=== PATIENT | female | born 1945 | race Caucasian/White ===

== ENCOUNTER 2020-01-02 14:41 | Outpatient (CLI) | payer MEDICARE, SELFPAY ==
--- NOTE | 2020-01-02 14:49 | XR_ITS ---
WS: [id number] XR chest 2V* [id number] REASON FOR EXAM: DYSPNEA, PERIPHERAL EDEMA, ACUTE LOWER RTI FINDINGS: The cardiac silhouette is not enlarged there is evidence of previous coronary bypass change s and sternotomy findings. Both lung garcia appear to be adequately aerated there is chronic changes in both lung garcia and the re is mild blunting of the right costophrenic angle similar to the previous exam April 06, 2019. There was no pneumonia are pulmonary edema or pleural effusion seen. XR/XR chest 2V* [id number] IMPRESSION: Previous coronary bypass changes Arteriosclerotic changes
== END 2020-01-02 14:42 | disposition home or self-care (01) ==
LOC: RAD 14:47
PROVIDERS: Family Provider Family Medicine; PCP Family Medicine; Visit Provider Family Medicine
DX: R06.00 Dyspnea, unspecified (principal); R60.9 Edema, unspecified; J22 Unspecified acute lower respiratory infection; Z95.5 Presence of coronary angioplasty implant and graft
CPT/HCPCS: 71046

== ENCOUNTER → 2020-01-30 11:36 | Outpatient (BNVA) | payer MEDICARE, SELFPAY | PROVIDERS: Family Provider Family Medicine; PCP Family Medicine; Visit Provider Podiatrist Foot & Ankle Surgery | DX: Q82.8 Other specified congenital malformations of skin (principal); M79.673 Pain in unspecified foot; M19.079 Primary osteoarthritis, unspecified ankle and foot; M77.32 Calcaneal spur, left foot | CPT/HCPCS: 73630 ==

== ENCOUNTER 2020-06-12 14:30 | Outpatient (CLI) | payer MEDICARE, SELFPAY ==
--- NOTE | 2020-06-12 14:36 | XR_ITS ---
WS: [id number] PROCEDURE: XR chest 2V* [id number] CLINICAL INFORMATION: COUGH COMPARISON: January 02, 2020 FINDINGS: Heart: Normal cardiac silhouette. Sternotomy coronary bypass Lungs: Moderate chronic emphysematous changes with mild interstitial thickening in the lung bases. Ti ny right pleural effusion pleural thickening. No acute pulmonary infiltrates. No focal pneumonia. Bones: Mild thoracic curve. XR/XR chest 2V* [id number] IMPRESSION: 1. Moderate chronic emphysematous changes. No acute pulmonary infiltrates. 2. Trace right pleural fluid or pleural thickening unchanged. 3. No other significant findings.
== END 2020-06-12 14:31 | disposition home or self-care (01) ==
LOC: RADWPI 14:34
PROVIDERS: Family Provider Family Medicine; PCP Family Medicine; Visit Provider Family Medicine
DX: R05 Cough (principal)
CPT/HCPCS: 71046

== ENCOUNTER 2020-07-03 03:57 | Emergency (ER) | payer MEDICARE, SELFPAY ==
[2020-07-03] VITALS (7 sets, daily range): BP systolic 123–180; BP diastolic 66–87; PULSE 60–82; RESP 16–21; TEMP 36.7; O2SAT 94–100; BMI 22.4
--- NOTE | 2020-07-03 04:19 | XR_ITS ---
WS: [id number] XR chest 1V portable [id number] REASON FOR EXAM: Syncope FINDINGS: Compared to previous examination of 06/12/2020, no significant interval change is identified. Previous coronary bypass surgery. Multiple coronary artery stents. Heart mildly enlarged. Chronic appearing interstitial changes in both lower lungs with mild blunting of both costophrenic an gles. XR/XR chest 1V portable [id number] IMPRESSION: Stable abnormal chest as above.
--- NOTE | 2020-07-03 04:19 | CTR_ITS ---
PROCEDURE INFORMATION: Exam: CT Head Without Contrast Exam date and time: 07/03/2020 4:43 AM Age: 75 years old Clinical indication: Injury or trauma; Fall; Blunt trauma (contusions or hematomas); Without loss of consciousness; Additional info: Syncope/injury TECHNIQUE: Imaging protocol: Computed tomography of the head without contrast. Radiation optimization: All CT scans at this facility use at least one of these dose optimization techniques: automated exposure control; mA and/or kV adjustment per patient size (includes targeted exams where dose is matched to clinical indication); or iterative reconstruction. COMPARISON: No relevant prior studies available. RADIATION DOSE METRICS: Total DLP (mGy-cm): 852.67 FINDINGS: Brain: There is decreased white matter density indicating chronic small vessel white matter ischemia. There is moderate diffuse chronic atrophy. No other abnormal focal parenchymal densities are seen. There is no intracranial hemorrhage, edema or other acute abnormality in the brain. Cerebral ventricles: No ventriculomegaly. Bones/joints: Unremarkable. No acute fracture. Paranasal sinuses: Visualized sinuses are unremarkable. No fluid levels. Mastoid air cells: Visualized mastoid air cells are well aerated. Vasculature: There is atherosclerotic calcification of the vertebral arteries and internal carotid siphons. Soft tissues: Unremarkable. CT/CT head wo con* [id number] IMPRESSION: 1. Chronic atrophy with chronic white matter ischemic changes. 2. No acute intracranial abnormality. Radiation Dose CTDIVOL = (mGy): DLP = 852.67 (mGy-cm)
--- NOTE | 2020-07-03 04:23 | ECG_ITS ---
[facility] Test Date: 2020-07-03 Pat Name: Ying Valdez Department: Room: Gender: Female Media Promoter: : 1945 Requested By: Shelbie Darden Order Number: [id number] Michael MD: Antonieta Ely M.D. Measurements Intervals [place] Rate: 77 P: [place]: -1 QRS: 118 QRSD: 144 T: -18 QT: 448 QTc: 509 Interpretive Statements ATRIAL FIBRILLATION RIGHT BUNDLE BRANCH BLOCK LEFT POSTERIOR FASCICULAR BLOCK [QRS AXIS > 109, INFERIOR Q] ST DEPRESSION, CONSIDER SUBENDOCARDIAL INJURY [0.1+ mV ST DEPRESSION] Compared to ECG 04/15/2019 06:08:13 Right bundle-branch block now present Left posterior fascicular block now present ST (T wave) deviation now present Sinus rhythm no longer present Sinus arrhythmia no longer present First degree AV block no longer present Intraventricular conduction delay no longer present Electronically Signed On 07-03-2020 19:18:33 STAFF READINESS OFFICER by Antonieta Ely M.D. [email or web address]
--- NOTE | 2020-07-03 04:32 | ED_ITS ---
Documented by User: Shelbie Beyer 07/03/20 05:15 HPI - Fall General: Chief Complaint: Fall Stated Complaint: fall Time Seen by Provider: 07/03/20 04:15 Source: patient and family Mode of arrival: ambulatory Limitations: no limitations History of Present Illness: HPI Narrative: Mrs. Valdez is a nice 75-year-old female who comes in complaining of weakness, injury to her head and a possible syncopal spell. Patient states she is been sick for the past few days secondary to respiratory symptoms with cough and wheezing. She denies fever. Patient sta shannan tonight she went in to go to the bathroom and when she tried to get off the toilet she believes she may have briefly passed out. She fell forward and hit her head on the ground. She believes she had loss of consciousness before this though. Patient stated she was too weak to get up off the floor and EMS had to be called. She got lift assistance but ultimately chose not to transport by EMS and came in by private car. Patient denies any preceding chest pain or shortness of breath. She is not remember any rapid palpitations. Patient states currently she just feels weak and tired. Associated symptoms-after fall: Denies abdominal pain, chest pain, confusion, difficulty walking, headache(s), hematuria, lightheadedness, neck pain or vertigo Review of Systems Const: Reports: fatigue and malaise; Denies: fever(s), chills, body aches or diaphoresis Eyes: Denies: change in vision, blurry vision, photophobia, eye discomfort, eye discharge, eye redness or yellow eyes ENMT: Denies: throat pain, odynophagia, hoarseness, swelling of lips/tongue, ear or mastoid pain, ear discharge, change in hearing or nasal discharge Card: Reports: syncope; Denies: chest pain, palpitations, irregular heart rhythm, edema, lighthe adedness, pre-syncope, dyspnea on exertion or orthopnea Resp: Reports: wheezing; Denies: dyspnea, productive cough, non-productive cough, hemoptysis or chest congestion GI: Denies: abdominal pain, nausea, vomiting, hematemesis, coffee ground emesis, heartburn, diarrhea, constipation, GI cramping, hematochezia or melena : Denies: flank pain, dysuria, urinary frequency, urinary urgency or hematuria Musc: Denies: neck pain, back pain, extremity pain, extremity swelling, joint pain, joint swelling, joint redness, joint warmth or joint stiffness Skin/Breast: Denies: rash, pruritus, erythema, skin pain or skin tenderness Neuro: Denies: headache(s), numbness in extremities, weakness in extremities, sensory changes, lack of coordination, difficulty walking, dizziness, vertigo, confusion, Slurred speech present or seizure-like activity Cristian/Lymph: Denies: easy bruising, easy bleeding, petechiae, purpura or enlarged lymph nodes All/Imm: Denies: urticaria, throat swelling, tongue swelling, facial swelling or acute wheezing PFSH ED PFSH: Medical History Aortic stenosis CAD (coronary artery disease) Chronic kidney disease Surgical History Hx of CABG Family History Mother Stroke Diabetes Brother Stroke Diabetes Social History Smoking and tobacco status: never smoked Alcohol intake: never Current occupational status: retired Physical Exam Const: COMMON NORMALS: no acute distress, patient oriented x3, no limitations and alert GENERAL APPEARANCE: cooperative HENMT: COMMON NORMALS: external ears normal, EAC's normal and Normal external nose present HEAD & SCALP: normal to inspection and other (Contusion noted superior and lateral to the left periorbital area.) FACE & SINUS: normal facial exam and face symmetric NOSE: Normal external nose present and Normal nares present EXTERNAL EAR: Yes external ears normal EXTERNAL AUDITORY CANAL: EAC's normal MOUTH: Normal oral and palatal mucosa present, lip normal and tongue normal Eye: COMMON NORMALS: Equal, round and reactive pupils present and conjunctivae normal GENERAL EYE: appearance normal, both eyes and all related structures ALIGNMENT: Yes alignment normal PERIORBITAL: periorbital findings normal EYELID: eyelids normal CONJUNCTIVA: Yes conjunctivae normal SCLERA: sclerae normal PUPIL: Yes Equal, round and reactive pupils present Neck/C-Spine: COMMON NORMALS: full ROM, no lymphadenopathy, supple, no meningeal signs and no JVD GENERAL: Yes normal visual inspection and Yes trachea midline Chest: COMMONS NORMALS: normal inspection of the chest and normal palpation of entire chest wall Resp: COMMON NORMALS: normal respiratory effort, No retractions and No use of accessory muscles EFFORT & INSPECTION: Yes able to speak in complete sentences and Yes symmetric chest movement AUSCULTATION: no crackles, no rales, no rhonchi and wheezes Cardio: COMMON NORMALS: no JVD, regular rate, regular rhythm, S1 normal heart sound present and S2 normal heart sound present RATE: regular rate RHYTHM: regular rhythm HEART SOUNDS: S1 normal heart sound present, S2 normal heart sound present, no click, no gallops, no murmurs and no rubs GI: COMMON NORMALS: Soft to palpation and No hepatosplenomegaly present PALPATION: Yes Soft to palpation, No Tenderness to palpation present (GI), No Guarding due to palpation present (GI), No Rigid due to palpation, Yes No hepatosplenomegaly present, No Hernia present, No Palpable mass present and No Pulsatile mass present : COMMON NORMALS: Yes no CVA tenderness BLADDER/KIDNEY EXAM: Yes no CVA tenderness EXTERNAL FEMALE EXAM: No Hernia present Back/Pelvis: COMMON NORMALS: no CVA tenderness, thoracic and lumbar spine normal to inspection, no thoracic nor lumbar tenderness and thoraco-lumbar ROM normal Extremity: COMMON NORMALS: normal to inspection, full ROM, capillary refill normal, no joint enlargement, no clubbing, cyanosis or edema and no calf tenderness Neuro: COMMON NORMALS: patient oriented x3, CN's II-XII intact bilaterally, moves all extremities, no focal motor deficits and no sensory deficits noted SENSORIUM/ORIENTATION: Yes alert MENINGEAL SIGNS: Yes no meningeal signs SPEECH: speech normal Psych: COMMON NORMALS: mental status grossly normal, Normal thought process present, cooperative, normal affect, speech normal and activity/motor behavior normal SPEECH: Yes normal speech THOUGHT PROCESS: Normal thought process present Skin: COMMON NORMALS: no rashes or lesions noted, turgor normal, no jaundice, no petechiae and no mottling GENERAL SKIN EXAM: no rashes or lesions noted and turgor normal Course ED course: 0507 -orthostatic vital signs normal. No sign of orthostasis. Vital Signs: Vital signs: Vital Signs Temperature 98.1 F 07/03/20 04:06 Pulse Rate 69 07/03/20 10:25 Respiratory Rate 18 07/03/20 10:25 Blood Pressure 131/72 07/03/20 10:25 Pulse Oximetry 95 07/03/20 10:25 MDM - Fall Lab Data: Labs: Lab Results 07/03/20 07/03/20 07/03/20 Range/Units 04:41 04:41 04:41 WBC 5.2 (4.0-10.0) 10^3/ uL RBC 3.15 L (4.1-5.3) 10^6/u L Hgb 10.8 L (11.5-15.3) g/dL Hct 33.2 L (37.0-47.0) % MCV 105.4 H (81-99) fL MCH 34.3 H (28.0-34.0) pg MCHC 32.5 (30.0-36.0) g/dL RDW 14.0 (12.1-15.1) % Plt Count 119 L (130-400) 10^3/c mm MPV 10.2 (7.4-10.4) fL Neut % (Auto) 68.3 % Lymph % (Auto) 19.7 % Harney % (Auto) 9.8 % Eos % (Auto) 1.0 % Baso % (Auto) 0.6 % Neut # (Auto) 3.55 (1.8-7.7) 10^3/u L Lymph # (Auto) 1.0 (0.8-4.8) 10^3/u L Harney # (Auto) 0.5 (0.2-0.9) 10^3/u L Eos # (Auto) 0.1 (0.0-0.8) 10^3/u L Baso # (Auto) 0.0 (0.0-0.1) 10^3/u L Nucleated RBC % (a uto) 0 % Nucleated RBCs # 0.0 /100WBC PT 17.80 H (12.1-14.9) SECO NDS INR 1.42 H (0.8-1.2) Sodium 135 L (136-145) mmol/L Potassium 4.0 (3.5-5.1) mmol/L Chloride 104 (98-107) mmol/L Carbon Dioxide 21 L (22-29) mmol/L Anion Gap 14.0 (5-19) BUN 23 (8-23) mg/dL Creatinine 1.6 H (0.5-0.9) mg/dL GFR Calculation Not Reportable Glucose 155 H (65-115) mg/dL POC Glucose (70-110) mg/dL Calculated Osmolal ity 287 (285-295) mOsm/k g Calcium 8.3 L (8.5-10.5) mg/dL Magnesium 1.8 (1.7-2.3) mg/dL Total Bilirubin 0.4 (0.15-1.2) mg/dL AST 71 H (0-32) U/L ALT 28 (0-33) U/L Alkaline Phosphata se 85 (35-105) IU/L Creatine Kinase 377 H* (26-192) U/L Troponin T Baselin e (0-10) ng/L Troponin T 120 Min [place] (0-10) ng/L Delta Troponin T (0-10) ABS# Total Protein 6.9 (6.6-8.7) g/dL Albumin 2.9 L (3.5-5.2) g/dL Globulin 4.0 (1.3-4.6) g/dL Lipase 7 L (13-60) U/L TSH 2.44 (0.27-4.20) uIU/ mL Free T4 1.31 (0.82-1.77) ng/d L Urine Color (Yellow) Urine Appearance (CLEAR) Urine pH (5-7) Ur Specific Gravit y (1.005-1.030) Urine Protein (Negative) Urine Glucose (UA) (Normal) Urine Ketones (Negative) Urine Blood (Negative) Urine Nitrate (Negative) Urine Bilirubin (Negative) Urine Urobilinogen (Negative) mg/dL Ur Leukocyte Niesha ase (Negative) Urine RBC (0-2) /hpf Urine WBC (0-5) /hpf Ur Squamous Epith Cells (0-5) /hpf Amorphous Sediment Urine Bacteria (NONE) /hpf SARS-CoV-2 Ag (Rap id) 07/03/20 07/03/20 07/03/20 Range/Units 04:41 05:50 06:03 WBC (4.0-10.0) 10^3/ uL RBC (4.1-5.3) 10^6/u L Hgb (11.5-15.3) g/dL Hct (37.0-47.0) % MCV (81-99) fL MCH (28.0-34.0) pg MCHC (30.0-36.0) g/dL RDW (12.1-15.1) % Plt Count (130-400) 10^3/c mm MPV (7.4-10.4) fL Neut % (Auto) % Lymph % (Auto) % Harney % (Auto) % Eos % (Auto) % Baso % (Auto) % Neut # (Auto) (1.8-7.7) 10^3/u L Lymph # (Auto) (0.8-4.8) 10^3/u L Harney # (Auto) (0.2-0.9) 10^3/u L Eos # (Auto) (0.0-0.8) 10^3/u L Baso # (Auto) (0.0-0.1) 10^3/u L Nucleated RBC % (a uto) % Nucleated RBCs # /100WBC PT (12.1-14.9) SECO NDS INR (0.8-1.2) Sodium (136-145) mmol/L Potassium (3.5-5.1) mmol/L Chloride (98-107) mmol/L Carbon Dioxide (22-29) mmol/L Anion Gap (5-19) BUN (8-23) mg/dL Creatinine (0.5-0.9) mg/dL GFR Calculation Glucose (65-115) mg/dL POC Glucose (70-110) mg/dL Calculated Osmolal ity (285-295) mOsm/k g Calcium (8.5-10.5) mg/dL Magnesium (1.7-2.3) mg/dL Total Bilirubin (0.15-1.2) mg/dL AST (0-32) U/L ALT (0-33) U/L Alkaline Phosphata se (35-105) IU/L Creatine Kinase (26-192) U/L Troponin T Baselin e 76 H (0-10) ng/L Troponin T 120 Min [place] 70.63 H (0-10) ng/L Delta Troponin T -5.37 L (0-10) ABS# Total Protein (6.6-8.7) g/dL Albumin (3.5-5.2) g/dL Globulin (1.3-4.6) g/dL Lipase (13-60) U/L TSH (0.27-4.20) uIU/ mL Free T4 (0.82-1.77) ng/d L Urine Color Yellow (Yellow) Urine Appearance Clear (CLEAR) Urine pH 5.0 (5-7) Ur Specific Gravit y 1.015 (1.005-1.030) Urine Protein Neg (Negative) Urine Glucose (UA) Norm (Normal) Urine Ketones Negative (Negative) Urine Blood Neg (Negative) Urine Nitrate Negative (Negative) Urine Bilirubin Neg (Negative) Urine Urobilinogen Norm (Negative) mg/dL Ur Leukocyte Niesha ase 1+ H (Negative) Urine RBC None (0-2) /hpf Urine WBC 0-4 H (0-5) /hpf Ur Squamous Epith Cells 10-15 H (0-5) /hpf Amorphous Sediment Not Reportable Urine Bacteria Trace (NONE) /hpf SARS-CoV-2 Ag (Rap id) 07/03/20 07/03/20 Range/Units 06:48 09:21 WBC (4.0-10.0) 10^3/ uL RBC (4.1-5.3) 10^6/u L Hgb (11.5-15.3) g/dL Hct (37.0-47.0) % MCV (81-99) fL MCH (28.0-34.0) pg MCHC (30.0-36.0) g/dL RDW (12.1-15.1) % Plt Count (130-400) 10^3/c mm MPV (7.4-10.4) fL Neut % (Auto) % Lymph % (Auto) % Harney % (Auto) % Eos % (Auto) % Baso % (Auto) % Neut # (Auto) (1.8-7.7) 10^3/u L Lymph # (Auto) (0.8-4.8) 10^3/u L Harney # (Auto) (0.2-0.9) 10^3/u L Eos # (Auto) (0.0-0.8) 10^3/u L Baso # (Auto) (0.0-0.1) 10^3/u L Nucleated RBC % (a uto) % Nucleated RBCs # /100WBC PT (12.1-14.9) SECO NDS INR (0.8-1.2) Sodium (136-145) mmol/L Potassium (3.5-5.1) mmol/L Chloride (98-107) mmol/L Carbon Dioxide (22-29) mmol/L Anion Gap (5-19) BUN (8-23) mg/dL Creatinine (0.5-0.9) mg/dL GFR Calculation Glucose (65-115) mg/dL POC Glucose 148 (70-110) mg/dL Calculated Osmolal ity (285-295) mOsm/k g Calcium (8.5-10.5) mg/dL Magnesium (1.7-2.3) mg/dL Total Bilirubin (0.15-1.2) mg/dL AST (0-32) U/L ALT (0-33) U/L Alkaline Phosphata se (35-105) IU/L Creatine Kinase (26-192) U/L Troponin T Baselin e (0-10) ng/L Troponin T 120 Min [place] (0-10) ng/L Delta Troponin T (0-10) ABS# Total Protein (6.6-8.7) g/dL Albumin (3.5-5.2) g/dL Globulin (1.3-4.6) g/dL Lipase (13-60) U/L TSH (0.27-4.20) uIU/ mL Free T4 (0.82-1.77) ng/d L Urine Color (Yellow) Urine Appearance (CLEAR) Urine pH (5-7) Ur Specific Gravit y (1.005-1.030) Urine Protein (Negative) Urine Glucose (UA) (Normal) Urine Ketones (Negative) Urine Blood (Negative) Urine Nitrate (Negative) Urine Bilirubin (Negative) Urine Urobilinogen (Negative) mg/dL Ur Leukocyte Niesha ase (Negative) Urine RBC (0-2) /hpf Urine WBC (0-5) /hpf Ur Squamous Epith Cells (0-5) /hpf Amorphous Sediment Urine Bacteria (NONE) /hpf SARS-CoV-2 Ag (Rap id) Cancelled Imaging Data^: CXR: Attestation: I personally reviewed and interpreted this imaging study as follows: My impression: Interstitial prominence. EKG Data^: EKG 1: Attestation: I personally reviewed and interpreted this EKG as follows: EKG interpretation date: 07/03/20 EKG interpretation time: 04:39 Interpretation: Atrial fibrillation with a ventricular rate of 77 beats a minute, right axis deviation, right bundle branch block, nonspecific ST and T wave changes. Wandering baseline artifact present. Discharge Plan Discharge Patient Disposition: Home Clinical Impression: Near syncope, Suspected 2019 novel coronavirus infection CHI (closed head injury) Qualifiers: Encounter type: initial encounter Qualified Code(s): S09.90XA - Unspecified injury of head, initial encounter Condition: Stable Prescriptions: No Action clopidogrel [Plavix] 75 mg tablet 75 mg PO DAILY RF: 0 atorvastatin 20 mg tablet 20 mg PO DAILY RF: 0 isosorbide mononitrate 120 mg tablet extended release 24 hr 120 mg PO DAILY RF: 0 levothyroxine 125 mcg capsule 125 mcg PO DAILY RF: 0 pantoprazole [Protonix] 20 mg tablet,delayed release (DR/EC) 20 mg PO DAILY RF: 0 Bystolic 2.5 mg tablet 2.5 mg PO DAILY RF: 0 insulin NPH-regular hum s-syn 100 unit/mL (70-30) cartridge SUBCUT RF: 0 aspirin [Adult Aspirin Regimen] 81 mg tablet,delayed release (DR/EC) 81 mg PO DAILY RF: 0 furosemide 40 mg tablet 40 mg PO BID PRN (Reason: weight gain) Qty: 180 RF: 3 potassium chloride 20 mEq tablet extended release 20 meq PO DAILY Qty: 90 RF: 3 ferrous sulfate 325 mg (65 mg iron) Tablet 650 mg PO DAILY RF: 0 glimepiride 4 mg Tablet 4 mg PO DAILY RF: 0 Discharge Orders: Discharge Order (Routine); Ordered 07/03/20 Ordered By: Lary Beach Other Ambulatory Orders: DME: Walker (Order) Location: None Selected Ordered By: Lary Beach Referrals: Jett Chaney DO [Primary Care Provider] - Discharge Diet: Usual diet Discharge Activity: Limit activity as instructed and Use walker/crutches as instructed Patient Instructions: Viral Syndrome (ED), Near Syncope (ED) Activity Restrictions/Additional Instructions: Rest. Use caution with getting up and around to avoid further falls. We sent her home with a pulse oximeter to monitor oxygen. You should check yours as well. You should follow-up with Dr. Julian to discuss your difficulty ambulating and today's symptoms and ER visit. Please return to the ER if you have any further problems or wish to have further evaluation and treatment. Discharge Date/Time: 07/03/20 10:26 Coding Level of Care Code ED Body Piercer for Fabiola Fwd Exam Comprehensive Documented by User: Lary Beach MD 07/03/20 10:50 HPI - Fall General: Chief Complaint: Fall Stated Complaint: fall Time Seen by Provider: 07/03/20 04:15 [facility] ED PFSH: Medical History Aortic stenosis CAD (coronary artery disease) Chronic kidney disease Surgical History Hx of CABG Family History Mother Stroke Diabetes Brother Stroke Diabetes Social History Smoking and tobacco status: never smoked Alcohol intake: never Current occupational status: retired Course ED course: I assumed care of this patient from Dr. Mahoney. Her CTs were negative. Her laboratory studies were fairly unremarkable. Covid testing was attempted but both times the results came back as invalid. The reasons for this are not clear. The lab did QA testing on the equipment and it seemed to be functioning normally. The patient refused any further testing including a PCR. Her family was unhappy with her long stay in the ER. I suggested that we admit her for her syncopal episode and her daughter insisted that she had not had a syncopal episode. The patient herself did not wish to be admitted. I discussed my concerns that she might have Covid and could worsen. The patient's daughter said it is just a virus and it will run its course we discussed possible complications. The patient's was also here with weakness. I also discussed signs to watch for with he and his son and also gave him a pulse oximeter which he is going to share with this patient. Her daughter also requested that we send her home with a walker. Apparently the patient's been having some problems with instability for quite a while. She has not discussed this with her primary care doctor and I asked her to please do so. We discussed that a walker would not help with a syncopal episode and the family needs to watch her closely since she does not want to be admitted to the hospital. Vital Signs: Vital signs: Vital Signs Temperature 98.1 F 07/03/20 04:06 Pulse Rate 69 07/03/20 10:25 Respiratory Rate 18 07/03/20 10:25 Blood Pressure 131/72 07/03/20 10:25 Pulse Oximetry 95 07/03/20 10:25 MDM - Fall Lab Data: Labs: Lab Results 07/03/20 07/03/20 07/03/20 Range/Units 04:41 04:41 04:41 WBC 5.2 (4.0-10.0) 10^3/ uL RBC 3.15 L (4.1-5.3) 10^6/u L Hgb 10.8 L (11.5-15.3) g/dL Hct 33.2 L (37.0-47.0) % MCV 105.4 H (81-99) fL MCH 34.3 H (28.0-34.0) pg MCHC 32.5 (30.0-36.0) g/dL RDW 14.0 (12.1-15.1) % Plt Count 119 L (130-400) 10^3/c mm MPV 10.2 (7.4-10.4) fL Neut % (Auto) 68.3 % Lymph % (Auto) 19.7 % Harney % (Auto) 9.8 % Eos % (Auto) 1.0 % Baso % (Auto) 0.6 % Neut # (Auto) 3.55 (1.8-7.7) 10^3/u L Lymph # (Auto) 1.0 (0.8-4.8) 10^3/u L Harney # (Auto) 0.5 (0.2-0.9) 10^3/u L Eos # (Auto) 0.1 (0.0-0.8) 10^3/u L Baso # (Auto) 0.0 (0.0-0.1) 10^3/u L Nucleated RBC % (a uto) 0 % Nucleated RBCs # 0.0 /100WBC PT 17.80 H (12.1-14.9) SECO NDS INR 1.42 H (0.8-1.2) Sodium 135 L (136-145) mmol/L Potassium 4.0 (3.5-5.1) mmol/L Chloride 104 (98-107) mmol/L Carbon Dioxide 21 L (22-29) mmol/L Anion Gap 14.0 (5-19) BUN 23 (8-23) mg/dL Creatinine 1.6 H (0.5-0.9) mg/dL GFR Calculation Not Reportable Glucose 155 H (65-115) mg/dL POC Glucose (70-110) mg/dL Calculated Osmolal ity 287 (285-295) mOsm/k g Calcium 8.3 L (8.5-10.5) mg/dL Magnesium 1.8 (1.7-2.3) mg/dL Total Bilirubin 0.4 (0.15-1.2) mg/dL AST 71 H (0-32) U/L ALT 28 (0-33) U/L Alkaline Phosphata se 85 (35-105) IU/L Creatine Kinase 377 H* (26-192) U/L Troponin T Baselin e (0-10) ng/L Troponin T 120 Min [place] (0-10) ng/L Delta Troponin T (0-10) ABS# Total Protein 6.9 (6.6-8.7) g/dL Albumin 2.9 L (3.5-5.2) g/dL Globulin 4.0 (1.3-4.6) g/dL Lipase 7 L (13-60) U/L TSH 2.44 (0.27-4.20) uIU/ mL Free T4 1.31 (0.82-1.77) ng/d L Urine Color (Yellow) Urine Appearance (CLEAR) Urine pH (5-7) Ur Specific Gravit y (1.005-1.030) Urine Protein (Negative) Urine Glucose (UA) (Normal) Urine Ketones (Negative) Urine Blood (Negative) Urine Nitrate (Negative) Urine Bilirubin (Negative) Urine Urobilinogen (Negative) mg/dL Ur Leukocyte Niesha ase (Negative) Urine RBC (0-2) /hpf Urine WBC (0-5) /hpf Ur Squamous Epith Cells (0-5) /hpf Amorphous Sediment Urine Bacteria (NONE) /hpf SARS-CoV-2 Ag (Rap id) 07/03/20 07/03/20 07/03/20 Range/Units 04:41 05:50 06:03 WBC (4.0-10.0) 10^3/ uL RBC (4.1-5.3) 10^6/u L Hgb (11.5-15.3) g/dL Hct (37.0-47.0) % MCV (81-99) fL MCH (28.0-34.0) pg MCHC (30.0-36.0) g/dL RDW (12.1-15.1) % Plt Count (130-400) 10^3/c mm MPV (7.4-10.4) fL Neut % (Auto) % Lymph % (Auto) % Harney % (Auto) % Eos % (Auto) % Baso % (Auto) % Neut # (Auto) (1.8-7.7) 10^3/u L Lymph # (Auto) (0.8-4.8) 10^3/u L Harney # (Auto) (0.2-0.9) 10^3/u L Eos # (Auto) (0.0-0.8) 10^3/u L Baso # (Auto) (0.0-0.1) 10^3/u L Nucleated RBC % (a uto) % Nucleated RBCs # /100WBC PT (12.1-14.9) SECO NDS INR (0.8-1.2) Sodium (136-145) mmol/L Potassium (3.5-5.1) mmol/L Chloride (98-107) mmol/L Carbon Dioxide (22-29) mmol/L Anion Gap (5-19) BUN (8-23) mg/dL Creatinine (0.5-0.9) mg/dL GFR Calculation Glucose (65-115) mg/dL POC Glucose (70-110) mg/dL Calculated Osmolal ity (285-295) mOsm/k g Calcium (8.5-10.5) mg/dL Magnesium (1.7-2.3) mg/dL Total Bilirubin (0.15-1.2) mg/dL AST (0-32) U/L ALT (0-33) U/L Alkaline Phosphata se (35-105) IU/L Creatine Kinase (26-192) U/L Troponin T Baselin e 76 H (0-10) ng/L Troponin T 120 Min [place] 70.63 H (0-10) ng/L Delta Troponin T -5.37 L (0-10) ABS# Total Protein (6.6-8.7) g/dL Albumin (3.5-5.2) g/dL Globulin (1.3-4.6) g/dL Lipase (13-60) U/L TSH (0.27-4.20) uIU/ mL Free T4 (0.82-1.77) ng/d L Urine Color Yellow (Yellow) Urine Appearance Clear (CLEAR) Urine pH 5.0 (5-7) Ur Specific Gravit y 1.015 (1.005-1.030) Urine Protein Neg (Negative) Urine Glucose (UA) Norm (Normal) Urine Ketones Negative (Negative) Urine Blood Neg (Negative) Urine Nitrate Negative (Negative) Urine Bilirubin Neg (Negative) Urine Urobilinogen Norm (Negative) mg/dL Ur Leukocyte Niesha ase 1+ H (Negative) Urine RBC None (0-2) /hpf Urine WBC 0-4 H (0-5) /hpf Ur Squamous Epith Cells 10-15 H (0-5) /hpf Amorphous Sediment Not Reportable Urine Bacteria Trace (NONE) /hpf SARS-CoV-2 Ag (Rap id) 07/03/20 07/03/20 Range/Units 06:48 09:21 WBC (4.0-10.0) 10^3/ uL RBC (4.1-5.3) 10^6/u L Hgb (11.5-15.3) g/dL Hct (37.0-47.0) % MCV (81-99) fL MCH (28.0-34.0) pg MCHC (30.0-36.0) g/dL RDW (12.1-15.1) % Plt Count (130-400) 10^3/c mm MPV (7.4-10.4) fL Neut % (Auto) % Lymph % (Auto) % [place]ney % (Auto) % Eos % (Auto) % Baso % (Auto) % Neut # (Auto) (1.8-7.7) 10^3/u L Lymph # (Auto) (0.8-4.8) 10^3/u L Harney # (Auto) (0.2-0.9) 10^3/u L Eos # (Auto) (0.0-0.8) 10^3/u L Baso # (Auto) (0.0-0.1) 10^3/u L Nucleated RBC % (a uto) % Nucleated RBCs # /100WBC PT (12.1-14.9) SECO NDS INR (0.8-1.2) Sodium (136-145) mmol/L Potassium (3.5-5.1) mmol/L Chloride (98-107) mmol/L Carbon Dioxide (22-29) mmol/L Anion Gap (5-19) BUN (8-23) mg/dL Creatinine (0.5-0.9) mg/dL GFR Calculation Glucose (65-115) mg/dL POC Glucose 148 (70-110) mg/dL Calculated Osmolal ity (285-295) mOsm/k g Calcium (8.5-10.5) mg/dL Magnesium (1.7-2.3) mg/dL Total Bilirubin (0.15-1.2) mg/dL AST (0-32) U/L ALT (0-33) U/L Alkaline Phosphata se (35-105) IU/L Creatine Kinase (26-192) U/L Troponin T Baselin e (0-10) ng/L Troponin T 120 Min [place] (0-10) ng/L Delta Troponin T (0-10) ABS# Total Protein (6.6-8.7) g/dL Albumin (3.5-5.2) g/dL Globulin (1.3-4.6) g/dL Lipase (13-60) U/L TSH (0.27-4.20) uIU/ mL Free T4 (0.82-1.77) ng/d L Urine Color (Yellow) Urine Appearance (CLEAR) Urine pH (5-7) Ur Specific Gravit y (1.005-1.030) Urine Protein (Negative) Urine Glucose (UA) (Normal) Urine Ketones (Negative) Urine Blood (Negative) Urine Nitrate (Negative) Urine Bilirubin (Negative) Urine Urobilinogen (Negative) mg/dL Ur Leukocyte Niesha ase (Negative) Urine RBC (0-2) /hpf Urine WBC (0-5) /hpf Ur Squamous Epith Cells (0-5) /hpf Amorphous Sediment Urine Bacteria (NONE) /hpf SARS-CoV-2 Ag (Rap id) Cancelled Discharge Plan Discharge Patient Disposition: Home Clinical Impression: Near syncope, Suspected 2019 novel coronavirus infection CHI (closed head injury) Qualifiers: Encounter type: initial encounter Qualified Code(s): S09.90XA - Unspecified injury of head, initial encounter Condition: Stable Prescriptions: No Action clopidogrel [Plavix] 75 mg tablet 75 mg PO DAILY RF: 0 atorvastatin 20 mg tablet 20 mg PO DAILY RF: 0 isosorbide mononitrate 120 mg tablet extended release 24 hr 120 mg PO DAILY RF: 0 levothyroxine 125 mcg capsule 125 mcg PO DAILY RF: 0 pantoprazole [Protonix] 20 mg tablet,delayed release (DR/EC) 20 mg PO DAILY RF: 0 Bystolic 2.5 mg tablet 2.5 mg PO DAILY RF: 0 insulin NPH-regular hum s-syn 100 unit/mL (70-30) cartridge SUBCUT RF: 0 aspirin [Adult Aspirin Regimen] 81 mg tablet,delayed release (DR/EC) 81 mg PO DAILY RF: 0 furosemide 40 mg tablet 40 mg PO BID PRN (Reason: weight gain) Qty: 180 RF: 3 potassium chloride 20 mEq tablet extended release 20 meq PO DAILY Qty: 90 RF: 3 ferrous sulfate 325 mg (65 mg iron) Tablet 650 mg PO DAILY RF: 0 glimepiride 4 mg Tablet 4 mg PO DAILY RF: 0 Discharge Orders: Discharge Order (Routine); Ordered 07/03/20 Ordered By: Lary [place] Other Ambulatory Orders: DME: [facility] (Order) Location: None Selected Ordered By: Lary [place] Referrals: Jett Chaney DO [Primary Care Provider] - Discharge Diet: Usual diet Discharge Activity: Limit activity as instructed and Use walker/crutches as instructed Patient Instructions: Viral Syndrome (ED), Near Syncope (ED) Activity Restrictions/Additional Instructions: Rest. Use caution with getting up and around to avoid further falls. We sent her home with a pulse oximeter to monitor oxygen. You should check yours as well. You should follow-up with Dr. Julian to discuss your difficulty ambulating and today's symptoms and ER visit. Please return to the ER if you have any further problems or wish to have further evaluation and treatment. Discharge Date/Time: 07/03/20 10:26 Coding Level of Care Code ED Body Piercer for Fabiola Fwd Exam Comprehensive
[2020-07-03 04:48] LABS: Basophils % 0.6 %; Eosinophils # 0.1 10^3/uL (0.0-0.8); Hematocrit 33.2 % (37.0-47.0); Hemoglobin 10.8 g/dL (11.5-15.3); Lymphocytes % 19.7 %; Mean Corpuscular HGB Conc 32.5 g/dL (30.0-36.0); Mean Corpuscular Hemoglobin 34.3 pg (28.0-34.0); Mean Corpuscular Volume 105.4 fL (81-99); Mean Platelet Volume 10.2 fL (7.4-10.4); Monocytes # 0.5 10^3/uL (0.2-0.9); Monocytes % 9.8 %; Neutrophils # 3.55 10^3/uL (1.8-7.7); Neutrophils % 68.3 %; Nucleated Red Blood Cells % 0 %; Platelet Count 119 10^3/cmm (130-400); Red Blood Count 3.15 10^6/uL (4.1-5.3); White Blood Count 5.2 10^3/uL (4.0-10.0)
[2020-07-03 05:05] LABS: INR 1.42 (0.8-1.2)
[2020-07-03 05:14] LABS: Troponin(5th) Baseline 76 ng/L (0-10)
[2020-07-03 05:22] LABS: Alanine Aminotransferase 28 U/L (0-33); Albumin Level 2.9 g/dL (3.5-5.2); Alkaline Phosphatase 85 IU/L (35-105); Aspartate Amino Transferase 71 U/L (0-32); Blood Urea Nitrogen 23 mg/dL (8-23); Calcium 8.3 mg/dL (8.5-10.5); Carbon Dioxide 21 mmol/L (22-29); Chloride 104 mmol/L (98-107); Glucose 155 mg/dL (65-115); Lipase 7 U/L (13-60); Magnesium 1.8 mg/dL (1.7-2.3); Osmolality Calculated 287 mOsm/kg (285-295); Sodium 135 mmol/L (136-145); Thyroid Stimulating Hormone 2.44 uIU/mL (0.27-4.20); Total Bilirubin 0.4 mg/dL (0.15-1.2); Total Protein 6.9 g/dL (6.6-8.7)
[2020-07-03 05:32] LABS: Creatine Phosphokinase 377 U/L (26-192)
[2020-07-03 06:03] LABS: Free T4 Free Thyroxine 1.31 ng/dL (0.82-1.77)
--- NOTE | 2020-07-03 06:23 | ECG_ITS ---
[facility] Test Date: 2020-07-03 Pat Name: Ying Valdez Department: Room: Gender: Female Diplomatic Officer: : 1945 Requested By: Shelbie Darden Order Number: [id number] Fernanda MD: Antonieta Ely M.D. Measurements Intervals [place] Rate: 76 P: MD: -1 QRS: 119 QRSD: 149 T: -32 QT: 439 QTc: 494 Interpretive Statements ATRIAL FIBRILLATION RIGHT BUNDLE BRANCH BLOCK LEFT POSTERIOR FASCICULAR BLOCK ST DEPRESSION, CONSIDER SUBENDOCARDIAL INJURY Compared to ECG 07/03/2020 04:39:30 No significant changes Electronically Signed On 07-03-2020 19:34:06 NEWS REPORTER by Antonieta Ely M.D. [id number]
[2020-07-03 06:47] LABS: Troponin 5 2HR 70.63 ng/L (0-10)
[2020-07-03 06:51] LABS: Troponin 5 2HR Delta -5.37 ABS# (0-10)
[2020-07-03 07:15] LABS: Add Urine Microscopic? YES; Bilirubin Urine Neg (Negative); Blood Urine Neg (Negative); Glucose Urine UA Norm (Normal); Ketones Urine Negative (Negative); Leukocyte Esterase Urine 1+ (Negative); Nitrate Urine Negative (Negative); Protein Urine Neg (Negative); Specific Gravity, Urine 1.015 (1.005-1.030); Urine Appearance Clear (CLEAR); Urine Color Yellow (Yellow); Urobilinogen Urine Norm (Negative)
[2020-07-03 07:17] LABS: WBC Urine 0-4 /hpf (0-5)
[2020-07-03 07:18] LABS: Add Urine Culture? No; Bacteria Urine TRACE /hpf
[2020-07-03 09:25] LABS: Glucose Point of Care 148 mg/dL (70-110)
== END 2020-07-03 10:26 | disposition home or self-care (01) ==
PROVIDERS: Emergency Medicine; Emergency Provider Emergency Medicine; PCP Family Medicine
DX: R55 Syncope and collapse (principal); Z20.828 Contact with and (suspected) exposure to other viral communicable diseases; S09.8XXA Other specified injuries of head, initial encounter; Z79.02 Long term (current) use of antithrombotics/antiplatelets; Z79.4 Long term (current) use of insulin; Z79.82 Long term (current) use of aspirin; I25.10 Atherosclerotic heart disease of native coronary artery without angina pectoris; Z95.1 Presence of aortocoronary bypass graft; W19.XXXA Unspecified fall, initial encounter
CPT/HCPCS: 12345; 36416; 70450; 71045; 80053; 81001; 82550; 82962; 83690; 83735; 84439; 84443; 84484; 85025; 85610; 93005; 99284

== ENCOUNTER 2020-07-10 15:10 | Emergency (ER) | payer MEDICARE, SELFPAY ==
[2020-07-10 15:12] VITALS: BP 170/82; PULSE 78; RESP 18; O2SAT 93
--- NOTE | 2020-07-10 16:41 | XRR_ITS ---
PROCEDURE INFORMATION: Exam: XR Chest, 1 View Exam date and time: 07/10/2020 4:57 PM Age: 75 years old Clinical indication: Cough and other: Chills; Prior surgery; Surgery type: Heart; Additional info: SOB TECHNIQUE: Imaging protocol: XR of the chest Views: 1 view. COMPARISON: CR XR chest 1V portable [id number] 07/03/2020 4:43 AM; 01/02/2020 FINDINGS: Lungs: Mild ground-glass interstitial lung disease left lung base which could reflect active interstitial pneumonitis. Evidence of mild COPD/chronic bronchitis. Moderately advanced senile fibrosis. Pleural space: Unremarkable. No pleural effusion. No pneumothorax. Heart/Mediastinum: Status post sternotomy chest and CABG. Cardiomegaly. Arteriosclerosis. Bones/joints: Unremarkable for age. XR/XR chest 1V portable [id number] IMPRESSION: Mild ground-glass interstitial lung disease left lung base which could reflect active interstitial pneumonitis.
[2020-07-10 17:37] LABS: Basophils % 0.2 %; Eosinophils % 0.2 %; Hematocrit 35.3 % (37.0-47.0); Hemoglobin 11.7 g/dL (11.5-15.3); Lymphocytes % 24.5 %; Mean Corpuscular HGB Conc 33.1 g/dL (30.0-36.0); Mean Corpuscular Hemoglobin 34.2 pg (28.0-34.0); Mean Corpuscular Volume 103.2 fL (81-99); Mean Platelet Volume 10.4 fL (7.4-10.4); Monocytes # 0.3 10^3/uL (0.2-0.9); Monocytes % 7.7 %; Neutrophils # 2.68 10^3/uL (1.8-7.7); Neutrophils % 66.4 %; Nucleated Red Blood Cells % 0 %; Platelet Count 138 10^3/cmm (130-400); Red Blood Count 3.42 10^6/uL (4.1-5.3); Red Cell Distribution Width 14.2 % (12.1-15.1)
[2020-07-10 17:45] LABS: Fibrinogen 443 mg/dL (174-498)
[2020-07-10 17:51] LABS: Lactic Sepsis W/Reflex 1.8 mmol/L (0.5-2.2)
--- NOTE | 2020-07-10 17:52 | ED_ITS ---
HPI - COVID General: Chief Complaint: COVID symptoms Stated Complaint: COVID SYMPTOMS Time Seen by Provider: 07/10/20 16:50 Source: patient Mode of arrival: ambulatory Limitations: no limitations Triage information: No fever, cough or shortness of breath . Exposure to COVID + person last 14 days History of Present Illness: HPI Narrative: 75-year-old female states over the last 3 to 4 days she has had increasing shortness of breath. She is concerned as she had some low readings on her home O2 today. Her pulse ox here is 94% currently on room air. She denies any fever. She states she had a mild cough. Denies any exertional dyspnea. Patient denies any chest pain. She denies any fevers. States she is concerned she may have Covid as she has had some sick contacts. COVID 19 common symptoms: positive non-productive cough and dyspnea; negative fever(s), chills, body aches, headache(s), throat pain, nausea, vomiting or diarrhea COVID 19 other sytmptoms: negative chest pain COVID Results: SARS-CoV-2 Antigen (Rapid) Positive (Negative) H 07/10/20 18:02 07/10/20 Review of Systems Const: Denies: fever(s), chills, body aches or change in appetite Eyes: Denies: blurry vision or eye discomfort ENMT: Denies: throat pain or dental pain Card: Denies: chest pain Resp: Reports: dyspnea and non-productive cough GI: Denies: abdominal pain, nausea, vomiting or diarrhea : Denies: dysuria Musc: Denies: neck pain or back pain Skin/Breast: Denies: rash Neuro: Denies: headache(s) Psych: Denies: depression Cristian/Lymph: Denies: easy bruising All/Imm: Denies: urticaria PFSH ED PFSH: Medical History Aortic stenosis CAD (coronary artery disease) Chronic kidney disease Surgical History Hx of CABG Family History Mother Stroke Diabetes Brother Stroke Diabetes Social History Smoking and tobacco status: never smoked Alcohol intake: never Current occupational status: retired Physical Exam Const: COMMON NORMALS: no acute distress, patient oriented x3 and healthy appearing HENMT: COMMON NORMALS: normocephalic and atraumatic HEAD & SCALP: n ormocephalic and atraumatic Eye: COMMON NORMALS: Equal, round and reactive pupils present and EOMs intact bilaterally PUPIL: Yes Equal, round and reactive pupils present Neck/C-Spine: COMMON NORMALS: full ROM and supple Chest: COMMONS NORMALS: normal inspection of the chest and normal palpation of entire chest wall Resp: COMMON NORMALS: normal respiratory effort, No retractions, No use of accessory muscles and clear to auscultation bilaterally AUSCULTATION: clear to auscultation bilaterally Cardio: COMMON NORMALS: regular rate, regular rhythm and No murmurs present (Cardio) RATE: regular rate RHYTHM: regular rhythm GI: COMMON NORMALS: Normal to inspection, nondistended, normoactive bowel sounds present, Soft to palpation, non-tender and no masses PALPATION: Yes Soft to palpation Extremity: COMMON NORMALS: normal to inspection and full ROM Neuro: COMMON NORMALS: patient oriented x3, moves all extremities and no focal motor deficits Psych: COMMON NORMALS: mental status grossly normal, Normal thought process present and cooperative THOUGHT PROCESS: Normal thought process present Skin: COMMON NORMALS: no rashes or lesions noted and no wounds GENERAL SKIN EXAM: no rashes or lesions noted Course Vital Signs: Vital signs: Vital Signs Pulse Rate 72 07/10/20 18:10 Respiratory Rate 18 07/10/20 18:10 Blood Pressure 139/61 07/10/20 18:10 Pulse Oximetry 90 07/10/20 18:10 MDM - COVID MDM Narrative Medical decision making narrative: Patient presents here with Covid pneumonia. Patient has had no shortness of breath here and her pulse ox continues to be 94% on room air. We will give her Decadron and prescribe her antibiotics for home. Patient is requesting discharge for home. I informed her to continue to monitor her home O2 and if it decreases below 92% consistently she is to return. She is also to return if she has more symptoms. Patient understands and agrees to plan. Lab Data Result diagrams: 07/10/20 17:21 07/10/20 17:21 Labs: Lab Results 07/10/20 07/10/20 07/10/20 Range/Units 17:21 17:21 17:21 WBC 4.0 (4.0-10.0) 10^3/uL RBC 3.42 L (4.1-5.3) 10^6/uL Hgb 11.7 (11.5-15.3) g/dL Hct 35.3 L (37.0-47.0) % MCV 103.2 H (81-99) fL MCH 34.2 H (28.0-34.0) pg MCHC 33.1 (30.0-36.0) g/dL RDW 14.2 (12.1-15.1) % Plt Count 138 (130-400) 10^3/cmm MPV 10.4 (7.4-10.4) fL Neut % (Auto) 66.4 % Lymph % (Auto) 24.5 % [place] % (Auto) 7.7 % Eos % (Auto) 0.2 % Baso % (Auto) 0.2 % Neut # (Auto) 2.68 (1.8-7.7) 10^3/uL Lymph # (Auto) 1.0 (0.8-4.8) 10^3/uL [place] # (Auto) 0.3 (0.2-0.9) 10^3/uL Eos # (Auto) 0.0 (0.0-0.8) 10^3/uL Baso # (Auto) 0.0 (0.0-0.1) 10^3/uL Nucleated RBC % (auto) 0 % Nucleated RBCs # 0.0 /100WBC Fibrinogen 443 (174-498) mg/dL Sodium 136 (136-145) mmol/L Potassium 3.5 (3.5-5.1) mmol/L Chloride 101 (98-107) mmol/L Carbon Dioxide 23 (22-29) mmol/L Anion Gap 15.5 (5-19) BUN 19 (8-23) mg/dL Creatinine 1.6 H (0.5-0.9) mg/dL GFR Calculation Not Reportable Glucose 69 (65-115) mg/dL Calculated Osmolality 283 L (285-295) mOsm/kg Lactic Acid (0.5-2.2) mmol/L Calcium 8.4 L (8.5-10.5) mg/dL Total Bilirubin 0.6 (0.15-1.2) mg/dL AST 68 H (0-32) U/L ALT 23 (0-33) U/L Alkaline Phosphatase 80 (35-105) IU/L C-Reactive Protein 41.3 H (0.0-4.9) mg/L NT-Pro-B Natriuret Pep 7690 H (0-450) pg/mL Total Protein 7.2 (6.6-8.7) g/dL Albumin 3.1 L (3.5-5.2) g/dL Globulin 4.1 (1.3-4.6) g/dL SARS-CoV-2 Ag (Rapid) (Negative) 07/10/20 07/10/20 Range/Units 17:21 18:02 WBC (4.0-10.0) 10^3/uL RBC (4.1-5.3) 10^6/uL Hgb (11.5-15.3) g/dL Hct (37.0-47.0) % MCV (81-99) fL MCH (28.0-34.0) pg MCHC (30.0-36.0) g/dL RDW (12.1-15.1) % Plt Count (130-400) 10^3/cmm MPV (7.4-10.4) fL Neut % (Auto) % Lymph % (Auto) % [place] % (Auto) % Eos % (Auto) % Baso % (Auto) % Neut # (Auto) (1.8-7.7) 10^3/uL Lymph # (Auto) (0.8-4.8) 10^3/uL [place] # (Auto) (0.2-0.9) 10^3/uL Eos # (Auto) (0.0-0.8) 10^3/uL Baso # (Auto) (0.0-0.1) 10^3/uL Nucleated RBC % (auto) % Nucleated RBCs # /100WBC Fibrinogen (174-498) mg/dL Sodium (136-145) mmol/L Potassium (3.5-5.1) mmol/L Chloride (98-107) mmol/L Carbon Dioxide (22-29) mmol/L Anion Gap (5-19) BUN (8-23) mg/dL Creatinine (0.5-0.9) mg/dL GFR Calculation Glucose (65-115) mg/dL Calculated Osmolality (285-295) mOsm/kg Lactic Acid 1.8 (0.5-2.2) mmol/L Calcium (8.5-10.5) mg/dL Total Bilirubin (0.15-1.2) mg/dL AST (0-32) U/L ALT (0-33) U/L Alkaline Phosphatase (35-105) IU/L C-Reactive Protein (0.0-4.9) mg/L NT-Pro-B Natriuret Pep (0-450) pg/mL Total Protein (6.6-8.7) g/dL Albumin (3.5-5.2) g/dL Globulin (1.3-4.6) g/dL SARS-CoV-2 Ag (Rapid) Positive H (Negative) COVID Results: SARS-CoV-2 Antigen (Rapid) Positive (Negative) H 07/10/20 18:02 07/10/20 Imaging Data CXR: Radiologist's impression: [address] [address] XRay Report Signed Patient: Ying Valdez Unit #: [id number] : 1945 Age/Sex: 75 / F ADM Date: 07/10/20 Loc: ER Room/Bed: Attending Dr: Ordering Provider/Ordering MD: Raoul Hayward MD Date of Service: 07/10/20 Procedure(s): XR chest 1V portable [id number] Accession Number(s): [id number] Report Number: [id number] PROCEDURE INFORMATION: Exam: XR Chest, 1 View Exam date and time: 07/10/2020 4:57 PM Age: 75 years old Clinical indication: Cough and other: Chills; Prior surgery; Surgery type: Heart; Additional info: SOB TECHNIQUE: Imaging protocol: XR of the chest Views: 1 view. COMPARISON: CR XR chest 1V portable [id number] 07/03/2020 4:43 AM; 01/02/2020 FINDINGS: Lungs: Mild ground-glass interstitial lung disease left lung base which could reflect active interstitial pneumonitis. Evidence of mild COPD/chronic bronchitis. Moderately advanced senile fibrosis. Pleural space: Unremarkable. No pleural effusion. No pneumothorax. Heart/Mediastinum: Status post sternotomy chest and CABG. Cardiomegaly. Arteriosclerosis. Bones/joints: Unremarkable for age. XR/XR chest 1V portable [id number] IMPRESSION: Mild ground-glass interstitial lung disease left lung base which could reflect active interstitial pneumonitis. Discharge Plan Discharge Patient Disposition: Home Clinical Impression: COVID-19 Condition: Stable Prescriptions: New albuterol sulfate 90 mcg/actuation HFA aerosol inhaler 2 inh INHALATION Q6H PRN (Reason: shortness of breath or wheezing) Qty: 8 RF: 0 Keflex 500 mg capsule 500 mg PO Q6H 7 Days Qty: 28 RF: 0 No Action clopidogrel [Plavix] 75 mg tablet 75 mg PO DAILY RF: 0 atorvastatin 20 mg tablet 20 mg PO DAILY RF: 0 isosorbide mononitrate 120 mg tablet extended release 24 hr 120 mg PO DAILY RF: 0 levothyroxine 125 mcg capsule 125 mcg PO DAILY RF: 0 pantoprazole [Protonix] 20 mg tablet,delayed release (DR/EC) 20 mg PO DAILY RF: 0 Bystolic 2.5 mg tablet 2.5 mg PO DAILY RF: 0 insulin NPH-regular hum s-syn 100 unit/mL (70-30) cartridge See Rx Instructions .ROUTE .COMPLEX RF: 0 aspirin [Adult Aspirin Regimen] 81 mg tablet,delayed release (DR/EC) 81 mg PO DAILY RF: 0 furosemide 40 mg tablet 40 mg PO BID PRN (Reason: weight gain) Qty: 180 RF: 3 potassium chloride 20 mEq tablet extended release 20 meq PO DAILY Qty: 90 RF: 3 ferrous sulfate 325 mg (65 mg iron) Tablet 650 mg PO DAILY RF: 0 glimepiride 4 mg Tablet 2 mg PO DAILY RF: 0 Tylenol 325 mg Tablet 325 mg PO QID PRN (Reason: Pain) RF: 0 Discharge Orders: Discharge Order (Routine); Ordered 07/10/20 Ordered By: Raoul Hayward Referrals: Jett Chaney DO [Primary Care Provider] - Discharge Diet: Advance as tolerated Discharge Activity: Resume usual activity Patient Instructions: Upper Respiratory Infection (ED) Coding Level of Care Code ED Gyn for Bhavanag Adonis
[2020-07-10 18:02] LABS: Alanine Aminotransferase 23 U/L (0-33); Albumin Level 3.1 g/dL (3.5-5.2); Alkaline Phosphatase 80 IU/L (35-105); Anion Gap 15.5 (5-19); Aspartate Amino Transferase 68 U/L (0-32); Blood Urea Nitrogen 19 mg/dL (8-23); C Reactive Protein 41.3 mg/L (0.0-4.9); Calcium 8.4 mg/dL (8.5-10.5); Carbon Dioxide 23 mmol/L (22-29); Chloride 101 mmol/L (98-107); Globulin 4.1 g/dL (1.3-4.6); Glucose 69 mg/dL (65-115); NT Pro B Type Natriuretic Pept 7690 pg/mL (0-450); Osmolality Calculated 283 mOsm/kg (285-295); Potassium 3.5 mmol/L (3.5-5.1); Sodium 136 mmol/L (136-145); Total Bilirubin 0.6 mg/dL (0.15-1.2); Total Protein 7.2 g/dL (6.6-8.7)
[2020-07-10 18:10] VITALS: BP 139/61; PULSE 72; RESP 18; O2SAT 90
[2020-07-10 18:46] LABS: SARS Covid-2 Antigen Positive (Negative)
[2020-07-10] MEDS: dexamethasone 4 mg/mL INJ 8 MG IVP (19:38)
[2020-07-10 19:42] VITALS: PULSE 86; RESP 17; O2SAT 95
== END 2020-07-10 19:43 | disposition home or self-care (01) ==
PROVIDERS: Emergency Provider Emergency Medicine; PCP Family Medicine
DX: U07.1 COVID-19 (principal); I25.10 Atherosclerotic heart disease of native coronary artery without angina pectoris; I35.0 Nonrheumatic aortic (valve) stenosis; Z95.1 Presence of aortocoronary bypass graft; Z79.82 Long term (current) use of aspirin; Z79.4 Long term (current) use of insulin; J12.89 Other viral pneumonia; Z79.02 Long term (current) use of antithrombotics/antiplatelets; N18.9 Chronic kidney disease, unspecified
CPT/HCPCS: 12345; 71045; 80053; 83605; 83880; 85025; 85384; 86140; 87426; 96374; 96375; 99283; J1100

== ENCOUNTER 2020-07-12 09:56 | Inpatient (IN) | payer MEDICARE, SELFPAY ==
[2020-07-12] VITALS (16 sets, daily range): BP systolic 127–168; BP diastolic 61–84; PULSE 50–82; RESP 16–26; TEMP 36.4; O2SAT 88–96; BMI 23.3
--- NOTE | 2020-07-12 10:16 | ECG_ITS ---
[facility] Test Date: 2020-07-12 Pat Name: Ying Valdez Department: Room: Gender: Female Drier And Grinder Tender: : 1945 Requested By: Phyllis Cueva Order Number: [id number] Fernanda MD: Anthony Roberts M.D. Measurements Intervals [place] Rate: 63 P: DC: -1 QRS: 127 QRSD: 147 T: -40 QT: 515 QTc: 529 Interpretive Statements ATRIAL FIBRILLATION RIGHT BUNDLE BRANCH BLOCK [120+ ms QRS DURATION, UPRIGHT V1, 40+ ms S IN I/aVL/V4/V5/V6] LEFT POSTERIOR FASCICULAR BLOCK [QRS AXIS > 109, INFERIOR Q] ST DEVIATION AND MODERATE T-WAVE ABNORMALITY, CONSIDER LATERAL ISCHEMIA [-0.1+ mV T WAVE IN I/aVL/V5/V6] Compared to ECG 07/03/2020 06:14:18 T-wave abnormality now present Possible ischemia now present ST (T wave) deviation no longer present Electronically Signed On 07-12-2020 19:52:17 EMAIL DEPLOYMENT SPECIALIST by nAthony Roberts M.D. [id number]
--- NOTE | 2020-07-12 10:16 | XR_ITS ---
WS: [id number] Portable AP upright chest, 07/12/2020 Clinical Data: sob Comparison: Portable chest, 07/10/2020. Findings: The bilateral lung opacities remain unchanged. The heart is enlarged. The aortic arch and d escending aorta show calcification and tortuosity. Midline sternotomy sutures are present. There are monitor leads on the chest wall. XR/XR chest 1V portable [id number] Impression: No change from chest x-ray of 2 days ago.
[2020-07-12 10:39] LABS: ABG PCO2 28.6 mmHg (35-45); ABG PH Result 7.48 (7.35-7.45); Alveolar-Arterial Oxygen Gradi 10.7 mmHg (5-10); Arterial Blood Gas Hematocrit 32.4 % (37-47); Base Excess ABG -1.7 mmol/L (-2.0-2.0); Blood Gas Allen Test Pos; Blood Gas Operator Identificat CAK; Blood Gas Sample Site Radial, left; Blood Gas Sample Type Arterial; Carboxyhemoglobin 0.6 %THgb (0.4-20.1); HCO3 ABG 21.1 mmol/L (22-26); HGB O2 Sat 95.3 % (95-100); Ionized Calcium Level - ABG 1.1 mmol/L (1.1-1.4); Oxygen Device NC; Oxygen Saturation ABG 96.9; PO2 ABG 82.4 mmHg (80.0-100.0); Potassium Level - ABG 4.7 mmol/L (3.5-5.0); Total Hemoglobin 10.6 g/dL (12-16)
[2020-07-12] MEDS: sodium chloride 0.9% 500 ML 999 ML IV (11:30)
[2020-07-12 11:41] LABS: Basophils % 0.1 %; Hematocrit 31.8 % (37.0-47.0); Hemoglobin 10.4 g/dL (11.5-15.3); Lymphocytes # 0.7 10^3/uL (0.8-4.8); Lymphocytes % 9.1 %; Mean Corpuscular HGB Conc 32.7 g/dL (30.0-36.0); Mean Corpuscular Volume 103.9 fL (81-99); Monocytes # 0.3 10^3/uL (0.2-0.9); Neutrophils # 6.92 10^3/uL (1.8-7.7); Neutrophils % 86.4 %; Nucleated Red Blood Cells % 0 %; Platelet Count 140 10^3/cmm (130-400); Red Blood Count 3.06 10^6/uL (4.1-5.3); Red Cell Distribution Width 13.8 % (12.1-15.1)
--- NOTE | 2020-07-12 11:41 | PC.NURSE ---
Patients daughter states patient also has had increased confusion over the past few days
[2020-07-12 13:28] LABS: D Dimer 3.96 ug/mIFEU (0-0.59)
[2020-07-12 13:35] LABS: Alanine Aminotransferase 24 U/L (0-33); Albumin Level 2.6 g/dL (3.5-5.2); Alkaline Phosphatase 76 IU/L (35-105); Aspartate Amino Transferase 68 U/L (0-32); Blood Urea Nitrogen 31 mg/dL (8-23); Calcium 8.1 mg/dL (8.5-10.5); Carbon Dioxide 21 mmol/L (22-29); Chloride 95 mmol/L (98-107); Glucose 380 mg/dL (65-115); Osmolality Calculated 284 mOsm/kg (285-295); Sodium 126 mmol/L (136-145); Total Bilirubin 0.4 mg/dL (0.15-1.2); Total Protein 6.6 g/dL (6.6-8.7)
[2020-07-12 13:37] LABS: Lactate Dehydrogenase 642 U/L (135-214)
[2020-07-12 13:38] LABS: Troponin(5th) Baseline 44 ng/L (0-10)
--- NOTE | 2020-07-12 13:40 | CT_ITS ---
WS: [id number] CTA OF THE CHEST WITH PULMONARY EMBOLISM PROTOCOL TECHNIQUE: High-resolution contrast enhanced CTA of the chest with coronal and sagittal reformatted i mages with pulmonary embolism protocol. MIP images are also reviewed. CLINICAL INFORMATION: sob covid COMPARISON: None. DLP: 478.[address] scans at [facility] use at least one of these dose optimization techniques: automat ed exposure control; mA and/or kV adjustment per patient size (includes targeted exams where dose is matched to clinical indication); or iterative reconstruction. FINDINGS: Proximal main pulmonary arteries are normal. Segmental and subsegmental pulmonary arteries are normal . No evidence of pulmonary embolus. Extensive diffuse groundglass infiltrates consistent with viral pneumonia. This is more prominent in a perihilar distribution. Small right pleural effusion. Prior sternotomy. Cardiomegaly. Normal caliber thoracic aorta. Aortic calcification. Reactive anterior mediastinal, per ibronchial, and subcarinal lymph nodes. Reactive hilar lymph nodes. No axillary lymphadenopathy. Small esophageal hiatal hernia. Small amount of perihepatic fluid in the upper abdomen. CT/CT angio chest PE protcl [id number] IMPRESSION: 1. Proximal main pulmonary arteries are normal. No evidence of pulmonary embol us. 2. Extensive groundglass infiltrates throughout both lungs more prominent in a perihilar distribution consistent with viral pneumonia. 3. Numerous reactive mediastinal and peribronchial lymph nodes. 4. Cardiomegaly. 5. Small esophageal hiatal hernia.
[2020-07-12] MEDS: hydrocortisone 100 mg/2 mL SDV IVP (14:58)
[2020-07-12] MEDS: diphenhydrAMINE 50 mg/mL SDV 1mL IVP (14:58)
[2020-07-12] MEDS: iodixanol 320 mg/mL 100mL Btl IV (15:12)
--- NOTE | 2020-07-12 15:56 | ED_ITS ---
Documented by User: Phyllis Cueva 07/12/20 15:57 HPI - COVID General: Chief Complaint: COVID symptoms Stated Complaint: Low O2, COVID + Time Seen by Provider: 07/12/20 09:58 Triage information: Has fever, cough or shortness of breath . 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 CHF (congestive heart failure) Chronic kidney disease COPD (chronic obstructive pulmonary disease) Diabetes mellitus GERD (gastroesophageal reflux disease) Hypertension Hypothyroidism Insulin dependent type 2 diabetes mellitus Mild pulmonary hypertension Surgical History (Updated 07/12/20 @ 18:46 by Jovan Kohler MD) H/O heart bypass surgery Hx of CABG Family History Mother Stroke Diabetes Brother Stroke Diabetes Social History Smoking and tobacco status: never smoked Alcohol intake: never Current occupational status: retired Course Vital Signs: Vital signs: Vital Signs Temperature 97.5 F L 07/12/20 10:16 Pulse Rate 74 07/12/20 19:33 Respiratory Rate 21 H 07/12/20 19:33 Blood Pressure 165/83 07/12/20 19:33 Pulse Oximetry 93 07/12/20 19:33 MDM - COVID MDM Narrative Medical decision making narrative: [address] [address] [address] Scan Report Signed Patient: Ying Valdez #: [id number] : 3Acct#:[id number] Age/Sex: 75 / FADM Date: 07/12/20 Loc: ERRoom/Bed: Attending Dr: Ordering Provider/Ordering MD: Phyllis Cueva NP Date of Service: 07/12/20 Procedure(s): CT angio chest PE protcl [id number] Accession Number(s): [id number] Report Number: [id number] WS: [id number] CTA OF THE CHEST WITH PULMONARY EMBOLISM PROTOCOL TECHNIQUE: High-resolution contrast enhanced CTA of the chest with coronal and sagittal reformatted images with pulmonary embolism protocol. MIP images are also reviewed. CLINICAL INFORMATION: sob covid COMPARISON: None. DLP: 478.[address] scans at [facility] use at least one of these dose optimization techniques: automated exposure control; mA and/or kV adjustment per patient size (includes targeted exams where dose is matched to clinical indication); or iterative reconstruction. FINDINGS: Proximal main pulmonary arteries are normal. Segmental and subsegmental pulmonary arteries are normal. No evidence of pulmonary embolus. Extensive diffuse groundglass infiltrates consistent with viral pneumonia. This is more prominent in a perihilar distribution. Small right pleural effusion. Prior sternotomy. Cardiomegaly. Normal caliber thoracic aorta. Aortic calcification. Reactive anterior mediastinal, peribronchial, and subcarinal lymph nodes. Reactive hilar lymph nodes. No axillary lymphadenopathy. Small esophageal hiatal hernia. Small amount of perihepatic fluid in the upper abdomen. CT/CT angio chest PE protcl [id number] IMPRESSION: 1. Proximal main pulmonary arteries are normal. No evidence of pulmonary embolus. 2. Extensive groundglass infiltrates throughout both lungs more prominent in a perihilar distribution consistent with viral pneumonia. 3. Numerous reactive mediastinal and peribronchial lymph nodes. 4. Cardiomegaly. 5. Small esophageal hiatal hernia. Lab Data Result diagrams: 07/12/20 11:30 07/12/20 13:00 Labs: Lab Results 07/12/20 07/12/20 07/12/20 Range/Units 10:28 11:30 11:30 WBC 8.0 (4.0-10.0) 10^3/uL RBC 3.06 L (4.1-5.3) 10^6/uL Hgb 10.4 L (11.5-15.3) g/dL Hct 31.8 L (37.0-47.0) % MCV 103.9 H (81-99) fL MCH 34.0 (28.0-34.0) pg MCHC 32.7 (30.0-36.0) g/dL RDW 13.8 (12.1-15.1) % Plt Count 140 (130-400) 10^3/cmm MPV 11.0 H (7.4-10.4) fL Neut % (Auto) 86.4 % Lymph % (Auto) 9.1 % [place] % (Auto) 4.0 % Eos % (Auto) 0.0 % Baso % (Auto) 0.1 % Neut # (Auto) 6.92 (1.8-7.7) 10^3/uL Lymph # (Auto) 0.7 L (0.8-4.8) 10^3/uL [place]ot # (Auto) 0.3 (0.2-0.9) 10^3/uL Eos # (Auto) 0.0 (0.0-0.8) 10^3/uL Baso # (Auto) 0.0 (0.0-0.1) 10^3/uL Nucleated RBC % (auto) 0 % Nucleated RBCs # 0.0 /100WBC D-Dimer Cancelled Specimen Type Arterial Sample Site Radial, left ABG pH 7.48 H (7.35-7.45) ABG pCO2 28.6 L (35-45) mmHg ABG pO2 82.4 (80.0-100.0) mmHg ABG HCO3 21.1 L (22-26) mmol/L ABG O2 Saturation 96.9 ABG Base Excess -1.7 (-2.0-2.0) mmol/L Grady Test Pos A-a O2 Gradient 10.7 H (5-10) mmHg Hematocrit 32.4 L (37-47) % Hgb O2 Saturation 95.3 (95-100) % Carboxyhemoglobin 0.6 (0.4-20.1) %THgb Methemoglobin 1.0 (0.4-1.5) % Total Hemoglobin 10.6 L (12-16) g/dL Sodium 128.0 L (131-143) mmol/L Potassium 4.7 (3.5-5.0) mmol/L Glucose 402.0 H (70-115) mg/dL Ionized Calcium 1.1 (1.1-1.4) mmol/L O2 Delivery Device Nc O2 Liters/Min 2.0 % FiO2 28.0 % Direct Support Professional Home Health ID Cak Chloride Carbon Dioxide Anion Gap BUN Creatinine GFR Calculation Calculated Osmolality Calcium Total Bilirubin AST ALT Alkaline Phosphatase Lactate Dehydrogenase Troponin T Gen 5 ng/L Troponin T Baseline (0-10) ng/L Total Protein Albumin Globulin 07/12/20 07/12/20 07/12/20 Range/Units 11:30 11:30 13:00 WBC (4.0-10.0) 10^3/uL RBC (4.1-5.3) 10^6/uL Hgb (11.5-15.3) g/dL Hct (37.0-47.0) % MCV (81-99) fL MCH (28.0-34.0) pg MCHC (30.0-36.0) g/dL RDW (12.1-15.1) % Plt Count (130-400) 10^3/cmm MPV (7.4-10.4) fL Neut % (Auto) % Lymph % (Auto) % [place] % (Auto) % Eos % (Auto) % Baso % (Auto) % Neut # (Auto) (1.8-7.7) 10^3/uL Lymph # (Auto) (0.8-4.8) 10^3/uL [place]ot # (Auto) (0.2-0.9) 10^3/uL Eos # (Auto) (0.0-0.8) 10^3/uL Baso # (Auto) (0.0-0.1) 10^3/uL Nucleated RBC % (auto) % Nucleated RBCs # /100WBC D-Dimer 3.96 H Specimen Type Sample Site ABG pH (7.35-7.45) ABG pCO2 (35-45) mmHg ABG pO2 (80.0-100.0) mmHg ABG HCO3 (22-26) mmol/L ABG O2 Saturation ABG Base Excess (-2.0-2.0) mmol/L Grady Test A-a O2 Gradient (5-10) mmHg Hematocrit (37-47) % Hgb O2 Saturation (95-100) % Carboxyhemoglobin (0.4-20.1) %THgb Methemoglobin (0.4-1.5) % Total Hemoglobin (12-16) g/dL Sodium Cancelled (131-143) mmol/L Potassium Cancelled (3.5-5.0) mmol/L Glucose Cancelled (70-115) mg/dL Ionized Calcium (1.1-1.4) mmol/L O2 Delivery Device O2 Liters/Min % FiO2 % Direct Support Professional Home Health ID Chloride Cancelled Carbon Dioxide Cancelled Anion Gap Cancelled BUN Cancelled Creatinine Cancelled GFR Calculation Cancelled Calculated Osmolality Cancelled Calcium Cancelled Total Bilirubin Cancelled AST Cancelled ALT Cancelled Alkaline Phosphatase Cancelled Lactate Dehydrogenase Cancelled Troponin T Gen 5 ng/L Cancelled Troponin T Baseline (0-10) ng/L Total Protein Cancelled Albumin Cancelled Globulin Cancelled 07/12/20 07/12/20 07/12/20 Range/Units 13:00 13:00 16:04 WBC (4.0-10.0) 10^3/uL RBC (4.1-5.3) 10^6/uL Hgb (11.5-15.3) g/dL Hct (37.0-47.0) % MCV (81-99) fL MCH (28.0-34.0) pg MCHC (30.0-36.0) g/dL RDW (12.1-15.1) % Plt Count (130-400) 10^3/cmm MPV (7.4-10.4) fL Neut % (Auto) % Lymph % (Auto) % [place] % (Auto) % Eos % (Auto) % Baso % (Auto) % Neut # (Auto) (1.8-7.7) 10^3/uL Lymph # (Auto) (0.8-4.8) 10^3/uL [place] # (Auto) (0.2-0.9) 10^3/uL Eos # (Auto) (0.0-0.8) 10^3/uL Baso # (Auto) (0.0-0.1) 10^3/uL Nucleated RBC % (auto) % Nucleated RBCs # /100WBC D-Dimer Specimen Type Sample Site ABG pH (7.35-7.45) ABG pCO2 (35-45) mmHg ABG pO2 (80.0-100.0) mmHg ABG HCO3 (22-26) mmol/L ABG O2 Saturation ABG Base Excess (-2.0-2.0) mmol/L Grady Test A-a O2 Gradient (5-10) mmHg Hematocrit (37-47) % Hgb O2 Saturation (95-100) % Carboxyhemoglobin (0.4-20.1) %THgb Methemoglobin (0.4-1.5) % Total Hemoglobin (12-16) g/dL Sodium 126 L (131-143) mmol/L Potassium 5.0 (3.5-5.0) mmol/L Glucose 380 H (70-115) mg/dL Ionized Calcium (1.1-1.4) mmol/L O2 Delivery Device O2 Liters/Min % FiO2 % Direct Support Professional Home Health ID Chloride 95 L Carbon Dioxide 21 L Anion Gap 15.0 BUN 31 H Creatinine 1.5 H GFR Calculation Not Reportable Calculated Osmolality 284 L Calcium 8.1 L Total Bilirubin 0.4 AST 68 H ALT 24 Alkaline Phosphatase 76 Lactate Dehydrogenase 642 H Troponin T Gen 5 ng/L 42 H Troponin T Baseline 44 H (0-10) ng/L Total Protein 6.6 Albumin 2.6 L Globulin 4.0 COVID Results: SARS-CoV-2 Antigen (Rapid) Positive (Negative) H 07/10/20 18:02 07/10/20 Discharge Plan Discharge Patient Disposition: Admitted As Inpatient Admit Provider: Jovan Kohler Coding Level of Care Code ED Advertising Agency Manager for Chg Fwd Exam Comprehensive Documented by User: ELIZABETH Hayes 07/12/20 17:48 HPI - COVID General: Chief Complaint: COVID symptoms Stated Complaint: Low O2, COVID + Time Seen by Provider: 07/12/20 09:58 COVID Results: SARS-CoV-2 Antigen (Rapid) Positive (Negative) H 07/10/20 18:02 07/10/20 PFS ED PFSH: Medical History (Updated 07/12/20 @ 18:51 by Jovan Kohler MD) Aortic stenosis CAD (coronary artery disease) 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 CHF (congestive heart failure) Chronic kidney disease COPD (chronic obstructive pulmonary disease) Diabetes mellitus GERD (gastroesophageal reflux disease) Hypertension Hypothyroidism Insulin dependent type 2 diabetes mellitus Mild pulmonary hypertension Surgical History (Updated 07/12/20 @ 18:46 by Jovan Kohler MD) H/O heart bypass surgery Hx of CABG Family History Mother Stroke Diabetes Brother Stroke Diabetes Social History Smoking and tobacco status: never smoked Alcohol intake: never Current occupational status: retired Course ED course: 1699, received patient from Phyllis Cueva, nurse practitioner. Awaiting oxygen evaluation. Patient resting well. Consideration for admission or discharged home with oxygen. [id number], discussed patient with Dr. Hayward who agreed that patient needed admission to hospital. Dr. Hayward assumed care in order to achieve admission and transfer. Patient was notified and agreed to treatment plan. Vital Signs: Vital signs: Vital Signs Temperature 97.5 F L 07/12/20 10:16 Pulse Rate 74 07/12/20 19:33 Respiratory Rate 21 H 07/12/20 19:33 Blood Pressure 165/83 07/12/20 19:33 Pulse Oximetry 93 07/12/20 19:33 MDM - COVID Lab Data Result diagrams: 07/12/20 11:30 07/12/20 13:00 Labs: Lab Results 07/12/20 07/12/20 07/12/20 Range/Units 10:28 11:30 11:30 WBC 8.0 (4.0-10.0) 10^3/uL RBC 3.06 L (4.1-5.3) 10^6/uL Hgb 10.4 L (11.5-15.3) g/dL Hct 31.8 L (37.0-47.0) % MCV 103.9 H (81-99) fL MCH 34.0 (28.0-34.0) pg MCHC 32.7 (30.0-36.0) g/dL RDW 13.8 (12.1-15.1) % Plt Count 140 (130-400) 10^3/cmm MPV 11.0 H (7.4-10.4) fL Neut % (Auto) 86.4 % Lymph % (Auto) 9.1 % [place] % (Auto) 4.0 % Eos % (Auto) 0.0 % Baso % (Auto) 0.1 % Neut # (Auto) 6.92 (1.8-7.7) 10^3/uL Lymph # (Auto) 0.7 L (0.8-4.8) 10^3/uL [place] # (Auto) 0.3 (0.2-0.9) 10^3/uL Eos # (Auto) 0.0 (0.0-0.8) 10^3/uL Baso # (Auto) 0.0 (0.0-0.1) 10^3/uL Nucleated RBC % (auto) 0 % Nucleated RBCs # 0.0 /100WBC D-Dimer Cancelled Specimen Type Arterial Sample Site Radial, left ABG pH 7.48 H (7.35-7.45) ABG pCO2 28.6 L (35-45) mmHg ABG pO2 82.4 (80.0-100.0) mmHg ABG HCO3 21.1 L (22-26) mmol/L ABG O2 Saturation 96.9 ABG Base Excess -1.7 (-2.0-2.0) mmol/L Grady Test Pos A-a O2 Gradient 10.7 H (5-10) mmHg Hematocrit 32.4 L (37-47) % Hgb O2 Saturation 95.3 (95-100) % Carboxyhemoglobin 0.6 (0.4-20.1) %THgb Methemoglobin 1.0 (0.4-1.5) % Total Hemoglobin 10.6 L (12-16) g/dL Sodium 128.0 L (131-143) mmol/L Potassium 4.7 (3.5-5.0) mmol/L Glucose 402.0 H (70-115) mg/dL Ionized Calcium 1.1 (1.1-1.4) mmol/L O2 Delivery Device Nc O2 Liters/Min 2.0 % FiO2 28.0 % Direct Support Professional Home Health ID Cak Chloride Carbon Dioxide Anion Gap BUN Creatinine GFR Calculation Calculated Osmolality Calcium Total Bilirubin AST ALT Alkaline Phosphatase Lactate Dehydrogenase Troponin T Gen 5 ng/L Troponin T Baseline (0-10) ng/L Total Protein Albumin Globulin 07/12/20 07/12/20 07/12/20 Range/Units 11:30 11:30 13:00 WBC (4.0-10.0) 10^3/uL RBC (4.1-5.3) 10^6/uL Hgb (11.5-15.3) g/dL Hct (37.0-47.0) % MCV (81-99) fL MCH (28.0-34.0) pg MCHC (30.0-36.0) g/dL RDW (12.1-15.1) % Plt Count (130-400) 10^3/cmm MPV (7.4-10.4) fL Neut % (Auto) % Lymph % (Auto) % [place] % (Auto) % Eos % (Auto) % Baso % (Auto) % Neut # (Auto) (1.8-7.7) 10^3/uL Lymph # (Auto) (0.8-4.8) 10^3/uL [place] # (Auto) (0.2-0.9) 10^3/uL Eos # (Auto) (0.0-0.8) 10^3/uL Baso # (Auto) (0.0-0.1) 10^3/uL Nucleated RBC % (auto) % Nucleated RBCs # /100WBC D-Dimer 3.96 H Specimen Type Sample Site ABG pH (7.35-7.45) ABG pCO2 (35-45) mmHg ABG pO2 (80.0-100.0) mmHg ABG HCO3 (22-26) mmol/L ABG O2 Saturation ABG Base Excess (-2.0-2.0) mmol/L Grady Test A-a O2 Gradient (5-10) mmHg Hematocrit (37-47) % Hgb O2 Saturation (95-100) % Carboxyhemoglobin (0.4-20.1) %THgb Methemoglobin (0.4-1.5) % Total Hemoglobin (12-16) g/dL Sodium Cancelled (131-143) mmol/L Potassium Cancelled (3.5-5.0) mmol/L Glucose Cancelled (70-115) mg/dL Ionized Calcium (1.1-1.4) mmol/L O2 Delivery Device O2 Liters/Min % FiO2 % Direct Support Professional Home Health ID Chloride Cancelled Carbon Dioxide Cancelled Anion Gap Cancelled BUN Cancelled Creatinine Cancelled GFR Calculation Cancelled Calculated Osmolality Cancelled Calcium Cancelled Total Bilirubin Cancelled AST Cancelled ALT Cancelled Alkaline Phosphatase Cancelled Lactate Dehydrogenase Cancelled Troponin T Gen 5 ng/L Cancelled Troponin T Baseline (0-10) ng/L Total Protein Cancelled Albumin Cancelled Globulin Cancelled 07/12/20 07/12/20 07/12/20 Range/Units 13:00 13:00 16:04 WBC (4.0-10.0) 10^3/uL RBC (4.1-5.3) 10^6/uL Hgb (11.5-15.3) g/dL Hct (37.0-47.0) % MCV (81-99) fL MCH (28.0-34.0) pg MCHC (30.0-36.0) g/dL RDW (12.1-15.1) % Plt Count (130-400) 10^3/cmm MPV (7.4-10.4) fL Neut % (Auto) % Lymph % (Auto) % [place] % (Auto) % Eos % (Auto) % Baso % (Auto) % Neut # (Auto) (1.8-7.7) 10^3/uL Lymph # (Auto) (0.8-4.8) 10^3/uL [place] # (Auto) (0.2-0.9) 10^3/uL Eos # (Auto) (0.0-0.8) 10^3/uL Baso # (Auto) (0.0-0.1) 10^3/uL Nucleated RBC % (auto) % Nucleated RBCs # /100WBC D-Dimer Specimen Type Sample Site ABG pH (7.35-7.45) ABG pCO2 (35-45) mmHg ABG pO2 (80.0-100.0) mmHg ABG HCO3 (22-26) mmol/L ABG O2 Saturation ABG Base Excess (-2.0-2.0) mmol/L Grady Test A-a O2 Gradient (5-10) mmHg Hematocrit (37-47) % Hgb O2 Saturation (95-100) % Carboxyhemoglobin (0.4-20.1) %THgb Methemoglobin (0.4-1.5) % Total Hemoglobin (12-16) g/dL Sodium 126 L (131-143) mmol/L Potassium 5.0 (3.5-5.0) mmol/L Glucose 380 H (70-115) mg/dL Ionized Calcium (1.1-1.4) mmol/L O2 Delivery Device O2 Liters/Min % FiO2 % Direct Support Professional Home Health ID Chloride 95 L Carbon Dioxide 21 L Anion Gap 15.0 BUN 31 H Creatinine 1.5 H GFR Calculation Not Reportable Calculated Osmolality 284 L Calcium 8.1 L Total Bilirubin 0.4 AST 68 H ALT 24 Alkaline Phosphatase 76 Lactate Dehydrogenase 642 H Troponin T Gen 5 ng/L 42 H Troponin T Baseline 44 H (0-10) ng/L Total Protein 6.6 Albumin 2.6 L Globulin 4.0 COVID Results: SARS-CoV-2 Antigen (Rapid) Positive (Negative) H 07/10/20 18:02 07/10/20 Discharge Plan Discharge Patient Disposition: Admitted As Inpatient Admit Provider: Jovan Kohler Coding Level of Care Code ED Advertising Agency Manager for Chg Fwd Exam Comprehensive Documented by User: Raoul Hayward MD 07/12/20 19:34 HPI - COVID General: Chief Complaint: COVID symptoms Stated Complaint: Low O2, COVID + Time Seen by Provider: 07/12/20 09:58 Source: patient Limitations: no limitations History of Present Illness: HPI Narrative: 75-year-old female who has a history of COPD along with CHF. She states she has been having shortness of breath along with cough and fever over the last 7 days. She tested positive for Covid 2 days ago. Patient denies any fever. She denies any worsening improving factors. She denies any vomiting. Patient was diagnosed here 2 days ago and was not requiring any oxygen at that time. She said increasing shortness of breath and is now on 2 to 3 L. Denies any vomiting or diarrhea. COVID 19 common symptoms: positive non-productive cough and dyspnea; negative fever(s), chills, body aches, headache(s), throat pain, nausea, vomiting or diarrhea COVID 19 other sytmptoms: negative chest pain COVID Results: SARS-CoV-2 Antigen (Rapid) Positive (Negative) H 07/10/20 18:02 07/10/20 Review of Systems Const: Denies: fever(s), chills, body aches or change in appetite Eyes: Denies: blurry vision or eye discomfort ENMT: Denies: throat pain or dental pain Card: Denies: chest pain Resp: Reports: dyspnea and non-productive cough GI: Denies: abdominal pain, nausea, vomiting or diarrhea : Denies: dysuria Musc: Denies: neck pain or back pain Skin/Breast: Denies: rash Neuro: Denies: headache(s) Psych: Denies: depression Cristian/Lymph: Denies: easy bruising All/Imm: Denies: urticaria PFSH ED PFSH: Medical History (Updated 07/12/20 @ 18:51 by Jovan Kohler MD) Aortic stenosis CAD (coronary artery disease) 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 CHF (congestive heart failure) Chronic kidney disease COPD (chronic obstructive pulmonary disease) Diabetes mellitus GERD (gastroesophageal reflux disease) Hypertension Hypothyroidism Insulin dependent type 2 diabetes mellitus Mild pulmonary hypertension Surgical History (Updated 07/12/20 @ 18:46 by Jovan Kohler MD) H/O heart bypass surgery Hx of CABG Family History Mother Stroke Diabetes Brother Stroke Diabetes Social History Smoking and tobacco status: never smoked Alcohol intake: never Current occupational status: retired Physical Exam Const: COMMON NORMALS: patient oriented x3 GENERAL APPEARANCE: in distress and ill appearing HENMT: COMMON NORMALS: normocephalic and atraumatic HEAD & SCALP: normocephalic and atraumatic Eye: COMMON NORMALS: Equal, round and reactive pupils present and EOMs intact bilaterally PUPIL: Yes Equal, round and reactive pupils present Neck/C-Spine: COMMON NORMALS: full ROM and supple Chest: COMMONS NORMALS: normal inspection of the chest and normal palpation of entire chest wall Resp: COMMON NORMALS: No retractions EFFORT & INSPECTION: Yes respiratory distress AUSCULTATION: rales and wheezes Cardio: COMMON NORMALS: regular rate, regular rhythm and No murmurs present (Cardio) RATE: regular rate RHYTHM: regular rhythm GI: COMMON NORMALS: Normal to inspection, nondistended, normoactive bowel sounds present, Soft to palpation, non-tender and no masses PALPATION: Yes Soft to palpation Extremity: COMMON NORMALS: normal to inspection and full ROM Neuro: COMMON NORMALS: patient oriented x3, moves all extremities and no focal motor deficits Psych: COMMON NORMALS: mental status grossly normal, Normal thought process present and cooperative THOUGHT PROCESS: Normal thought process present Skin: COMMON NORMALS: no rashes or lesions noted and no wounds GENERAL SKIN EXAM: no rashes or lesions noted Course Vital Signs: Vital signs: Vital Signs Temperature 97.5 F L 07/12/20 10:16 Pulse Rate 74 07/12/20 19:33 Respiratory Rate 21 H 07/12/20 19:33 Blood Pressure 165/83 07/12/20 19:33 Pulse Oximetry 93 07/12/20 19:33 MDM - COVID MDM Narrative Medical decision making narrative: Patient presents here with Covid pneumonia. Patient has multiple risk factors and is requiring [address] does show patchy infiltrates well. Patient seen by hospitalist Dr. Florence and will admit to [facility] under Covid precautions. She has been stable while here. Lab Data Result diagrams: 07/12/20 11:30 07/12/20 13:00 Labs: Lab Results 07/12/20 07/12/20 07/12/20 Range/Units 10:28 11:30 11:30 WBC 8.0 (4.0-10.0) 10^3/uL RBC 3.06 L (4.1-5.3) 10^6/uL Hgb 10.4 L (11.5-15.3) g/dL Hct 31.8 L (37.0-47.0) % MCV 103.9 H (81-99) fL MCH 34.0 (28.0-34.0) pg MCHC 32.7 (30.0-36.0) g/dL RDW 13.8 (12.1-15.1) % Plt Count 140 (130-400) 10^3/cmm MPV 11.0 H (7.4-10.4) fL Neut % (Auto) 86.4 % Lymph % (Auto) 9.1 % [place] % (Auto) 4.0 % Eos % (Auto) 0.0 % Baso % (Auto) 0.1 % Neut # (Auto) 6.92 (1.8-7.7) 10^3/uL Lymph # (Auto) 0.7 L (0.8-4.8) 10^3/uL [place] # (Auto) 0.3 (0.2-0.9) 10^3/uL Eos # (Auto) 0.0 (0.0-0.8) 10^3/uL Baso # (Auto) 0.0 (0.0-0.1) 10^3/uL Nucleated RBC % (auto) 0 % Nucleated RBCs # 0.0 /100WBC D-Dimer Cancelled Specimen Type Arterial Sample Site Radial, left ABG pH 7.48 H (7.35-7.45) ABG pCO2 28.6 L (35-45) mmHg ABG pO2 82.4 (80.0-100.0) mmHg ABG HCO3 21.1 L (22-26) mmol/L ABG O2 Saturation 96.9 ABG Base Excess -1.7 (-2.0-2.0) mmol/L Grady Test Pos A-a O2 Gradient 10.7 H (5-10) mmHg Hematocrit 32.4 L (37-47) % Hgb O2 Saturation 95.3 (95-100) % Carboxyhemoglobin 0.6 (0.4-20.1) %THgb Methemoglobin 1.0 (0.4-1.5) % Total Hemoglobin 10.6 L (12-16) g/dL Sodium 128.0 L (131-143) mmol/L Potassium 4.7 (3.5-5.0) mmol/L Glucose 402.0 H (70-115) mg/dL Ionized Calcium 1.1 (1.1-1.4) mmol/L O2 Delivery Device Nc O2 Liters/Min 2.0 % FiO2 28.0 % Direct Support Professional Home Health ID Cak Chloride Carbon Dioxide Anion Gap BUN Creatinine GFR Calculation Calculated Osmolality Calcium Total Bilirubin AST ALT Alkaline Phosphatase Lactate Dehydrogenase Troponin T Gen 5 ng/L Troponin T Baseline (0-10) ng/L Total Protein Albumin Globulin 07/12/20 07/12/20 07/12/20 Range/Units 11:30 11:30 13:00 WBC (4.0-10.0) 10^3/uL RBC (4.1-5.3) 10^6/uL Hgb (11.5-15.3) g/dL Hct (37.0-47.0) % MCV (81-99) fL MCH (28.0-34.0) pg MCHC (30.0-36.0) g/dL RDW (12.1-15.1) % Plt Count (130-400) 10^3/cmm MPV (7.4-10.4) fL Neut % (Auto) % Lymph % (Auto) % [place] % (Auto) % Eos % (Auto) % Baso % (Auto) % Neut # (Auto) (1.8-7.7) 10^3/uL Lymph # (Auto) (0.8-4.8) 10^3/uL [place] # (Auto) (0.2-0.9) 10^3/uL Eos # (Auto) (0.0-0.8) 10^3/uL Baso # (Auto) (0.0-0.1) 10^3/uL Nucleated RBC % (auto) % Nucleated RBCs # /100WBC D-Dimer 3.96 H Specimen Type Sample Site ABG pH (7.35-7.45) ABG pCO2 (35-45) mmHg ABG pO2 (80.0-100.0) mmHg ABG HCO3 (22-26) mmol/L ABG O2 Saturation ABG Base Excess (-2.0-2.0) mmol/L Grady Test A-a O2 Gradient (5-10) mmHg Hematocrit (37-47) % Hgb O2 Saturation (95-100) % Carboxyhemoglobin (0.4-20.1) %THgb Methemoglobin (0.4-1.5) % Total Hemoglobin (12-16) g/dL Sodium Cancelled (131-143) mmol/L Potassium Cancelled (3.5-5.0) mmol/L Glucose Cancelled (70-115) mg/dL Ionized Calcium (1.1-1.4) mmol/L O2 Delivery Device O2 Liters/Min % FiO2 % Direct Support Professional [facility] ID Chloride Cancelled Carbon Dioxide Cancelled Anion Gap Cancelled BUN Cancelled Creatinine Cancelled GFR Calculation Cancelled Calculated Osmolality Cancelled Calcium Cancelled Total Bilirubin Cancelled AST Cancelled ALT Cancelled Alkaline Phosphatase Cancelled Lactate Dehydrogenase Cancelled Troponin T Gen 5 ng/L Cancelled Troponin T Baseline (0-10) ng/L Total Protein Cancelled Albumin Cancelled Globulin Cancelled 07/12/20 07/12/20 07/12/20 Range/Units 13:00 13:00 16:04 WBC (4.0-10.0) 10^3/uL RBC (4.1-5.3) 10^6/uL Hgb (11.5-15.3) g/dL Hct (37.0-47.0) % MCV (81-99) fL MCH (28.0-34.0) pg MCHC (30.0-36.0) g/dL RDW (12.1-15.1) % Plt Count (130-400) 10^3/cmm MPV (7.4-10.4) fL Neut % (Auto) % Lymph % (Auto) % [place] % (Auto) % Eos % (Auto) % Baso % (Auto) % Neut # (Auto) (1.8-7.7) 10^3/uL Lymph # (Auto) (0.8-4.8) 10^3/uL [place] # (Auto) (0.2-0.9) 10^3/uL Eos # (Auto) (0.0-0.8) 10^3/uL Baso # (Auto) (0.0-0.1) 10^3/uL Nucleated RBC % (auto) % Nucleated RBCs # /100WBC D-Dimer Specimen Type Sample Site ABG pH (7.35-7.45) ABG pCO2 (35-45) mmHg ABG pO2 (80.0-100.0) mmHg ABG HCO3 (22-26) mmol/L ABG O2 Saturation ABG Base Excess (-2.0-2.0) mmol/L Grady Test A-a O2 Gradient (5-10) mmHg Hematocrit (37-47) % Hgb O2 Saturation (95-100) % Carboxyhemoglobin (0.4-20.1) %THgb Methemoglobin (0.4-1.5) % Total Hemoglobin (12-16) g/dL Sodium 126 L (131-143) mmol/L Potassium 5.0 (3.5-5.0) mmol/L Glucose 380 H (70-115) mg/dL Ionized Calcium (1.1-1.4) mmol/L O2 Delivery Device O2 Liters/Min % FiO2 % Direct Support Professional [facility] ID Chloride 95 L Carbon Dioxide 21 L Anion Gap 15.0 BUN 31 H Creatinine 1.5 H GFR Calculation Not Reportable Calculated Osmolality 284 L Calcium 8.1 L Total Bilirubin 0.4 AST 68 H ALT 24 Alkaline Phosphatase 76 Lactate Dehydrogenase 642 H Troponin T Gen 5 ng/L 42 H Troponin T Baseline 44 H (0-10) ng/L Total Protein 6.6 Albumin 2.6 L Globulin 4.0 COVID Results: SARS-CoV-2 Antigen (Rapid) Positive (Negative) H 07/10/20 18:02 07/10/20 Critical Care Time Critical Care Time: Critical Care Time: Yes Total Critical Care Time: 36 Attestation: This case had a high probability of a clinically significant, sudden, or life threatening deterioration of this patient's condition which required my full and direct attention, intervention and personal management. Discharge Plan Discharge Patient Disposition: Admitted As Inpatient Admit Provider: Jovan Kohler Coding Level of Care Code ED Advertising Agency Manager for g [employer] Exam Comprehensive
[2020-07-12 16:51] LABS: Troponin T (5th) Once 42 ng/L (0-10)
--- NOTE | 2020-07-12 18:39 | PM.HP ---
Providers/Chief Complaint Primary Care Provider: Jett Chaney DO Chief Complaint: COVID + History of Present Illness Ying Valdez is a 75 year old female with a past medical history of CABG x4, CAD status post stenting x6, history of CHF, history of COPD, history of exposure to secondhand smoking, insulin-dependent type 2 diabetes mellitus, hypothyroidism, GERD, who presents to [facility] due to with 2 to 3-week history of cough, shortness of breath, fatigue, malaise, pleuritic-like chest pain, syncopal episode Patient tells me that roughly 2 weeks ago, she was getting up from a chair, when she suddenly passed out, she fell to the ground, she passed out for maybe 1 hour, it took an hour roughly to call EMS, she has a bruise over her left eye, she says she came to the emergency room, she was told she was okay she went home She also tells me for the last 2 weeks, she is has felt weak, fatigue, malaise, chills, no fevers, shortness of breath, shortness of breath with exertion, cough, poor appetite some lightheadedness and dizziness when changing position, and chest pain with coughing She tells me that she was here in the emergency room a few days ago, she tested positive for COVID-19, states she got home her symptoms persisted, however she was trying to stay home, but her daughter told her to come to the emergency room She tells me that her is admitted to the viral ICU for COVID-19 Review of Systems Const: Reports: chills, change in appetite, fatigue and malaise; Denies: fever(s) Eyes: Denies: change in vision or blurry vision ENMT: Denies: nasal congestion Card: Reports: chest pain and syncope; Denies: palpitations, irregular heart rhythm or edema Resp: Reports: dyspnea; Denies: productive cough, non-productive cough or wheezing GI: Denies: abdominal pain, nausea, vomiting, hematemesis, diarrhea, constipation, hematochezia or melena : Denies: flank pain, dysuria or urinary frequency Musc: Denies: neck pain or back pain Skin/Breast: Denies: rash Neuro: Denies: headache(s), dizziness or vertigo Psych: Denies: anxiety or depression Endo: Denies: polyuria or polydipsia Medications/Allergies Home Medications Medication Instructions Recorded Confirmed Last Taken Type potassium chloride 20 mEq 20 meq PO DAILY #90 tab 01/03/20 07/12/20 07/11/20 Rx tablet,extended release aspirin 81 mg tablet,delayed 81 mg PO DAILY 01/30/20 07/12/20 07/11/20 History release atorvastatin 20 mg tablet 20 mg PO DAILY 01/30/20 07/12/20 07/11/20 History clopidogrel 75 mg tablet 75 mg PO DAILY 01/30/20 07/12/20 07/11/20 History isosorbide mononitrate 120 mg 120 mg PO DAILY 01/30/20 07/12/20 07/11/20 History tablet,extended release 24 hr levothyroxine 125 mcg capsule 125 mcg PO DAILY 01/30/20 07/12/20 07/11/20 History nebivolol 2.5 mg tablet 2.5 mg PO DAILY 01/30/20 07/12/20 07/11/20 History pantoprazole 20 mg tablet,delayed 20 mg PO DAILY 01/30/20 07/12/20 07/11/20 History release ferrous sulfate 650 mg PO DAILY 07/03/20 07/12/20 07/11/20 History glimepiride 2 mg PO DAILY 07/03/20 07/12/20 07/10/20 History acetaminophen [Tylenol] 325 mg PO QID PRN 07/10/20 07/12/20 07/09/20 History albuterol sulfate 2 inh INHALATION Q6H PRN #8 gm 07/10/20 07/12/20 07/12/20 Rx cephalexin [Keflex] 500 mg PO Q6H 7 Days #28 cap 07/10/20 07/12/20 Unknown Rx dicyclomine 10 mg PO BID 07/12/20 07/12/20 07/11/20 History furosemide 40 mg PO DAILY PRN 07/12/20 07/12/20 07/11/20 History insulin NPH and regular human See Rx Instructions .ROUTE .COMPLEX 07/12/20 07/12/20 07/12/20 History [Novolin 70-30 FlexPen U-100] Allergies Allergy/AdvReac Type Severity Reaction Status Date / Time GLEN Inhibitors Allergy Unknown Unknown Verified 07/10/20 15:22 codeine Allergy Unknown Unknown Verified 07/10/20 15:22 iodine Allergy Unknown Unknown Verified 07/10/20 15:22 Penicillins Allergy Unknown Unknown Verified 07/10/20 15:22 Sulfa (Sulfonamide Allergy Unknown Unknown Verified 07/10/20 15:22 Antibiotics) PFSH Acute PFSH: Medical History (Updated 07/12/20 @ 18:51 by Jovan Kohler MD) Aortic stenosis CAD (coronary artery disease) 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 CHF (congestive heart failure) Chronic kidney disease COPD (chronic obstructive pulmonary disease) Diabetes mellitus GERD (gastroesophageal reflux disease) Hypertension Hypothyroidism Insulin dependent type 2 diabetes mellitus Mild pulmonary hypertension Surgical History (Updated 07/12/20 @ 18:46 by Jovan Kohler MD) H/O heart bypass surgery Hx of CABG Family History Mother Stroke Diabetes Brother Stroke Diabetes Social History Smoking and tobacco status: never smoked Alcohol intake: never Current occupational status: retired Vitals/I&O/Wt Last Vital Signs Temp 97.5 F L 07/12/20 10:16 Pulse 79 07/12/20 17:00 Resp 20 H 07/12/20 17:00 BP 157/61 07/12/20 14:30 Pulse Ox 88 L 07/12/20 17:12 07/12/20 07/12/20 07/12/20 06:59 14:59 22:59 Intake Total 500 / 500 Balance 500 / 500 Weight last 48 hrs Weight 63.503 kg Physical Exam Const: COMMON NORMALS: no acute distress and patient oriented x3 GENERAL APPEARANCE: cooperative and ill appearing HENMT: COMMON NORMALS: normocephalic HEAD & SCALP: normocephalic Eye: COMMON NORMALS: Equal, round and reactive pupils present and EOMs intact bilaterally GENERAL EYE: appearance normal, both eyes and all related structures PUPIL: Yes Equal, round and reactive pupils present Neck/C-Spine: COMMON NORMALS: full ROM, no lymphadenopathy, no JVD and Thyroid normal THYROID: Thyroid normal Lymph: LYMPHATIC: no lymphadenopathy noted Resp: COMMON NORMALS: normal respiratory effort, No retractions, No use of accessory muscles and clear to auscultation bilaterally AUSCULTATION: wheezes Cardio: COMMON NORMALS: no JVD, regular rate, regular rhythm, S1 normal heart sound present, S2 normal heart sound present, No gallops present (Cardio), No clicks present (Cardio) and No murmurs present (Cardio) RATE: regular rate RHYTHM: regular rhythm HEART SOUNDS: S1 normal heart sound present and S2 normal heart sound present GI: COMMON NORMALS: Normal to inspection, nondistended, normoactive bowel sounds present, Soft to palpation, non-tender and No hepatosplenomegaly present PALPATION: Yes Soft to palpation and Yes No hepatosplenomegaly present Extremity: COMMON NORMALS: normal to inspection, full ROM and no pedal edema Neuro: COMMON NORMALS: patient oriented x3, CN's II-XII intact bilaterally, moves all extremities and no focal motor deficits Psych: COMMON NORMALS: mental status grossly normal, Normal thought process present and cooperative THOUGHT PROCESS: Normal thought process present Data : 07/12/20 11:30 07/12/20 13:00 A&P Assessment and plan (1) Acute respiratory failure with hypoxia: -Risk factors include CHF, CABG, CAD, COPD, exposure to secondhand smoking -Secondary to COVID-19 pneumonia Plan: -Admit to viral ICU -Decadron 6 mg IV push daily -Remdesivir daily -Doxycycline 100 mg IV twice daily -Albuterol, Advair -Oxygen therapy -Daily EKGs -Daily inflammatory markers -Therapeutic Lovenox for DVT prophylaxis and PE prophylaxis, concern for hypercoagulability, A. fib -Protonix for GI prophylaxis -Full code Status: Acute (2) Pneumonia due to COVID-19 virus: Status: Acute (3) NSTEMI (non-ST elevated myocardial infarction): -Has complaints of pleuritic chest pain -History of CABG x4, CAB x6 -Baseline troponin pending 42 -EKG shows lateral ST depressions -Likely type II secondary to acute respiratory failure and COVID-19 -Possible myopericarditis PLAN: -Serial EKGs, serial troponins, monitor for chest pain -Aspirin, Plavix, statin, be systolic -We will order cardiac echocardiogram Status: Acute (4) Atrial fibrillation: -EKG shows A. fib, telemetry shows A. fib, rate is controlled -Echo as above -Therapeutic Lovenox -Continue the systolic -Telemetry monitoring -Likely from COVID-19 pneumonia, acute respiratory failure Status: Acute (5) Acute kidney injury: -Creatinine 1.5, secondary dehydration, hypovolemic Status: Acute (6) Hyponatremia: Hypovolemic hyponatremia -Gentle IV hydration given concern for heart failure, normal saline 75 cc an hour, monitor serum sodium Status: Acute (7) Syncope: Sounds like true syncopal episode 2 weeks ago Unsure if it is related to Covid symptoms Order cardiac echocardiogram Carotid ultrasound Repeat CT head to rule out subdural hematoma Telemetry monitoring does show A. fib events, EKG shows A. fib, lateral ST depressions Cannot rule out cardiac etiology Status: Acute (8) Dehydration: Status: Acute (9) COPD (chronic obstructive pulmonary disease): Status: Acute (10) GERD (gastroesophageal reflux disease): Status: Acute (11) Hypertension: Status: Acute (12) Hypothyroidism: Continue levothyroxine Status: Acute (13) Insulin dependent type 2 diabetes mellitus: Continue NPH, 20 units in morning, 50 units at night, low-dose sliding scale Status: Acute (14) CHF (congestive heart failure): Status: Acute (15) CAD (coronary artery disease): Status: Acute Qualifiers: Coronary Disease-Associated Artery/Lesion type: bypass graft [place] vs. transplanted heart: [place] heart Associated angina: without angina Qualified Code(s): I25.810 - Atherosclerosis of coronary artery bypass graft(s) without angina pectoris (16) Hx of CABG: Status: Acute Attestations Medical Necessity Statement*: Patient requires hospitalization, inpatient, greater than 2 midnights, COVID-19 pneumonia, acute respiratory failure, dehydration, UTI, hyponatremia, A. fib, NSTEMI Coding Level of Care Code Acute Training Program Manager for [facility] Diagnoses Acute respiratory failure with hypoxia J96.01 Pneumonia due to COVID-19 virus U07.1; J12.89 NSTEMI (non-ST elevated myocardial infarction) I21.4 Atrial fibrillation I48.91 Acute kidney injury N17.9 Hyponatremia E87.1 Syncope R55 Dehydration E86.0 COPD (chronic obstructive pulmonary disease) J44.9 GERD (gastroesophageal reflux disease) K21.9 Hypertension I10 Hypothyroidism E03.9 Insulin dependent type 2 diabetes mellitus E11.9; Z79.4 CHF (congestive heart failure) I50.9 CAD (coronary artery disease) I25.810 Coronary Disease-Associated Artery/Lesion type: bypass graft [place] vs. transplanted heart: [place] heart Associated angina: without angina Hx of CABG Z95.1
[2020-07-12] MEDS: dexamethasone 4 mg/mL INJ 10 MG IVP (19:34)
[2020-07-12] MEDS: enoxaparin 40 mg/0.4 mL Syringe SUBCUT (19:34)
--- NOTE | 2020-07-12 20:22 | CTR_ITS ---
PROCEDURE INFORMATION: Exam: CT Head Without Contrast Exam date and time: 07/12/2020 8:35 PM Age: 75 years old Clinical indication: Syncope and collapse; Additional info: Afib, syncope, stroke? TECHNIQUE: Imaging protocol: Computed tomography of the head without contrast. Radiation optimization: All CT scans at this facility use at least one of these dose optimization techniques: automated exposure control; mA and/or kV adjustment per patient size (includes targeted exams where dose is matched to clinical indication); or iterative reconstruction. COMPARISON: CT head wo con* [id number] 07/03/2020 6:57 AM RADIATION DOSE METRICS: Total DLP (mGy-cm): 851.65 FINDINGS: Brain: There is mild diffuse cerebral atrophy. Patchy areas of hypoattenuation are seen in the deep white matter of the cerebral hemispheres bilaterally compatible with deep white matter microvascular disease. Punctate hypoattenuation seen within the hypothalamus on the right appearing stable compared with 07/03/2020 compatible with a chronic lacunar infarction. Cerebral ventricles: No ventriculomegaly. Bones/joints: Unremarkable. No acute fracture. Paranasal sinuses: Visualized sinuses are unremarkable. No fluid levels. Mastoid air cells: Visualized mastoid air cells are well aerated. Soft tissues: Unremarkable. CT/CT head wo con* [id number] IMPRESSION: There are no acute intracranial findings. Radiation Dose CTDIVOL = (mGy): DLP = 851.65 (mGy-cm)
[2020-07-12] MEDS: sodium chloride 0.9% 1,000 ML 75 ML IV (20:30)
[2020-07-12 22:09] LABS: Glucose Point of Care 304 mg/dL (70-110)
[2020-07-12] MEDS: enoxaparin 60 mg/0.6 mL Syringe SUBCUT (22:33)
[2020-07-12] MEDS: doxycycline 100 MG in sodium chloride 0.9% (plus) 100 ML IV (22:33)
--- NOTE | 2020-07-12 23:50 | PC.NURSE ---
Pt taken down to CT by ABRASIVE WATER JET CUTTER OPERATOR.
[2020-07-13] VITALS (16 sets, daily range): BP systolic 138–187; BP diastolic 68–82; PULSE 59–86; RESP 16–29; TEMP 36.5–37.3; O2SAT 90–95
--- NOTE | 2020-07-13 00:35 | PC.NURSE ---
Pt back to room from CT
[2020-07-13 00:45] LABS: Glucose Point of Care 330 mg/dL (70-110)
[2020-07-13 03:26] LABS: Lactic Sepsis W/Reflex 3.2 mmol/L (0.5-2.2)
[2020-07-13 03:36] LABS: Thyroid Stimulating Hormone 2.51 uIU/mL (0.27-4.20)
[2020-07-13 04:43] LABS: Reflex Lactate Order REFLEX LACTIC ORDERD
[2020-07-13] MEDS: insulin aspart 70/30 100 units/1 mL 20 UNIT SUBCUT (06:57)
[2020-07-13 07:45] LABS: Lactic Acid level (Lactate) 4.2 mmol/L (0.5-2.2)
[2020-07-13 08:51] LABS: Glucose Point of Care 303 mg/dL (70-110)
[2020-07-13] MEDS: isosorbide mononitrate ER 60 mg Tablet 120 MG PO (08:56)
[2020-07-13] MEDS: atorvastatin 40 mg Tablet 20 MG PO (08:57)
[2020-07-13] MEDS: aspirin 81 mg EC Tablet PO (08:57)
[2020-07-13] MEDS: ascorbic acid 500 mg Tablet PO ×2 (08:57→17:44)
[2020-07-13] MEDS: clopidogrel 75 mg Tablet PO (08:58)
[2020-07-13] MEDS: pantoprazole DR 40 mg Tablet PO (08:58)
[2020-07-13] MEDS: ferrous sulfate EC 325 mg Tablet 650 MG PO (08:58)
[2020-07-13] MEDS: dexamethasone 4 mg/mL INJ 6 MG IVP (08:58)
[2020-07-13] MEDS: potassium chloride ER 20 mEq Tablet PO (08:58)
[2020-07-13] MEDS: levothyroxine 125 mcg Tablet PO (09:16)
[2020-07-13] MEDS: dicyclomine 10 mg Capsule PO ×2 (09:16→17:44)
--- NOTE | 2020-07-13 10:00 | USCV_ITS ---
Ying Valdez Age: 75 Gender: F : 1945 Exam Date: 07/13/2020 06:12 Ordering Phys: Jovan Kohler MD Technologist: China Lomeli Exam Location: [facility] [place] Indication: SOB BP: 140 / 68 HR: 80 Rhythm: Atrial fibrillation Technical Quality: Adequate MEASUREMENTS (Male / Female) Normal Values 2D ECHO LV Diastolic Diameter PLAX 3.3 cm 4.2 - 5.9 / 3.9 - 5.3 cm LV Systolic Diameter PLAX 2.4 cm LV Chamber Size 4.0 cm IVS Diastolic Thickness 1.8 cm 0.6 - 1.0 / 0.6 - 0.9 cm IVS Systolic Thickness 1.8 cm LVPW Diastolic Thickness 1.1 cm 0.6 - 1.0 / 0.6 - 0.9 cm LVPW Systolic Thickness 1.1 cm RV Chamber Size 3.1 cm LVOT Diameter 1.9 cm LV Ejection Fraction 2D Teich 51.4 % LV Ejection Fraction MOD 2C 59.6 % LV Ejection Fraction 2C AL 62.0 % LA Diameter 4.6 cm LA Width 3.7 cm LA Height 5.6 cm RA Width 3.5 cm RA Height 5.3 cm Aorta at Sinotubular Diameter 2.5 cm M-MODE LV Diastolic Diameter MM 4.2 cm 4.2 - 5.9 / 3.9 - 5.3 cm LV Systolic Diameter MM 2.9 cm LV Ejection Fraction MM Teich 59.4 % IVS Diastolic Thickness MM 1.4 cm 0.6 - 1.0 / 0.6 - 0.9 cm IVS Systolic Thickness MM 1.8 cm LVPW Diastolic Thickness MM 1.0 cm 0.6 - 1.0 / 0.6 - 0.9 cm LVPW Systolic Thickness MM 1.3 cm RV Diastolic Diameter MM 1.8 cm Aortic Annulus Diameter 2.6 cm LA Ao Ratio MM 1.8 MV E Point Septal Separation 0.6 cm DOPPLER AV Peak Velocity 156.0 cm/s LVOT Peak Velocity 74.0 cm/s AV Area Cont Eq vti 1.3 cm squared AV Area Cont Eq pk 1.3 cm squared MV Peak Velocity 132.0 cm/s MV Area PHT 5.0 cm squared Mitral E to A Ratio 2.8 MV E' Velocity 69.0 cm/s Mitral E to MV E' Ratio 23.8 Mitral E to LV E' Lateral Ratio 19.2 Mitral E to LV E' Septal Ratio 31.1 TR Peak Velocity 385.0 cm/s TR Peak Gradient 59.3 mmHg TR Mean Velocity 232.2 cm/s TR Mean Gradient 22.5 mmHg TR Velocity Time Integral 106.4 cm TV Peak E Velocity 52.0 cm/s Right Atrial Pressure 8.0 mmHg Pulmonary Artery Systolic Pressu 67.3 mmHg PV Peak Velocity 70.0 cm/s RV Acceleration Time 0.0 s RV Ejection Time 0.3 s RV AcT/ET 0.1 FINDINGS Left Ventricle Normal LV size with a slightly diminished action fraction of around 50%. Mild diffuse hypokinesia of the septum and the basal inferior wall segments.Grade III/IV diastolic dysfunction (restrictive filling pattern), severely elevated filling pressures. Right Ventricle Normal right ventricular systolic function. Right Atrium Mildly increased right atrial size. Left Atrium Moderately increased left atrial size. Mitral Valve Moderate mitral valve regurgitation. Aortic Valve Thickened aortic valve. Tricuspid Valve Moderate tricuspid valve regurgitation. Pulmonic Valve Mild pulmonary valve regurgitation. Moderate pulmonary hypertension with estimated pulmonary artery peak systolic pressure of 67 mmHg Pericardium No significant pericardial effusion Aorta Normal ascending aorta dimension. CONCLUSIONS Normal LV size with a slightly diminished action fraction of around 50%. Mild diffuse hypokinesia of the septum and the basal inferior wall segments.Grade III/IV diastolic dysfunction (restrictive filling pattern), severely elevated filling pressures. Moderately increased left atrial size. Mildly increased right atrial size. Moderate mitral valve regurgitation. Moderate tricuspid valve regurgitation. Mild pulmonary valve regurgitation. Moderate pulmonary hypertension with estimated pulmonary artery peak systolic pressure of 67 mmHg. No significant pericardial effusion. There are no intracardiac masses. Compared to the study from 02/07/2019, there is some worsening of the LV systolic function and development of pulmonary hypertension Dr Myrtle Wilson MD [facility] (Electronically Signed) Final Date: 13 July 2020 08:20 S
[2020-07-13 10:11] LABS: Basophils % 0.1 %; Hematocrit 33.7 % (37.0-47.0); Hemoglobin 10.9 g/dL (11.5-15.3); Lymphocytes # 0.7 10^3/uL (0.8-4.8); Lymphocytes % 8.6 %; Mean Corpuscular HGB Conc 32.3 g/dL (30.0-36.0); Mean Corpuscular Hemoglobin 34.5 pg (28.0-34.0); Mean Corpuscular Volume 106.6 fL (81-99); Mean Platelet Volume 10.8 fL (7.4-10.4); Monocytes # 0.2 10^3/uL (0.2-0.9); Monocytes % 2.4 %; Neutrophils # 6.96 10^3/uL (1.8-7.7); Neutrophils % 88.1 %; Nucleated Red Blood Cells % 0 %; Platelet Count 155 10^3/cmm (130-400); Red Blood Count 3.16 10^6/uL (4.1-5.3); Red Cell Distribution Width 14.1 % (12.1-15.1); White Blood Count 7.9 10^3/uL (4.0-10.0)
[2020-07-13 10:31] LABS: Alanine Aminotransferase 28 U/L (0-33); Albumin Level 2.8 g/dL (3.5-5.2); Alkaline Phosphatase 82 IU/L (35-105); Aspartate Amino Transferase 72 U/L (0-32); Blood Urea Nitrogen 30 mg/dL (8-23); Calcium 8.2 mg/dL (8.5-10.5); Carbon Dioxide 19 mmol/L (22-29); Chloride 102 mmol/L (98-107); Globulin 3.8 g/dL (1.3-4.6); Glucose 349 mg/dL (65-115); Magnesium 2.2 mg/dL (1.7-2.3); Osmolality Calculated 300 mOsm/kg (285-295); Phosphorus 2.6 mg/dL (2.5-4.5); Sodium 135 mmol/L (136-145); Total Bilirubin 0.5 mg/dL (0.15-1.2); Total Protein 6.6 g/dL (6.6-8.7)
[2020-07-13 11:00] LABS: Lactic Sepsis W/Reflex 4.5 mmol/L (0.5-2.2)
[2020-07-13 11:01] LABS: Anion Gap 18.6 (5-19); Potassium 4.6 mmol/L (3.5-5.1)
[2020-07-13 11:04] LABS: Reflex Lactate Order REFLEX LACTIC ORDERD
[2020-07-13 12:17] LABS: Troponin(5th) Baseline 42 ng/L (0-10)
[2020-07-13 12:28] LABS: Glucose Point of Care 310 mg/dL (70-110)
[2020-07-13] MEDS: azithromycin 500 MG in sodium chloride 0.9% 250 ML 250 MG IV (12:43)
[2020-07-13 13:31] LABS: Troponin 5 2HR 43.51 ng/L (0-10); Troponin 5 2HR Delta 1.51 ABS# (0-10)
--- NOTE | 2020-07-13 13:52 | ECG_ITS ---
[facility] Test Date: 2020-07-13 Pat Name: Ying Valdez Department: Room: 270 Gender: Female Composite Technician: : 1945 Requested By: Jovan Kohler Order Number: [id number] Fernanda MD: Myrtle Wilson M.D. Measurements Intervals [place] Rate: 63 P: AK: -1 QRS: 129 QRSD: 149 T: 186 QT: 497 QTc: 512 Interpretive Statements ATRIAL FIBRILLATION RIGHT BUNDLE BRANCH BLOCK [120+ ms QRS DURATION, UPRIGHT V1, 40+ ms S IN I/aVL/V4/V5/V6] LEFT POSTERIOR FASCICULAR BLOCK [QRS AXIS > 109, INFERIOR Q] ST DEVIATION AND MODERATE T-WAVE ABNORMALITY, CONSIDER LATERAL ISCHEMIA [-0.1+ mV T WAVE IN I/aVL/V5/V6] Compared to ECG 07/12/2020 10:43:18 No significant changes Electronically Signed On 07-13-2020 19:00:06 SECURITY SALES CONSULTANT by Myrtle Wilson M.D. [id number]
[2020-07-13 14:29] LABS: Lactic Acid level (Lactate) 4.5 mmol/L (0.5-2.2)
--- NOTE | 2020-07-13 14:49 | P.PN_ITS ---
Subjective Subjective: Interval history: This morning patient was examined, she did get up to use the bathroom according to nursing staff, she is currently on 3 to 4 L, she states that she still feels weak, fatigued, tired some shortness of breath, states that she is feeling better, no nausea, no vomiting, continues to have a poor appetite, lactic acid this morning was 4.5, hemodynamics have been stable, no tachycardia events, still on 3 to 4 L, white blood cell count 7.9, Vitals/I&O/Wt Last Vital Signs Temp 97.9 F 07/13/20 12:00 Pulse 84 07/13/20 12:00 Resp 18 07/13/20 12:00 BP 158/74 07/13/20 12:00 Pulse Ox 94 07/13/20 12:00 07/12/20 07/13/20 07/13/20 22:59 06:59 14:59 Intake Total 400 / 400 Output Total 250 / 250 380 / 630 300 / 300 Balance -250 / 250 -380 / -130 100 / 100 Weight last 48 hrs Weight 63.503 kg Physical Exam Const: COMMON NORMALS: no acute distress GENERAL APPEARANCE: ill appearing HENMT: COMMON NORMALS: normocephalic HEAD & SCALP: normocephalic Neck/C-Spine: COMMON NORMALS: no JVD Resp: COMMON NORMALS: normal respiratory effort, No retractions and No use of accessory muscles AUSCULTATION: crackles and wheezes Cardio: COMMON NORMALS: no JVD, regular rate, regular rhythm, S1 normal heart sound present and S2 normal heart sound present RATE: regular rate RHYTHM: regular rhythm HEART SOUNDS: S1 normal heart sound present and S2 normal heart sound present GI: COMMON NORMALS: Normal to inspection, nondistended, normoactive bowel sounds present, Soft to palpation, non-tender, No hepatosplenomegaly present, no masses and no bruits PALPATION: Yes Soft to palpation and Yes No hepatosplenomegaly present Extremity: COMMON NORMALS: capillary refill normal, no clubbing, cyanosis or edema, no calf tenderness and no pedal edema Psych: COMMON NORMALS: mental status grossly normal Data : 07/13/20 10:00 07/13/20 10:00 A&P Assessment and plan (1) Acute respiratory failure with hypoxia: -Risk factors include CHF, CABG, CAD, COPD, exposure to secondhand smoking -Secondary to COVID-19 pneumonia -Now with concerns with sepsis, lactic acidosis, and secondary bacterial pneumonia -Hemodynamic stable, no tachycardia events, still on 3 to 4 L, urine output 300 cc Plan: -We will move patient to viral ICU -Decadron 6 mg IV push daily -Remdesivir daily -Broaden out antibiotic coverage to vancomycin, Primaxin, azithromycin -Albuterol, Advair -Oxygen therapy -Daily EKGs -Daily inflammatory markers -Therapeutic Lovenox for DVT prophylaxis and PE prophylaxis, concern for hypercoagulability, A. fib -Protonix for GI prophylaxis -Full code Status: Acute (2) Sepsis: Status: Acute (3) Pneumonia due to COVID-19 virus: Status: Acute (4) Lactic acidosis: -Lactic acid 4.2, blood pressure 158/74, will continue to monitor Status: Acute (5) Transaminitis: Secondary to COVID-19 Status: Acute (6) NSTEMI (non-ST elevated myocardial infarction): -Has complaints of pleuritic chest pain -History of CABG x4, CAB x6 -Baseline troponin pending 42, unfortunately troponin series was not drawn, will have to redraw -EKG shows lateral ST depressions -Likely type II secondary to acute respiratory failure and COVID-19 -Echocardiogram shows an EF of 50%, grade 3 out of 4 diastolic dysfunction, mild diffuse hypokinesia of the septum and basal inferior wall segments, severely elevated filling pressures, moderately increased left atrial size, moderate mitral valve regurg, moderate mild tricuspid valve regurg, moderate pulmonary hypertension 67 mmHg -Possible myopericarditis PLAN: -Serial EKGs, serial troponins, monitor for chest pain -Aspirin, Plavix, statin, be systolic -Spoke to cardiology, no urgent need for stress testing or cardiac cath, likely will require outpatient follow-up Status: Acute (7) Atrial fibrillation: -EKG shows A. fib, telemetry shows A. fib, rate is controlled -Therapeutic Lovenox -Continue the bsystolic -Telemetry monitoring -Likely from COVID-19 pneumonia, acute respiratory failure Status: Acute (8) Acute kidney injury: -Creatinine 1.4, secondary dehydration, hypovolemic -Creatinine improving, baseline 1.4-5 Status: Acute (9) Hyponatremia: Hypovolemic hyponatremia, improved to 135 -Gentle IV hydration given concern for heart failure, stop normal saline 75 cc an hour, encourage oral intake, monitor serum sodium Status: Acute (10) Syncope: Sounds like true syncopal episode 2 weeks ago Unsure if it is related to Covid symptoms Echocardiogram as above Carotid ultrasound shows: Moderate to heavy heterogeneous plaques at the bifurcations and internal carotid arteries bilaterally, suggestive of 50 to 79% . Intimal thickening and minimal plaques in the common carotid arteries bilaterally. Elevated velocity in the left external carotid artery, may suggest hemodynamically significant stenosis -Findings are concerning for symptomatic carotids, will require a CTA of the head and neck once creatinine has stabilized CT of the head negative for acute hemorrhage, acute stroke, subdural hematoma Telemetry monitoring does show A. fib events, EKG shows A. fib, lateral ST depressions Cannot rule out cardiac etiology, continue telemetry monitoring Status: Acute (11) Dehydration: Status: Acute (12) GERD (gastroesophageal reflux disease): Status: Acute (13) Hypertension: Status: Acute (14) Hypothyroidism: Continue levothyroxine Status: Acute (15) Insulin dependent type 2 diabetes mellitus: Continue NPH, 20 units in morning, 50 units at night, low-dose sliding scale Status: Acute (16) CHF (congestive heart failure): Status: Acute (17) CAD (coronary artery disease): Status: Acute Qualifiers: Coronary Disease-Associated Artery/Lesion type: bypass graft [place] vs. transplanted heart: [place] heart Associated angina: without angina Qualified Code(s): I25.810 - Atherosclerosis of coronary artery bypass graft(s) without angina pectoris (18) Hx of CABG: Status: Acute (19) COPD (chronic obstructive pulmonary disease): Status: Acute Attestations Medical Necessity Statement*: Patient requires hospitalization for COVID-19 pneumonia, concerns for sepsis secondary to secondary bacterial pneumonia, acute kidney injury Coding Level of Care Code Acute Manufacturing Engineering Manager for [facility] Diagnoses Acute respiratory failure with hypoxia J96.01 Sepsis A41.9 Pneumonia due to COVID-19 virus U07.1; J12.89 Lactic acidosis E87.2 Transaminitis R74.01 NSTEMI (non-ST elevated myocardial infarction) I21.4 Atrial fibrillation I48.91 Acute kidney injury N17.9 Hyponatremia E87.1 Syncope R55 Dehydration E86.0 GERD (gastroesophageal reflux disease) K21.9 Hypertension I10 Hypothyroidism E03.9 Insulin dependent type 2 diabetes mellitus E11.9; Z79.4 CHF (congestive heart failure) I50.9 CAD (coronary artery disease) I25.810 Coronary Disease-Associated Artery/Lesion type: bypass graft [place] vs. transplanted heart: [place] heart Associated angina: without angina Hx of CABG Z95.1 COPD (chronic obstructive pulmonary disease) J44.9
[2020-07-13] MEDS: vancomycin 1,000 MG in sodium chloride 0.9% 250 ML 250 MG IV (15:23)
[2020-07-13 17:14] LABS: Troponin 5 6HR 45.08 ng/L (0-10); Troponin 5 6HR Delta 3.08 ng/L (0-12)
[2020-07-13] MEDS: insulin aspart 70/30 100 units/1 mL 15 UNIT SUBCUT (17:44)
--- NOTE | 2020-07-13 17:52 | ECG_ITS ---
[facility] Test Date: 2020-07-13 Pat Name: Ying Valdez Department: Room: 270 Gender: Female Director Of Community Education: : 1945 Requested By: Jovan Kohler Order Number: [id number] Fernanda MD: Myrtle Wilson M.D. Measurements Intervals [place] Rate: 65 P: [place]: -1 QRS: 125 QRSD: 153 T: 7 QT: 492 QTc: 514 Interpretive Statements ATRIAL FLUTTER/TACHYCARDIA RIGHT BUNDLE BRANCH BLOCK [120+ ms QRS DURATION, UPRIGHT V1, 40+ ms S IN I/aVL/V4/V5/V6] LEFT POSTERIOR FASCICULAR BLOCK [QRS AXIS > 109, INFERIOR Q] ST DEVIATION AND MODERATE T-WAVE ABNORMALITY, CONSIDER LATERAL ISCHEMIA [-0.1+ mV T WAVE IN I/aVL/V5/V6] Compared to ECG 07/13/2020 13:30:54 Atrial fibrillation no longer present T-wave abnormality still present Possible ischemia still present Electronically Signed On 07-13-2020 19:00:15 REGIONAL AIRLINE PILOT by Myrtle Wilson M.D. [id number]
--- NOTE | 2020-07-13 20:20 | PC.NURSE ---
Report given and patient transferred to VICU via bed. No other needs voiced at this time. Patient tolerated well.
--- NOTE | 2020-07-13 20:22 | USCV_ITS ---
Ying Valdez Age: 75 Gender: F : 1945 Exam Date: 07/13/2020 06:13 Ordering Phys: Jovan Kohler MD Technologist: China Lomeli [place] [facility] [place] [facility] [place]: SYNCOPE Risk Factors: Unknown Previous Vascular Surgery: None Right Brachial BP: / Left Brachial BP: / Right Left Velocity (cm/s) Spectral Plaque Velocity (cm/s) Spectral Plaque Syst/Diast Broadening Syst/Diast Broadening 83.80/ 14.30 Prox CCA 41.40 / 13.10 56.20/ 13.20 Mid CCA 40.10 / 14.50 59.50/ 14.30 Hetro Distal CCA 40.80 / 11.80 Mod Hetro 122.65/30.15 Mod Hetro Prox ICA 153.80/ 39.10 Mod Hetro 152.80/48.30 Min Mid ICA 119.60/ 24.40 120.60/34.20 Distal ICA 84.50 / 23.40 88.40 Hetro ECA 166.00 Mod Hetro 2.57 ICA/CCA 3.77 Vertebral Antegrade / cm/s 72.00/ 25.20 cm/s Bi Subclavian Bi 102.5 67.00 0 FINDINGS Comparison: 04-22-12. See measurements listed above. Moderate to heavy heterogeneous plaques at the right bifurcation and internal carotid artery Moderate to heavy heterogeneous plaques at the left bifurcation and proximal internal carotid artery Intimal thickening and minimal plaques in the common carotid arteries bilaterally. Right vertebral artery could not be visualized well. Elevated Doppler velocity in the left external carotid artery CONCLUSIONS Moderate to heavy heterogeneous plaques at the bifurcations and internal carotid arteries bilaterally, suggestive of 50 to 79% . Intimal thickening and minimal plaques in the common carotid arteries bilaterally. Elevated velocity in the left external carotid artery, may suggest hemodynamically significant stenosis Right vertebral artery could not be visualized well No previous studies available for comparison Dr Myrtle Wilson MD [facility] (Electronically Signed) Final Date: 13 July 2020 10:54 S
[2020-07-13] MEDS: albuterol 8 gm MDI 2 PUFF INHALATION (21:32)
[2020-07-13 21:51] LABS: Glucose Point of Care 114 mg/dL (70-110)
[2020-07-13] MEDS: enoxaparin 60 mg/0.6 mL Syringe SUBCUT (21:53)
[2020-07-14] VITALS (34 sets, daily range): BP systolic 95–219; BP diastolic 48–96; PULSE 59–94; RESP 18–36; TEMP 36.6–37.2; O2SAT 90–97
[2020-07-14 04:15] LABS: Basophils % 0.2 %; Hematocrit 30.9 % (37.0-47.0); Hemoglobin 10.1 g/dL (11.5-15.3); Lymphocytes # 1.1 10^3/uL (0.8-4.8); Lymphocytes % 9.4 %; Mean Corpuscular HGB Conc 32.7 g/dL (30.0-36.0); Mean Corpuscular Hemoglobin 34.1 pg (28.0-34.0); Mean Corpuscular Volume 104.4 fL (81-99); Monocytes # 0.6 10^3/uL (0.2-0.9); Monocytes % 5.1 %; Neutrophils % 84.1 %; Nucleated Red Blood Cells % 0.2 %; Platelet Count 172 10^3/cmm (130-400); Red Blood Count 2.96 10^6/uL (4.1-5.3); Red Cell Distribution Width 14.2 % (12.1-15.1); White Blood Count 11.3 10^3/uL (4.0-10.0)
[2020-07-14 04:37] LABS: Alanine Aminotransferase 28 U/L (0-33); Albumin Level 2.7 g/dL (3.5-5.2); Alkaline Phosphatase 88 IU/L (35-105); Anion Gap 18.2 (5-19); Aspartate Amino Transferase 72 U/L (0-32); Blood Urea Nitrogen 33 mg/dL (8-23); C Reactive Protein 24.1 mg/L (0.0-4.9); Carbon Dioxide 18 mmol/L (22-29); Chloride 109 mmol/L (98-107); Globulin 3.2 g/dL (1.3-4.6); Glucose 55 mg/dL (65-115); Magnesium 2.2 mg/dL (1.7-2.3); Osmolality Calculated 297 mOsm/kg (285-295); Phosphorus 1.8 mg/dL (2.5-4.5); Potassium 4.2 mmol/L (3.5-5.1); Sodium 141 mmol/L (136-145); Total Bilirubin 0.5 mg/dL (0.15-1.2); Total Protein 5.9 g/dL (6.6-8.7)
[2020-07-14 04:39] LABS: NT Pro B Type Natriuretic Pept 21216 pg/mL (0-450); Procalcitonin 0.47 ng/mL (0-0.5)
[2020-07-14 04:51] LABS: Creatine Phosphokinase 255 U/L (26-192)
[2020-07-14 04:55] LABS: INR 1.56 (0.8-1.2)
[2020-07-14 05:25] LABS: ABG PCO2 29.3 mmHg (35-45); ABG PH Result 7.44 (7.35-7.45); Arterial Blood Gas Hematocrit 34.4 % (37-47); Base Excess ABG -3.6 mmol/L (-2.0-2.0); Blood Gas Allen Test Pos; Blood Gas Operator Identificat Anonymous; Blood Gas Sample Type Arterial; HCO3 ABG 19.7 mmol/L (22-26); PO2 ABG 67.6 mmHg (80.0-100.0)
[2020-07-14 05:32] LABS: Slide Review Slide Review Perform
--- NOTE | 2020-07-14 06:00 | ECG_ITS ---
[facility] ED Test Date: 2020-07-14 Pat Name: Ying Valdez Department: Room: ICU19 Gender: Female Geriatric Nurse: : 1945 Requested By: Jovan Kohler Order Number: [id number] Fernanda MD: Antonieta Ely M.D. Measurements Intervals [place] Rate: 74 P: [place]: -1 QRS: 114 QRSD: 153 T: 34 QT: 470 QTc: 522 Interpretive Statements ATRIAL FLUTTER/TACHYCARDIA RIGHT BUNDLE BRANCH BLOCK LEFT POSTERIOR FASCICULAR BLOCK ST DEPRESSION, CONSIDER SUBENDOCARDIAL INJURY Compared to ECG 07/13/2020 17:23:23 ST (T wave) deviation now present T-wave abnormality no longer present Possible ischemia no longer present Electronically Signed On 07-17-2020 8:08:55 REMEDIAL TEACHER by Antonieta Ely M.D. [email or web address]/store/[id number]
--- NOTE | 2020-07-14 06:12 | PC.NURSE ---
Holding Novolog till breakfast time, will alert day shift of need to give
--- NOTE | 2020-07-14 07:00 | XRR_ITS ---
PROCEDURE INFORMATION: Exam: XR Chest, 1 View Exam date and time: 07/14/2020 4:02 AM Age: 75 years old Clinical indication: Condition or disease; Other: Covid; Additional info: SOB TECHNIQUE: Imaging protocol: XR of the chest Views: 1 view. COMPARISON: CR XR chest 1V portable [id number] 07/12/2020 10:29 AM FINDINGS: Lungs: Unremarkable. No consolidation. Pleural space: Unremarkable. No pleural effusion. No pneumothorax. Heart/Mediastinum: Unremarkable. No cardiomegaly. Bones/joints: Unremarkable. Other findings: There are worsening bilateral ground-glass and patchy opacities present compared with 07/12/2020. XR/XR chest 1V portable [id number] IMPRESSION: Worsening bilateral ground-glass and patchy opacities compared with 07/12/2020.
[2020-07-14] MEDS: albuterol 8 gm MDI 2 PUFF INHALATION ×2 (08:43→20:36)
[2020-07-14] MEDS: aspirin 81 mg EC Tablet PO (09:17)
[2020-07-14] MEDS: amlodipine 10 mg Tablet PO (09:17)
[2020-07-14] MEDS: clopidogrel 75 mg Tablet PO (09:17)
[2020-07-14] MEDS: phosphorus 250 mg Tablet 500 MG PO (09:17)
[2020-07-14] MEDS: atorvastatin 40 mg Tablet 20 MG PO (09:18)
[2020-07-14] MEDS: pantoprazole DR 40 mg Tablet PO (09:18)
[2020-07-14] MEDS: ascorbic acid 500 mg Tablet PO ×2 (09:18→18:40)
[2020-07-14] MEDS: FUROsemide 10 mg/mL SDV 4mL 40 MG IVP (09:20)
[2020-07-14] MEDS: dexamethasone 4 mg/mL INJ 6 MG IVP (09:21)
[2020-07-14] MEDS: isosorbide mononitrate ER 60 mg Tablet 120 MG PO (10:28)
[2020-07-14] MEDS: levothyroxine 125 mcg Tablet PO (10:29)
[2020-07-14] MEDS: cloNIDine 0.1 mg Tablet PO (10:29)
[2020-07-14] MEDS: ferrous sulfate EC 325 mg Tablet 650 MG PO (10:29)
[2020-07-14] MEDS: potassium chloride ER 10 mEq Tablet 20 MEQ PO (10:32)
[2020-07-14 10:52] LABS: Glucose Point of Care 131 mg/dL (70-110)
[2020-07-14] MEDS: vancomycin 1,000 MG in sodium chloride 0.9% 250 ML 250 MG IV (12:00)
[2020-07-14 12:44] LABS: Glucose Point of Care 132 mg/dL (70-110)
--- NOTE | 2020-07-14 13:11 | PM.PN ---
Subjective Subjective: Interval history: Patient was examined this morning, she stills complains of weakness, but is able to ambulate with assistance, no lightheadedness, no dizziness, some shortness of breath with exertion, no fevers, no chills Vitals/I&O/Wt Last Vital Signs Temp 98.9 F 07/14/20 08:28 Pulse 77 07/14/20 11:01 Resp 18 07/14/20 08:42 BP 183/94 07/14/20 08:00 Pulse Ox 92 07/14/20 11:01 07/13/20 07/14/20 07/14/20 22:59 06:59 14:59 Intake Total 550 / 1200 350 / 1550 Output Total 300 / 600 Balance 250 / 600 350 / 950 Physical Exam Const: COMMON NORMALS: no acute distress and patient oriented x3 HENMT: COMMON NORMALS: normocephalic HEAD & SCALP: normocephalic Neck/C-Spine: COMMON NORMALS: no JVD Resp: COMMON NORMALS: normal respiratory effort, No retractions and No use of accessory muscles AUSCULTATION: wheezes Cardio: COMMON NORMALS: no JVD, regular rate, regular rhythm, S1 normal heart sound present and S2 normal heart sound present RATE: regular rate RHYTHM: regular rhythm HEART SOUNDS: S1 normal heart sound present and S2 normal heart sound present GI: COMMON NORMALS: Normal to inspection, nondistended, normoactive bowel sounds present, Soft to palpation, non-tender, No hepatosplenomegaly present, no masses and no bruits PALPATION: Yes Soft to palpation and Yes No hepatosplenomegaly present Extremity: COMMON NORMALS: capillary refill normal, no clubbing, cyanosis or edema, no calf tenderness and no pedal edema Neuro: COMMON NORMALS: patient oriented x3 Psych: COMMON NORMALS: mental status grossly normal Data : 07/14/20 03:00 07/14/20 03:00 Micro: Microbiology 07/14/20 11:40 Blood Culture - Preliminary Blood SPECIMEN COLLECTED 07/14/20 11:40 Blood Culture - Preliminary Blood SPECIMEN COLLECTED A&P Assessment and plan (1) Acute respiratory failure with hypoxia: -Risk factors include CHF, CABG, CAD, COPD, exposure to secondhand smoking -Secondary to COVID-19 pneumonia -Now with concerns with sepsis, lactic acidosis, and secondary bacterial pneumonia -Hemodynamic stable, no tachycardia events, now on 2 to 3 L, urine output 300 cc Plan: -We will move patient to viral ICU -Decadron 6 mg IV push daily -Remdesivir daily -Unfortunately ER did not obtain blood cultures, urine cultures, sputum cultures, will have to draw today, in light of this we will have to continue antibiotics as lactic acid was in the high fours yesterday, currently down to 2.0 -Continue vancomycin, Primaxin, azithromycin until least 1 blood culture is negative -Albuterol, Advair -Oxygen therapy -Daily EKGs -Daily inflammatory markers -Therapeutic Lovenox for DVT prophylaxis and PE prophylaxis, concern for hypercoagulability, A. fib -Protonix for GI prophylaxis -Full code Status: Acute (2) Sepsis: Status: Acute (3) Pneumonia due to COVID-19 virus: Status: Acute (4) Lactic acidosis: -Resolved Status: Acute (5) Transaminitis: Secondary to COVID-19 Status: Acute (6) NSTEMI (non-ST elevated myocardial infarction): -Has complaints of pleuritic chest pain -History of CABG x4, CAB x6 -Baseline troponin pending 42, unfortunately troponin series was not drawn, will have to redraw -EKG shows lateral ST depressions -Likely type II secondary to acute respiratory failure and COVID-19 -Echocardiogram shows an EF of 50%, grade 3 out of 4 diastolic dysfunction, mild diffuse hypokinesia of the septum and basal inferior wall segments, severely elevated filling pressures, moderately increased left atrial size, moderate mitral valve regurg, moderate mild tricuspid valve regurg, moderate pulmonary hypertension 67 mmHg -Possible myopericarditis PLAN: -Serial EKGs, serial troponins, monitor for chest pain -Aspirin, Plavix, statin, bsystolic -Spoke to cardiology, no urgent need for stress testing or cardiac cath, likely will require outpatient follow-up Status: Acute (7) Atrial fibrillation: -EKG shows A. fib, telemetry shows A. fib, rate is controlled -Therapeutic Lovenox -Continue the bsystolic -Telemetry monitoring -Likely from COVID-19 pneumonia, acute respiratory failure Status: Acute (8) Acute kidney injury: -Creatinine 1.4, secondary dehydration, hypovolemic -Creatinine improving, baseline 1.4-5 Status: Acute (9) Hyponatremia: Hypovolemic hyponatremia, resolved Status: Acute (10) Syncope: Sounds like true syncopal episode 2 weeks ago Unsure if it is related to Covid symptoms Echocardiogram as above Carotid ultrasound shows: Moderate to heavy heterogeneous plaques at the bifurcations and internal carotid arteries bilaterally, suggestive of 50 to 79% . Intimal thickening and minimal plaques in the common carotid arteries bilaterally. Elevated velocity in the left external carotid artery, may suggest hemodynamically significant stenosis -Findings are concerning for symptomatic carotids, will require a CTA of the head and neck once creatinine has stabilized CT of the head negative for acute hemorrhage, acute stroke, subdural hematoma Telemetry monitoring does show A. fib events, EKG shows A. fib, lateral ST depressions Cannot rule out cardiac etiology, continue telemetry monitoring Status: Acute (11) Dehydration: Status: Acute (12) GERD (gastroesophageal reflux disease): Status: Acute (13) Hypertension: Status: Acute (14) Hypothyroidism: Continue levothyroxine Status: Acute (15) Insulin dependent type 2 diabetes mellitus: Continue NPH, 20 units in morning, 50 units at night, low-dose sliding scale Status: Acute (16) CHF (congestive heart failure): Status: Acute (17) CAD (coronary artery disease): Status: Acute Qualifiers: Coronary Disease-Associated Artery/Lesion type: bypass graft [place] vs. transplanted heart: [place] heart Associated angina: without angina Qualified Code(s): I25.810 - Atherosclerosis of coronary artery bypass graft(s) without angina pectoris (18) Hx of CABG: Status: Acute (19) COPD (chronic obstructive pulmonary disease): Status: Acute Additional A&P Information Plan for today is to get up out of bed, encourage ambulation, wean oxygen, Lasix therapy for today, continue antibiotics, monitor vitals, get blood cultures, urine cultures, sputum cultures Attestations Medical Necessity Statement*: She requires hospitalization, for acute respiratory failure secondary COVID-19, and hopefully moved to the general medical floors in the next 24 to 48 hours Coding Level of Care Code Acute Food Service Clerk for Fabiola Lamb Diagnoses Acute respiratory failure with hypoxia J96.01 Sepsis A41.9 Pneumonia due to COVID-19 virus U07.1; J12.89 Lactic acidosis E87.2 Transaminitis R74.01 NSTEMI (non-ST elevated myocardial infarction) I21.4 Atrial fibrillation I48.91 Acute kidney injury N17.9 Hyponatremia E87.1 Syncope R55 Dehydration E86.0 GERD (gastroesophageal reflux disease) K21.9 Hypertension I10 Hypothyroidism E03.9 Insulin dependent type 2 diabetes mellitus E11.9; Z79.4 CHF (congestive heart failure) I50.9 CAD (coronary artery disease) I25.810 Coronary Disease-Associated Artery/Lesion type: bypass graft [place] vs. transplanted heart: [place] heart Associated angina: without angina Hx of CABG Z95.1 COPD (chronic obstructive pulmonary disease) J44.9
[2020-07-14] MEDS: azithromycin 500 MG in sodium chloride 0.9% 250 ML 250 MG IV (13:22)
--- NOTE | 2020-07-14 16:29 | PC.OT ---
OT tx attempted. Pt transferred to ICU 19-4. Hold OT tx today and plan to resume tomorrow.
[2020-07-14 16:59] LABS: Glucose Point of Care 162 mg/dL (70-110)
--- NOTE | 2020-07-14 18:39 | PC.NURSE ---
DR. CRAIG NOTIFIED OF PTS BP OF 96/54, INSTRUCTED TO HOLD 1800 CLONIDINE DOSE
[2020-07-14] MEDS: dicyclomine 10 mg Capsule PO (18:41)
[2020-07-14] MEDS: insulin aspart 70/30 100 units/1 mL 15 UNIT SUBCUT (18:42)
[2020-07-14 21:39] LABS: Glucose Point of Care 217 mg/dL (70-110)
[2020-07-14] MEDS: enoxaparin 60 mg/0.6 mL Syringe SUBCUT (21:46)
[2020-07-15] VITALS (27 sets, daily range): BP systolic 105–158; BP diastolic 55–87; PULSE 66–80; RESP 16–27; TEMP 36.4–37.2; O2SAT 90–96
[2020-07-15 03:55] LABS: ABG PCO2 26.7 mmHg (35-45); ABG PH Result 7.48 (7.35-7.45); Arterial Blood Gas Hematocrit 35.6 % (37-47); Base Excess ABG -2.7 mmol/L (-2.0-2.0); Blood Gas Sample Type Arterial; HCO3 ABG 19.7 mmol/L (22-26); PO2 ABG 75.4 mmHg (80.0-100.0)
[2020-07-15 03:56] LABS: Blood Gas Operator Identificat HARKR; Blood Gas Sample Site Brachial, right; Oxygen Device NC
[2020-07-15 03:58] LABS: Basophils % 0.1 %; Hematocrit 31.8 % (37.0-47.0); Hemoglobin 10.5 g/dL (11.5-15.3); Lymphocytes # 1.3 10^3/uL (0.8-4.8); Lymphocytes % 13.2 %; Mean Corpuscular Hemoglobin 34.5 pg (28.0-34.0); Mean Corpuscular Volume 104.6 fL (81-99); Mean Platelet Volume 10.8 fL (7.4-10.4); Monocytes # 0.4 10^3/uL (0.2-0.9); Monocytes % 4.3 %; Neutrophils # 7.87 10^3/uL (1.8-7.7); Neutrophils % 81.2 %; Nucleated Red Blood Cells % 0.3 %; Platelet Count 155 10^3/cmm (130-400); Red Blood Count 3.04 10^6/uL (4.1-5.3); Red Cell Distribution Width 14.7 % (12.1-15.1); White Blood Count 9.7 10^3/uL (4.0-10.0)
[2020-07-15 04:15] LABS: INR 1.77 (0.8-1.2)
[2020-07-15 04:25] LABS: Alanine Aminotransferase 35 U/L (0-33); Albumin Level 2.7 g/dL (3.5-5.2); Alkaline Phosphatase 97 IU/L (35-105); Blood Urea Nitrogen 43 mg/dL (8-23); C Reactive Protein 23.3 mg/L (0.0-4.9); Calcium 8.1 mg/dL (8.5-10.5); Carbon Dioxide 19 mmol/L (22-29); Chloride 108 mmol/L (98-107); Globulin 3.4 g/dL (1.3-4.6); Glucose 89 mg/dL (65-115); Magnesium 2.4 mg/dL (1.7-2.3); Osmolality Calculated 298 mOsm/kg (285-295); Phosphorus 2.5 mg/dL (2.5-4.5); Sodium 139 mmol/L (136-145); Total Bilirubin 0.6 mg/dL (0.15-1.2); Total Protein 6.1 g/dL (6.6-8.7)
[2020-07-15 04:27] LABS: Anion Gap 16.6 (5-19); Aspartate Amino Transferase 100 U/L (0-32)
[2020-07-15 04:28] LABS: Potassium 4.6 mmol/L (3.5-5.1)
[2020-07-15 04:29] LABS: Lactic Sepsis W/Reflex 2.8 mmol/L (0.5-2.2)
[2020-07-15 05:34] LABS: NT Pro B Type Natriuretic Pept 20589 pg/mL (0-450); Procalcitonin 0.57 ng/mL (0-0.5)
[2020-07-15 05:40] LABS: Reflex Lactate Order REFLEX LACTIC ORDERD
[2020-07-15 05:50] LABS: Creatine Phosphokinase 295 U/L (26-192)
--- NOTE | 2020-07-15 06:00 | ECG_ITS ---
[facility] ED Test Date: 2020-07-15 Pat Name: Ying Valdez Department: Room: ICU19 Gender: Female Machine Stamper: : 1945 Requested By: Jovan Kohler Order Number: [id number] Fernanda MD: Antonieta Ely M.D. Measurements Intervals [place] Rate: 69 P: NM: -1 QRS: 128 QRSD: 153 T: -88 QT: 476 QTc: 511 Interpretive Statements ATRIAL FIBRILLATION RIGHT BUNDLE BRANCH BLOCK LEFT POSTERIOR FASCICULAR BLOCK ST DEVIATION AND MODERATE T-WAVE ABNORMALITY, CONSIDER LATERAL ISCHEMIA Compared to ECG 07/14/2020 04:12:01 T-wave abnormality now present Possible ischemia now present Atrial flutter no longer present ST (T wave) deviation no longer present Electronically Signed On 07-16-2020 22:02:21 LINEMARKER by Antonieta Ely M.D. [id number]
[2020-07-15 07:21] LABS: Lactic Acid level (Lactate) 1.7 mmol/L (0.5-2.2)
--- NOTE | 2020-07-15 07:28 | XR_ITS ---
WS: [id number] Exam: XR chest 1V portable [id number] Date/Time of Exam: 07/15/2020 7:35 AM Reason For Exam: sob Comparison 07/14/2020. Bilateral consolidating infiltrates are noted. Infiltrates have worsened slightly since prior study. The lungs are fully expanded. No pleural effusions. The mediastinum is not widened. Heart size remain s normal. Signs of median sternotomy. XR/XR chest 1V portable [id number] IMPRESSION: 1. Patchy bilateral consolidating infiltrates which have worsened slightly sinc e prior study. No other change.
[2020-07-15 08:34] LABS: Glucose Point of Care 73 mg/dL (70-110)
--- NOTE | 2020-07-15 08:49 | PC.SOCIAL ---
IMM Update Pg. 2 of IMM discussed with patient's daughter over the phone, who verbalized understanding.
[2020-07-15] MEDS: albuterol 8 gm MDI 2 PUFF INHALATION ×2 (08:57→19:33)
[2020-07-15] MEDS: dicyclomine 10 mg Capsule PO ×2 (09:44→16:44)
[2020-07-15] MEDS: dexamethasone 4 mg/mL INJ 6 MG IVP (09:44)
[2020-07-15] MEDS: isosorbide mononitrate ER 60 mg Tablet 120 MG PO (09:45)
[2020-07-15] MEDS: aspirin 81 mg EC Tablet PO (09:46)
[2020-07-15] MEDS: ascorbic acid 500 mg Tablet PO ×2 (09:46→17:54)
[2020-07-15] MEDS: levothyroxine 125 mcg Tablet PO (09:46)
[2020-07-15] MEDS: amlodipine 10 mg Tablet PO (09:47)
[2020-07-15] MEDS: clopidogrel 75 mg Tablet PO (09:47)
[2020-07-15] MEDS: potassium chloride ER 10 mEq Tablet 20 MEQ PO (09:47)
[2020-07-15] MEDS: pantoprazole DR 40 mg Tablet PO (09:47)
[2020-07-15] MEDS: ferrous sulfate EC 325 mg Tablet 650 MG PO (09:47)
[2020-07-15] MEDS: insulin aspart 70/30 100 units/1 mL 20 UNIT SUBCUT (10:18)
[2020-07-15] MEDS: metOLazone 5 MG Tablet PO (11:01)
[2020-07-15] MEDS: FUROsemide 10 mg/mL SDV 4mL 40 MG IVP ×2 (11:03→22:13)
[2020-07-15 11:45] LABS: Glucose Point of Care 89 mg/dL (70-110)
--- NOTE | 2020-07-15 11:57 | PC.RESP ---
PULMONARY REHAB INFORMATION SENT TO PATIENT.
[2020-07-15 12:13] LABS: Vancomycin Trough 15.6 ug/mL (10-15)
--- NOTE | 2020-07-15 12:28 | PM.PN ---
Subjective Subjective: Interval history: This morning patient was examined, she remains on 4 L nasal cannula, but she does require up to 6 to 7 L when she gets up and uses the bathroom, still feels weak, a bit short of breath, lung examination reveals diffuse crackles, chest x-ray shows early evidence of developing pulmonary edema and/or ards, blood cultures so far negative, Vitals/I&O/Wt Last Vital Signs Temp 98.9 F 07/15/20 08:00 Pulse 71 07/15/20 09:00 Resp 20 H 07/15/20 09:00 BP 108/77 07/15/20 10:00 Pulse Ox 90 07/15/20 10:00 07/14/20 07/15/20 07/15/20 22:59 06:59 14:59 Intake Total 440 / 780 100 / 880 940 / 940 Output Total 600 / 600 250 / 850 Balance -160 / 180 -150 / 30 940 / 940 Physical Exam Const: COMMON NORMALS: no acute distress GENERAL APPEARANCE: frail appearing NUTRITIONAL APPEARANCE: thin ORIENTATION/CONSCIOUSNESS: Yes awake, Yes oriented to person, Yes oriented to place and Yes oriented to time HENMT: COMMON NORMALS: normocephalic HEAD & SCALP: normocephalic Neck/C-Spine: COMMON NORMALS: no JVD Resp: COMMON NORMALS: normal respiratory effort, No retractions and No use of accessory muscles AUSCULTATION: crackles Cardio: COMMON NORMALS: no JVD, regular rate, regular rhythm, S1 normal heart sound present and S2 normal heart sound present RATE: regular rate RHYTHM: regular rhythm HEART SOUNDS: S1 normal heart sound present and S2 normal heart sound present GI: COMMON NORMALS: Normal to inspection, nondistended, normoactive bowel sounds present, Soft to palpation, non-tender, No hepatosplenomegaly present, no masses and no bruits PALPATION: Yes Soft to palpation and Yes No hepatosplenomegaly present Extremity: COMMON NORMALS: capillary refill normal, no clubbing, cyanosis or edema, no calf tenderness and no pedal edema Neuro: SENSORIUM/ORIENTATION: Yes oriented to person, Yes oriented to place and Yes oriented to time Psych: COMMON NORMALS: mental status grossly normal Data : 07/15/20 03:25 07/15/20 03:25 Micro: Microbiology 07/14/20 11:40 Blood Culture - Preliminary Blood SPECIMEN COLLECTED 07/14/20 11:40 Blood Culture - Preliminary Blood SPECIMEN COLLECTED A&P Assessment and plan (1) Acute respiratory failure with hypoxia: -Risk factors include CHF, CABG, CAD, COPD, exposure to secondhand smoking -Secondary to COVID-19 pneumonia -Now with concerns with sepsis, lactic acidosis, and secondary bacterial pneumonia -Chest x-ray shows worsening bilateral infiltrates, concerning for early developing acute respiratory distress syndrome and/[place] [address], creatinine 1.5, is using 4 L at rest, up to 6 to 7 L with exertion Plan: -We will move patient to viral ICU -Decadron 6 mg IV push daily -Remdesivir daily, will closely have to monitor GFR, as patient is borderline -Unfortunately ER did not obtain blood cultures, urine cultures, sputum cultures, before antibiotics were given -Follow blood cultures, urine cultures sputum cultures -Continue vancomycin, Primaxin, azithromycin -We will give 40 mg of IV Lasix twice daily, with albumin, with metolazone, monitor creatinine, monitor urine output -Albuterol, Advair -Oxygen therapy -Daily EKGs -Daily inflammatory markers -Therapeutic Lovenox for DVT prophylaxis and PE prophylaxis, concern for hypercoagulability, A. fib -Protonix for GI prophylaxis -Full code Status: Acute (2) Sepsis: Status: Acute (3) Pneumonia due to COVID-19 virus: Status: Acute (4) Lactic acidosis: -Resolved Status: Acute (5) Transaminitis: Secondary to COVID-19 Status: Acute (6) NSTEMI (non-ST elevated myocardial infarction): -Has complaints of pleuritic chest pain -History of CABG x4, CAB x6 -Baseline troponin pending 42, unfortunately troponin series was not drawn, will have to redraw -EKG shows lateral ST depressions -Likely type II secondary to acute respiratory failure and COVID-19 -Echocardiogram shows an EF of 50%, grade 3 out of 4 diastolic dysfunction, mild diffuse hypokinesia of the septum and basal inferior wall segments, severely elevated filling pressures, moderately increased left atrial size, moderate mitral valve regurg, moderate mild tricuspid valve regurg, moderate pulmonary hypertension 67 mmHg -Possible myopericarditis PLAN: -Serial EKGs, serial troponins, monitor for chest pain -Aspirin, Plavix, statin, bsystolic -Spoke to cardiology, no urgent need for stress testing or cardiac cath, likely will require outpatient follow-up Status: Acute (7) Atrial fibrillation: -EKG shows A. fib, telemetry shows A. fib, rate is controlled -Therapeutic Lovenox -Continue the bsystolic -Telemetry monitoring -Likely from COVID-19 pneumonia, acute respiratory failure Status: Acute (8) Acute kidney injury: -Creatinine 1.4, secondary dehydration, hypovolemic -Creatinine improving, baseline 1.4-5 Status: Acute (9) Hyponatremia: Hypovolemic hyponatremia, resolved Status: Acute (10) Syncope: Sounds like true syncopal episode 2 weeks ago Unsure if it is related to Covid symptoms Echocardiogram as above Carotid ultrasound shows: Moderate to heavy heterogeneous plaques at the bifurcations and internal carotid arteries bilaterally, suggestive of 50 to 79% . Intimal thickening and minimal plaques in the common carotid arteries bilaterally. Elevated velocity in the left external carotid artery, may suggest hemodynamically significant stenosis -Findings are concerning for symptomatic carotids, will require a CTA of the head and neck once creatinine has stabilized CT of the head negative for acute hemorrhage, acute stroke, subdural hematoma Telemetry monitoring does show A. fib events, EKG shows A. fib, lateral ST depressions Cannot rule out cardiac etiology, continue telemetry monitoring Status: Acute (11) Dehydration: Status: Acute (12) GERD (gastroesophageal reflux disease): Status: Acute (13) Hypertension: Status: Acute (14) Hypothyroidism: Continue levothyroxine Status: Acute (15) Insulin dependent type 2 diabetes mellitus: Continue NPH, 20 units in morning, 50 units at night, low-dose sliding scale Status: Acute (16) CHF (congestive heart failure): Status: Acute (17) CAD (coronary artery disease): Status: Acute Qualifiers: Coronary Disease-Associated Artery/Lesion type: bypass graft [place] vs. transplanted heart: [place] heart Associated angina: without angina Qualified Code(s): I25.810 - Atherosclerosis of coronary artery bypass graft(s) without angina pectoris (18) Hx of CABG: Status: Acute (19) COPD (chronic obstructive pulmonary disease): Status: Acute Additional A&P Information Plan for today is to get up out of bed, encourage ambulation, Lasix therapy for today, continue antibiotics, I am very concerned for patient's developing ards-like picture and/or pulmonary edema, will have to monitor closely for the next 24 hours Attestations Medical Necessity Statement*: Patient requires hospitalization for acute respiratory failure with hypoxia secondary to COVID-19, concerns for early developing acute respiratory distress syndrome and/or pulmonary edema Coding Level of Care Code Acute Quality Rn for Fabiola Fwd Diagnoses Acute respiratory failure with hypoxia J96.01 Sepsis A41.9 Pneumonia due to COVID-19 virus U07.1; J12.89 Lactic acidosis E87.2 Transaminitis R74.01 NSTEMI (non-ST elevated myocardial infarction) I21.4 Atrial fibrillation I48.91 Acute kidney injury N17.9 Hyponatremia E87.1 Syncope R55 Dehydration E86.0 GERD (gastroesophageal reflux disease) K21.9 Hypertension I10 Hypothyroidism E03.9 Insulin dependent type 2 diabetes mellitus E11.9; Z79.4 CHF (congestive heart failure) I50.9 CAD (coronary artery disease) I25.810 Coronary Disease-Associated Artery/Lesion type: bypass graft [place] vs. transplanted heart: [place] heart Associated angina: without angina Hx of CABG Z95.1 COPD (chronic obstructive pulmonary disease) J44.9
[2020-07-15] MEDS: vancomycin 1,000 MG in sodium chloride 0.9% 250 ML 250 MG IV (12:36)
[2020-07-15] MEDS: azithromycin 500 MG in sodium chloride 0.9% 250 ML 250 MG IV (12:59)
[2020-07-15 16:51] LABS: Glucose Point of Care 71 mg/dL (70-110)
[2020-07-15] MEDS: acetaminophen 325 mg Tablet PO (17:54)
--- NOTE | 2020-07-15 18:45 | PC.NURSE ---
Received report on patient from from [facility]. Assumed care at this time.
[2020-07-15] MEDS: enoxaparin 60 mg/0.6 mL Syringe SUBCUT (21:20)
[2020-07-16] VITALS (45 sets, daily range): BP systolic 117–178; BP diastolic 55–93; PULSE 16–96; RESP 15–29; TEMP 35.9–37.1; O2SAT 88–97
[2020-07-16] MEDS: acetaminophen 325 mg Tablet PO (00:05)
[2020-07-16 00:11] LABS: Glucose Point of Care 62 mg/dL (70-110)
[2020-07-16 00:34] LABS: Glucose Point of Care 77 mg/dL (70-110)
--- NOTE | 2020-07-16 01:01 | PC.NURSE ---
Patient stated that she was hurting in her right shoulder. Tylenol given for discomfort. Repositioned in bed.
[2020-07-16] MEDS: HYDROmorphone 1 mg/mL INJ 1 mL IVP (02:07)
[2020-07-16 04:39] LABS: Lactic Sepsis W/Reflex 1.7 mmol/L (0.5-2.2)
[2020-07-16 04:39] LABS: ABG PCO2 33.7 mmHg (35-45); Base Excess ABG -3.4 mmol/L (-2.0-2.0); Blood Gas Allen Test Pos; Blood Gas Sample Site Radial, right; Blood Gas Sample Type Arterial; HCO3 ABG 20.9 mmol/L (22-26); Oxygen Device NC; PO2 ABG 49.3 mmHg (80.0-100.0)
[2020-07-16 04:59] LABS: Basophils % 0.2 %; Hematocrit 26.5 % (37.0-47.0); Hemoglobin 8.9 g/dL (11.5-15.3); Lymphocytes % 10.2 %; Mean Corpuscular HGB Conc 33.6 g/dL (30.0-36.0); Mean Corpuscular Hemoglobin 35.5 pg (28.0-34.0); Mean Corpuscular Volume 105.6 fL (81-99); Mean Platelet Volume 11.6 fL (7.4-10.4); Monocytes # 0.4 10^3/uL (0.2-0.9); Monocytes % 3.9 %; Neutrophils # 8.01 10^3/uL (1.8-7.7); Neutrophils % 83.3 %; Nucleated Red Blood Cells # 0.1 /100WBC; Nucleated Red Blood Cells % 0.5 %; Platelet Count 140 10^3/cmm (130-400); Red Blood Count 2.51 10^6/uL (4.1-5.3); Red Cell Distribution Width 14.9 % (12.1-15.1); White Blood Count 9.6 10^3/uL (4.0-10.0)
[2020-07-16 05:17] LABS: INR 2.46 (0.8-1.2)
[2020-07-16 05:25] LABS: NT Pro B Type Natriuretic Pept 15116 pg/mL (0-450); Procalcitonin 0.39 ng/mL (0-0.5)
[2020-07-16 05:35] LABS: Alanine Aminotransferase 33 U/L (0-33); Albumin Level 4.4 g/dL (3.5-5.2); Alkaline Phosphatase 105 IU/L (35-105); Anion Gap 18.6 (5-19); Aspartate Amino Transferase 106 U/L (0-32); Blood Urea Nitrogen 46 mg/dL (8-23); C Reactive Protein 27.2 mg/L (0.0-4.9); Calcium 8.8 mg/dL (8.5-10.5); Carbon Dioxide 21 mmol/L (22-29); Chloride 110 mmol/L (98-107); Globulin 2.2 g/dL (1.3-4.6); Glucose 68 mg/dL (65-115); Magnesium 2.4 mg/dL (1.7-2.3); Osmolality Calculated 310 mOsm/kg (285-295); Phosphorus 4.2 mg/dL (2.5-4.5); Potassium 4.6 mmol/L (3.5-5.1); Sodium 145 mmol/L (136-145); Total Bilirubin 1.5 mg/dL (0.15-1.2); Total Protein 6.6 g/dL (6.6-8.7)
[2020-07-16 05:39] LABS: Creatine Phosphokinase 256 U/L (26-192)
--- NOTE | 2020-07-16 06:00 | ECG_ITS ---
[facility] ED Test Date: 2020-07-16 Pat Name: Ying Valdez Department: Room: ICU19 Gender: Female Lieutenant Shift Supervisor: : 1945 Requested By: Jovan Kohler Order Number: [id number] Fernanda MD: Antonieta Ely M.D. Measurements Intervals [place] Rate: 68 P: AR: -1 QRS: 130 QRSD: 159 T: -62 QT: 482 QTc: 515 Interpretive Statements ATRIAL FIBRILLATION RIGHT BUNDLE BRANCH BLOCK [120+ ms QRS DURATION, UPRIGHT V1, 40+ ms S IN I/aVL/V4/V5/V6] LEFT POSTERIOR FASCICULAR BLOCK [QRS AXIS > 109, INFERIOR Q] ST DEVIATION AND MODERATE T-WAVE ABNORMALITY, CONSIDER LATERAL ISCHEMIA [-0.1+ mV T WAVE IN I/aVL/V5/V6] Compared to ECG 07/15/2020 05:35:23 No significant changes Electronically Signed On 07-16-2020 21:55:50 MANAGER BUSINESS DEVELOPMENT [facility]OSPICE by Antonieta Ely M.D. [id number]
[2020-07-16] MEDS: levothyroxine 125 mcg Tablet PO (06:44)
--- NOTE | 2020-07-16 07:00 | PC.NURSE ---
Report given to [facility].
[2020-07-16 07:31] LABS: Glucose Point of Care 86 mg/dL (70-110)
--- NOTE | 2020-07-16 07:38 | XR_ITS ---
WS: [id number] Exam: XR chest 1V portable [id number] Date/Time of Exam: 07/16/2020 7:40 AM Reason For Exam: sob Comparison 07/15/2020. Increasing bilateral infiltrates are noted. Heart size is unchanged. No pneumothorax or pleural effus ion. Signs of median sternotomy. XR/XR chest 1V portable [id number] IMPRESSION: 1. Increasing bilateral consolidating infiltrates.
[2020-07-16 08:03] LABS: Slide Review Slide Review Perform
[2020-07-16] MEDS: dicyclomine 10 mg Capsule PO (08:36)
[2020-07-16] MEDS: FUROsemide 10 mg/mL SDV 4mL 40 MG IVP ×2 (08:50→11:40)
[2020-07-16] MEDS: dexamethasone 4 mg/mL INJ 6 MG IVP (08:51)
[2020-07-16] MEDS: amlodipine 10 mg Tablet PO (08:51)
[2020-07-16] MEDS: ascorbic acid 500 mg Tablet PO (08:51)
[2020-07-16] MEDS: clopidogrel 75 mg Tablet PO (08:52)
[2020-07-16] MEDS: pantoprazole DR 40 mg Tablet PO (08:52)
[2020-07-16] MEDS: isosorbide mononitrate ER 60 mg Tablet 120 MG PO (08:53)
[2020-07-16] MEDS: potassium chloride ER 10 mEq Tablet 20 MEQ PO (08:53)
[2020-07-16] MEDS: ferrous sulfate EC 325 mg Tablet 650 MG PO (08:53)
[2020-07-16] MEDS: aspirin 81 mg EC Tablet PO (08:54)
[2020-07-16] MEDS: albuterol 8 gm MDI 2 PUFF INHALATION (09:25)
[2020-07-16 11:05] LABS: Glucose Point of Care 101 mg/dL (70-110)
[2020-07-16] MEDS: metOLazone 5 MG Tablet PO (11:40)
--- NOTE | 2020-07-16 12:30 | P.PN_ITS ---
Subjective Subjective: Interval history: This morning patient was examined multiple times, she states that she feels short of breath, but is quite anxious, she was saturating in the high 90s on 9 L, continues to pant , no intercostal or suprasternal retractions, no nasal flaring, she was placed on high flow, 45 L, 60%, continues to panting ground, she does not know what is wrong, no shortness of breath, she does feel a bit anxious and nauseated,, no chest pain, no abdominal pain Vitals/I&O/Wt Last Vital Signs Temp 97.7 F 07/16/20 08:00 Pulse 16 L 07/16/20 11:30 Resp 18 07/16/20 11:30 BP 153/75 07/16/20 10:30 Pulse Ox 88 L 07/16/20 11:30 07/15/20 07/16/20 07/16/20 22:59 06:59 14:59 Intake Total 1000 / 2160 340 / 2500 640 / 640 Output Total 1750 / 1750 1400 / 3150 Balance -750 / 410 -1060 / -650 640 / 640 Physical Exam Const: COMMON NORMALS: no acute distress GENERAL APPEARANCE: in distress (Is panting, grunting) ORIENTATION/CONSCIOUSNESS: Yes awake, Yes oriented to person, Yes oriented to place and Yes oriented to time HENMT: COMMON NORMALS: normocephalic HEAD & SCALP: normocephalic Neck/C-Spine: COMMON NORMALS: no JVD Resp: COMMON NORMALS: normal respiratory effort, No retractions and No use of accessory muscles EFFORT & INSPECTION: Yes able to speak in complete sentences, No tachypneic, No respiratory distress, No pursed lip breathing, No labored, No grunting, No stridor, No Actively coughing and No retractions AUSCULTATION: crackles and rales Cardio: COMMON NORMALS: no JVD, regular rate, regular rhythm, S1 normal heart sound present and S2 normal heart sound present RATE: regular rate RHYTHM: regular rhythm HEART SOUNDS: S1 normal heart sound present and S2 normal heart sound present GI: COMMON NORMALS: Normal to inspection, nondistended, normoactive bowel sounds present, Soft to palpation, non-tender, No hepatosplenomegaly present, no masses and no bruits PALPATION: Yes Soft to palpation and Yes No hepatosplenomegaly present Extremity: COMMON NORMALS: capillary refill normal, no clubbing, cyanosis or edema, no calf tenderness and no pedal edema Neuro: SENSORIUM/ORIENTATION: Yes oriented to person, Yes oriented to place and Yes oriented to time Psych: COMMON NORMALS: mental status grossly normal Urinary Catheter Management^: Best: Cath Placed During This Visit: yes Reason for Continuing Indwelling Catheter: Accurate Measurement of Urinary Output in Critically Ill Patients Urinary Catheter Date of Insertion: 07/15/20 Urinary Catheter Time of Insertion: 12:10 Data : 07/16/20 03:10 07/16/20 03:10 Micro: Microbiology 07/14/20 12:40 MRSA Culture - Final Nose A&P Assessment and plan (1) Acute respiratory failure with hypoxia: -Risk factors include CHF, CABG, CAD, COPD, exposure to secondhand smoking -Secondary to COVID-19 pneumonia -Now with concerns with sepsis, lactic acidosis, and secondary bacterial pneumonia -Chest x-ray shows worsening bilateral infiltrates, concerning for early devel oping acute respiratory distress syndrome and/[place] [address], creatinine 1.5, i urine output lackluster yesterday 800 c Plan: - viral ICU -Continue heated high flow, BiPAP as needed -Remains a full code, will try our best to avoid intubation, due to high risk of morbidity and mortality associated -Decadron 6 mg IV push daily -Remdesivir daily, will closely have to monitor GFR, as patient is borderline -Unfortunately ER did not obtain blood cultures, urine cultures, sputum cultu res, before antibiotics were given -Follow blood cultures, urine cultures sputum cultures -Continue vancomycin, Primaxin, azithromycin -We will give 40 mg of IV Lasix daily 8 hours daily, with albumin, with metolazone, monitor creatinine, monitor urine output, so far has put out 3 L -Albuterol, Advair -Oxygen therapy -Daily EKGs -Daily inflammatory markers -Hemoglobin 8.9, INR 2.26, self anticoagulating, hold Lovenox, do DIC panel, repeat CBC -Therapeutic Lovenox for DVT prophylaxis and PE prophylaxis on hold, given hemoglobin 8.9 concern for hypercoagulability, A. fib -Protonix for GI prophylaxis -Full code Status: Acute (2) Sepsis: Status: Acute (3) Pneumonia due to COVID-19 virus: Status: Acute (4) Lactic acidosis: -Resolved Status: Acute (5) Transaminitis: Secondary to COVID-19 Status: Acute (6) NSTEMI (non-ST elevated myocardial infarction): -Has complaints of pleuritic chest pain -History of CABG x4, CAB x6 -Baseline troponin pending 42, unfortunately troponin series was not drawn, will have to redraw -EKG shows lateral ST depressions -Likely type II secondary to acute respiratory failure and COVID-19 -Echocardiogram shows an EF of 50%, grade 3 out of 4 diastolic dysfunction, mild diffuse hypokinesia of the septum and basal inferior wall segments, severely elevated filling pressures, moderately increased left atrial size, moderate mitral valve regurg, moderate mild tricuspid valve regurg, moderate pulmonary hypertension 67 mmHg -Possible myopericarditis PLAN: -Serial EKGs, serial troponins, monitor for chest pain -Aspirin, Plavix, statin, bsystolic -Spoke to cardiology, no urgent need for stress testing or cardiac cath, likely will require outpatient follow-up Status: Acute (7) Atrial fibrillation: -EKG shows A. fib, telemetry shows A. fib, rate is controlled -Therapeutic Lovenox -Continue the bsystolic -Telemetry monitoring -Likely from COVID-19 pneumonia, acute respiratory failure Status: Acute (8) Acute kidney injury: -Creatinine 1.4 -Creatinine improving, baseline 1.4-5 Status: Acute (9) Hyponatremia: Hypovolemic hyponatremia, resolved Status: Acute (10) Syncope: Sounds like true syncopal episode 2 weeks ago Unsure if it is related to Covid symptoms Echocardiogram as above Carotid ultrasound shows: Moderate to heavy heterogeneous plaques at the bifurcations and internal carotid arteries bilaterally, suggestive of 50 to 79% . Intimal thickening and minimal plaques in the common carotid arteries bilaterally. Elevated velocity in the left external carotid artery, may suggest hemodynamically significant stenosis -Findings are concerning for symptomatic carotids, will require a CTA of the head and neck once creatinine has stabilized CT of the head negative for acute hemorrhage, acute stroke, subdural hematoma Telemetry monitoring does show A. fib events, EKG shows A. fib, lateral ST depressions Cannot rule out cardiac etiology, continue telemetry monitoring Status: Acute (11) Dehydration: Status: Acute (12) GERD (gastroesophageal reflux disease): Status: Acute (13) Hypertension: Status: Acute (14) Hypothyroidism: Continue levothyroxine Status: Acute (15) Insulin dependent type 2 diabetes mellitus: Low blood sugars overnight, NPH 7030 on hold, continue low-dose sliding scale as needed Status: Acute (16) CHF (congestive heart failure): Status: Acute (17) CAD (coronary artery disease): Status: Acute Qualifiers: Coronary Disease-Associated Artery/Lesion type: bypass graft [place] vs. transplanted heart: [place] heart Associated angina: without angina Qualified Code(s): I25.810 - Atherosclerosis of coronary artery bypass graft(s) without angina pectoris (18) Hx of CABG: Status: Acute (19) COPD (chronic obstructive pulmonary disease): Status: Acute Additional A&P Information Plan for today is to increase Lasix dose to 40 IV every 8 hours, metolazone, monitor respiratory status closely, BiPAP as needed, start Precedex for anxiety Attestations Medical Necessity Statement*: Patient requires hospitalization for acute respiratory failure secondary to COVID-19 pneumonia Coding Level of Care Code Acute Funeral Service Apprentice for Chg Fwd Diagnoses Acute respiratory failure with hypoxia J96.01 Sepsis A41.9 Pneumonia due to COVID-19 virus U07.1; J12.89 Lactic acidosis E87.2 Transaminitis R74.01 NSTEMI (non-ST elevated myocardial infarction) I21.4 Atrial fibrillation I48.91 Acute kidney injury N17.9 Hyponatremia E87.1 Syncope R55 Dehydration E86.0 GERD (gastroesophageal reflux disease) K21.9 Hypertension I10 Hypothyroidism E03.9 Insulin dependent type 2 diabetes mellitus E11.9; Z79.4 CHF (congestive heart failure) I50.9 CAD (coronary artery disease) I25.810 Coronary Disease-Associated Artery/Lesion type: bypass graft [place] vs. transplanted heart: [place] heart Associated angina: without angina Hx of CABG Z95.1 COPD (chronic obstructive pulmonary disease) J44.9
[2020-07-16] MEDS: LORazepam 2 mg/mL INJ 1 mL 0.5 MG IVP (12:34)
[2020-07-16] MEDS: azithromycin 500 MG in sodium chloride 0.9% 250 ML 250 MG IV (12:34)
[2020-07-16 17:06] LABS: Glucose Point of Care 125 mg/dL (70-110)
[2020-07-16] MEDS: OLANZapine 10 mg VIAL 5 MG IM (18:10)
--- NOTE | 2020-07-16 18:45 | PC.NURSE ---
Received report on patient from [facility]. Assumed care at this time.
--- NOTE | 2020-07-16 18:54 | PC.NURSE ---
Family called confused why patient could not be made comfort care since patient was confused and daughter is POA. Daughter Polina stated she did not want patient to continue to be uncomfortable or suffer in any way. I only discussed the possibility of patient becoming intubated in the future considering how patient is declining. Later I discussed with Angela Sam and she stated that family would need to bring in the POA paperwork so we can have physical copy. Nilda Murphy, manager generation updated and aware of situation as well.
[2020-07-16] MEDS: dexmedetomidine 400 MCG in sodium chloride 0.9% (100 ml) 100 ML IV (19:55)
[2020-07-16 20:14] LABS: Glucose Point of Care 149 mg/dL (70-110)
[2020-07-17] VITALS (28 sets, daily range): BP systolic 104–135; BP diastolic 55–73; PULSE 61–73; RESP 16–24; TEMP 34.3–37; O2SAT 93–97
[2020-07-17 03:55] LABS: Basophils % 0.1 %; Hematocrit 25.6 % (37.0-47.0); Hemoglobin 8.4 g/dL (11.5-15.3); Mean Corpuscular HGB Conc 32.8 g/dL (30.0-36.0); Mean Corpuscular Hemoglobin 35.3 pg (28.0-34.0); Mean Corpuscular Volume 107.6 fL (81-99); Mean Platelet Volume 12.3 fL (7.4-10.4); Monocytes # 0.3 10^3/uL (0.2-0.9); Monocytes % 3.9 %; Neutrophils # 5.93 10^3/uL (1.8-7.7); Nucleated Red Blood Cells % 0.4 %; Platelet Count 130 10^3/cmm (130-400); Red Blood Count 2.38 10^6/uL (4.1-5.3); Red Cell Distribution Width 15.5 % (12.1-15.1); White Blood Count 7.4 10^3/uL (4.0-10.0)
[2020-07-17 04:15] LABS: Alanine Aminotransferase 32 U/L (0-33); Albumin Level 3.4 g/dL (3.5-5.2); Alkaline Phosphatase 102 IU/L (35-105); Aspartate Amino Transferase 69 U/L (0-32); Blood Urea Nitrogen 60 mg/dL (8-23); Calcium 8.3 mg/dL (8.5-10.5); Carbon Dioxide 21 mmol/L (22-29); Chloride 112 mmol/L (98-107); Globulin 2.4 g/dL (1.3-4.6); Glucose 154 mg/dL (65-115); Magnesium 2.4 mg/dL (1.7-2.3); Osmolality Calculated 322 mOsm/kg (285-295); Phosphorus 5.6 mg/dL (2.5-4.5); Sodium 146 mmol/L (136-145); Total Bilirubin 1.2 mg/dL (0.15-1.2); Total Protein 5.8 g/dL (6.6-8.7)
[2020-07-17 04:25] LABS: Lactic Sepsis W/Reflex 2.4 mmol/L (0.5-2.2)
[2020-07-17 04:29] LABS: NT Pro B Type Natriuretic Pept 22691 pg/mL (0-450); Procalcitonin 1.04 ng/mL (0-0.5)
[2020-07-17 04:31] LABS: INR 3.31 (0.8-1.2)
[2020-07-17 04:32] LABS: Fibrinogen 185 mg/dL (174-498); Partial Thromboplastin Time 43.5 SECONDS (23.9-36.7)
[2020-07-17 04:41] LABS: D Dimer 6.64 ug/mIFEU (0-0.59)
[2020-07-17 04:43] LABS: Creatine Phosphokinase 205 U/L (26-192)
[2020-07-17 05:19] LABS: Slide Review Slide Review Perform
[2020-07-17 05:29] LABS: Reflex Lactate Order REFLEX LACTIC ORDERD
[2020-07-17 06:00] LABS: Glucose Point of Care 170 mg/dL (70-110)
[2020-07-17] MEDS: insulin aspart 70/30 100 units/1 mL 7 UNIT SUBCUT ×2 (06:41→16:56)
--- NOTE | 2020-07-17 07:00 | XR_ITS ---
WS: [id number] Exam: XR chest 1V portable [id number] Date/Time of Exam: 07/17/2020 5:10 AM Reason For Exam: sob Comparison 07/16/2020. Extensive bilateral pulmonary infiltrates are noted that show little change since previous study. Hea rt size is unchanged. No pneumothorax. New right small basal pleural effusion noted. The mediastinum is not widened. Status post CABG surgery. XR/XR chest 1V portable [id number] IMPRESSION: 1. Extensive bilateral pulmonary infiltrates showing no change. 2. Small right basal pleural effusion.
[2020-07-17 07:33] LABS: Lactic Acid level (Lactate) 2.3 mmol/L (0.5-2.2)
[2020-07-17] MEDS: dexamethasone 4 mg/mL INJ 6 MG IVP (08:42)
[2020-07-17] MEDS: sodium chloride 0.9% 1,000 ML 75 ML IV (08:44)
[2020-07-17 08:51] LABS: ABG PCO2 34.3 mmHg (35-45); ABG PH Result 7.39 (7.35-7.45); Arterial Blood Gas Hematocrit 28.3 % (37-47); Base Excess ABG -3.7 mmol/L (-2.0-2.0); Blood Gas Allen Test Pos; Blood Gas Sample Site Radial, right; Blood Gas Sample Type Arterial; HCO3 ABG 20.8 mmol/L (22-26); PO2 ABG 93.3 mmHg (80.0-100.0)
[2020-07-17 08:53] LABS: Oxygen Device HHFNC
[2020-07-17 09:34] LABS: Glucose Point of Care 175 mg/dL (70-110)
[2020-07-17] MEDS: enoxaparin 60 mg/0.6 mL Syringe SUBCUT (10:04)
[2020-07-17] MEDS: linezolid premix 600 MG/300 ML PREMIX 300 MG IV ×2 (10:51→21:14)
[2020-07-17 11:22] LABS: Glucose Point of Care 165 mg/dL (70-110)
--- NOTE | 2020-07-17 11:50 | P.PN_ITS ---
Subjective Subjective: Interval history: This morning patient was examined multiple times, overnight she did have agitation episodes, required Ativan, was on a Precedex drip, Precedex drip has been weaned off due to sinus bradycardia, she does respond to sternal rub, does open her eyes, does say a few words, but does not really follow commands, currently on high flow oxygen, chest x-ray shows a ppearance of acute respiratory distress syndrome, some pulmonary edema, did diurese over 3 L yesterday, looks a bit dry this morning I spoke to patient's about patient's current condition, currently he is in the viral ICU with his , he was extubated yesterday, he just nods his head when I told him the names, I do not know if he understands and/or comprehensive 's current condition, I do not feel that he can come to an informed decision about her care currently, but this can change as his condition improves, patient's is her first healthcare power of admitted attorneys I had a discussion with patient's second and third DURABLE POWER OF COIN MACHINE COLLECTOR SUPERVISOR, Stoney I updated Stoney concerning about patient's current condition, she has acute respiratory distress syndrome secondary to COVID-19 pneumonia and secondary bacterial pneumonia, NSTEMI, A. fib with rate controlled, she has high oxygen requirements, given her history of CABG, severe pulmonary hypertension, her likelihood of meaningful recovery if she were to be intubated is fairly unlikely, and if she were to go into cardiac arrest, the likelihood of her having a meaningful recovery is fairly unlikely After review of her DURABLE POWER OF COIN MACHINE COLLECTOR SUPERVISOR paperwork, what I can glean from it is is that in her own words she says that if the physician feels that I do not have a significant chance of meaningful recovery to withhold life-sustaining measures such as CPR and mechanical ventilation, I went over this in extensive detail with family, I feel that through her own voice she is saying that if she does not have a chance of meaningful recovery, to not pursue aggressive interventions. Right now, based on her clinical condition, based upon the DURABLE POWER OF COIN MACHINE COLLECTOR SUPERVISOR paperwork, I think she would tell us to not pursue aggressive interventions given her current state Nonetheless I went over this in detail with both DURABLE POWER OF COIN MACHINE COLLECTOR SUPERVISOR Stoney. After discussion of the risks and benefits, they voiced understanding, all questions answered, agreed to proceed today with her mother DNR and DNI, above all they do not want to pursue aggressive interventions, but overall they want her to remain as comfortable as possible they do not want her to suffer I advised patient patient's family that I do not feel that we should give up on her too soon, her morning ABG is reasonable on high flow, we have diuresed over 3 L, she remains stable but critical right now on high flow, she is on broad- spectrum antibiotic therapy, which should give her some time to see if she were to recover, above also will emphasize comfort, if she struggles to breathe we can always give her morphine or Ativan, if I feel that she starts to clinically deteriorate then we can certainly start comfort care measures after discussion with family, but for now I would continue our medical interventions and hopefully she can pull through, all parties voiced recently, all questions answered, agreed to proceed Vitals/I&O/Wt Last Vital Signs Temp 93.7 F L 07/17/20 11:31 Pulse 68 07/17/20 11:40 Resp 18 07/17/20 11:40 BP 122/68 07/17/20 01:00 Pulse Ox 97 07/17/20 11:40 07/16/20 07/17/20 07/17/20 22:59 06:59 14:59 Intake Total 562.915 / 1262.915 273 / 1535.915 100 / 100 Output Total 1400 / 1850 500 / 2350 350 / 350 Balance -837.085 / -587.085 -227 / -814.085 -250 / -250 Physical Exam Const: COMMON NORMALS: no acute distress EXAM LIMITATIONS: altered mental status GENERAL APPEARANCE: lethargic and ill appearing NUTRITIONAL APPEARANCE: thin ORIENTATION/CONSCIOUSNESS: Yes awake, Yes confused and Yes lethargic; not oriented to person, not oriented to place and not oriented to time HENMT: COMMON NORMALS: normocephalic HEAD & SCALP: normocephalic Neck/C-Spine: COMMON NORMALS: no JVD Resp: COMMON NORMALS: normal respiratory effort, No retractions and No use of accessory muscles AUSCULTATION: crackles, rhonchi and wheezes Cardio: COMMON NORMALS: no JVD, regular rate, regular rhythm, S1 normal heart sound present and S2 normal heart sound present RATE: regular rate RHYTHM: regular rhythm HEART SOUNDS: S1 normal heart sound present and S2 normal heart sound present GI: COMMON NORMALS: Normal to inspection, nondistended, normoactive bowel sounds present, Soft to palpation, non-tender, No hepatosplenomegaly present, no masses and no bruits PALPATION: Yes Soft to palpation and Yes No hepatosplenomegaly present Extremity: COMMON NORMALS: capillary refill normal, no clubbing, cyanosis or edema, no calf tenderness and no pedal edema Neuro: SENSORIUM/ORIENTATION: No oriented to person, No oriented to place, No oriented to time and Yes lethargic Urinary Catheter Management^: Best: Cath Placed During This Visit: yes Reason for Continuing Indwelling Catheter: Accurate Measurement of Urinary Output in Critically Ill Patients Urinary Catheter Date of Insertion: 07/15/20 Urinary Catheter Time of Insertion: 12:10 Data : 07/17/20 03:00 07/17/20 03:00 Micro: Microbiology 07/15/20 03:10 Urine Culture - Preliminary Urine,Clean Catch A&P Assessment and plan (1) Acute respiratory failure with hypoxia: -Risk factors include CHF, CABG, CAD, COPD, exposure to secondhand smoking -With acute respiratory distress syndrome -Secondary to COVID-19 pneumonia -With secondary bacterial pneumonia -With DIC, positive fibrin degradation products, D-dimer 6.64, INR 3.31, PT PTT elevated -Chest x-ray shows worsening bilateral infiltrates, concerning for developing acute respiratory distress syndrome and/[place] [address], creatinine 1.9, diuresed over 3 L yesterday Plan: -Currently DNR/DNI, DURABLE POWER OF COIN MACHINE COLLECTOR SUPERVISOR paperwork in place, first decision maker is , second is Shaun, there is Polina -Status is critical, prognosis is guarded - viral ICU -Continue heated high flow, BiPAP as needed -Decadron 6 mg IV push daily -Remdesivir patient has finished course -Unfortunately ER did not obtain blood cultures, urine cultures, sputum cultures, before antibiotics were given -Follow blood cultures, urine cultures sputum cultures, sputum cultures, MRSA -Continue continue Primaxin, azithromycin, switch out Zyvox for vancomycin given elevated creatinine -Hold Lasix therapy for today, will give a 500 cc bolus -Albuterol, Advair -Oxygen therapy -Daily EKGs -Daily inflammatory markers -Hemoglobin 8.4, INR 3.31, continue to monitor hemoglobin -Therapeutic Lovenox for DVT prophylaxis and PE prophylaxis continue today -Protonix for GI prophylaxis Status: Acute (2) Sepsis: Status: Acute (3) Pneumonia due to COVID-19 virus: Status: Acute (4) Lactic acidosis: -Resolved Status: Acute (5) Transaminitis: Secondary to COVID-19 Status: Acute (6) NSTEMI (non-ST elevated myocardial infarction): -Has complaints of pleuritic chest pain -History of CABG x4, CAB x6 -Baseline troponin pending 42, unfortunately troponin series was not drawn, will have to redraw -EKG shows lateral ST depressions -Likely type II secondary to acute respiratory failure and COVID-19 -Echocardiogram shows an EF of 50%, grade 3 out of 4 diastolic dysfunction, mild diffuse hypokinesia of the septum and basal inferior wall segments, severely elevated filling pressures, moderately increased left atrial size, moderate mitral valve regurg, moderate mild tricuspid valve regurg, moderate pulmonary hypertension 67 mmHg -Possible myopericarditis PLAN: -Serial EKGs, serial troponins, monitor for chest pain -Aspirin, Plavix, statin, bsystolic -Spoke to cardiology, no urgent need for stress testing or cardiac cath, likely will require outpatient follow-up Status: Acute (7) Atrial fibrillation: -EKG shows A. fib, telemetry shows A. fib, rate is controlled -Therapeutic Lovenox -Continue the bsystolic -Telemetry monitoring -Likely from COVID-19 pneumonia, acute respiratory failure Status: Acute (8) Acute kidney injury: -Creatinine 1.9 -Continue to monitor, baseline 1.4-5 Status: Acute (9) Hyponatremia: Hypovolemic hyponatremia, resolved Status: Acute (10) Syncope: Sounds like true syncopal episode 2 weeks ago Unsure if it is related to Covid symptoms Echocardiogram as above Carotid ultrasound shows: Moderate to heavy heterogeneous plaques at the bifurcations and internal carotid arteries bilaterally, suggestive of 50 to 79% . Intimal thickening and minimal plaques in the common carotid arteries bilaterally. Elevated velocity in the left external carotid artery, may suggest hemodynamically significant stenosis -Findings are concerning for symptomatic carotids, will require a CTA of the head and neck once creatinine has stabilized CT of the head negative for acute hemorrhage, acute stroke, subdural hematoma Telemetry monitoring does show A. fib events, EKG shows A. fib, lateral ST depressions Cannot rule out cardiac etiology, continue telemetry monitoring Status: Acute (11) Dehydration: Status: Acute (12) GERD (gastroesophageal reflux disease): Status: Acute (13) Hypertension: Status: Acute (14) Hypothyroidism: Continue levothyroxine Status: Acute (15) Insulin dependent type 2 diabetes mellitus: Low blood sugars overnight, NPH 7030 on hold, continue low-dose sliding scale as needed Status: Acute (16) CHF (congestive heart failure): Status: Acute (17) CAD (coronary artery disease): Status: Acute Qualifiers: Coronary Disease-Associated Artery/Lesion type: bypass graft [place] vs. transplanted heart: [place] heart Associated angina: without angina Qualified Code(s): I25.810 - Atherosclerosis of coronary artery bypass graft(s) without angina pectoris (18) Hx of CABG: Status: Acute (19) COPD (chronic obstructive pulmonary disease): Status: Acute (20) Acute respiratory distress syndrome: Status: Acute (21) DIC (disseminated intravascular coagulation): Status: Acute Additional A&P Information Plan for today continue high flow, hold Lasix therapy, gentle hydration, Ativan and morphine for anxiety and air hunger, if patient clinically starts to deteriorate, will pursue full comfort care measures, family is in agreement, voiced understanding, all questions answered, agreed to proceed Attestations Medical Necessity Statement*: Patient requires hospitalization for acute respiratory distress syndrome, COVID-19 pneumonia, secondary bacterial pneumonia, DIC, A. fib Coding Level of Care Code Acute Ticket Maker for [facility] Fwd Diagnoses Acute respiratory failure with hypoxia J96.01 Sepsis A41.9 Pneumonia due to COVID-19 virus U07.1; J12.89 Lactic acidosis E87.2 Transaminitis R74.01 NSTEMI (non-ST elevated myocardial infarction) I21.4 Atrial fibrillation I48.91 Acute kidney injury N17.9 Hyponatremia E87.1 Syncope R55 Dehydration E86.0 GERD (gastroesophageal reflux disease) K21.9 Hypertension I10 Hypothyroidism E03.9 Insulin dependent type 2 diabetes mellitus E11.9; Z79.4 CHF (congestive heart failure) I50.9 CAD (coronary artery disease) I25.810 Coronary Disease-Associated Artery/Lesion type: bypass graft [place] vs. transplanted heart: [place] heart Associated angina: without angina Hx of CABG Z95.1 COPD (chronic obstructive pulmonary disease) J44.9 Acute respiratory distress syndrome J80 DIC (disseminated intravascular coagulation) D65
[2020-07-17] MEDS: azithromycin 500 MG in sodium chloride 0.9% 250 ML 250 MG IV (12:08)
--- NOTE | 2020-07-17 14:30 | PC.NURSE ---
Patient's temperature was 96.8. But it was taken axillary. I went in to take it rectally and it was 93.7. Placed bear hugger and rechecked temp and it was 94.4. MD is aware and will continue to warm. Continue to monitor closely.
--- NOTE | 2020-07-17 15:12 | PC.OT ---
OT note: Discussed with nursing, pt on hold at this time.
--- NOTE | 2020-07-17 15:58 | DCPLANNER ---
Phoned Pt's Daughter; Polina, [phone] - she understands and appreciates the call, encouraged her to call if she has any further questions etc.
[2020-07-17 16:03] LABS: Basophils % 0.1 %; Hematocrit 26.7 % (37.0-47.0); Hemoglobin 8.5 g/dL (11.5-15.3); Lymphocytes # 1.3 10^3/uL (0.8-4.8); Lymphocytes % 13.4 %; Mean Corpuscular HGB Conc 31.8 g/dL (30.0-36.0); Mean Corpuscular Hemoglobin 34.3 pg (28.0-34.0); Mean Corpuscular Volume 107.7 fL (81-99); Mean Platelet Volume 11.8 fL (7.4-10.4); Monocytes # 0.4 10^3/uL (0.2-0.9); Monocytes % 4.2 %; Neutrophils # 7.91 10^3/uL (1.8-7.7); Neutrophils % 80.5 %; Nucleated Red Blood Cells # 0.1 /100WBC; Nucleated Red Blood Cells % 0.5 %; Platelet Count 143 10^3/cmm (130-400); Red Blood Count 2.48 10^6/uL (4.1-5.3); Red Cell Distribution Width 15.5 % (12.1-15.1); White Blood Count 9.8 10^3/uL (4.0-10.0)
[2020-07-17 16:16] LABS: Glucose Point of Care 165 mg/dL (70-110)
[2020-07-17 16:28] LABS: INR 3.59 (0.8-1.2)
[2020-07-17] MEDS: pantoprazole 40 mg SDV IVP (16:43)
[2020-07-17] MEDS: LORazepam 2 mg/mL INJ 1 mL 1 MG IVP ×2 (17:16→22:19)
--- NOTE | 2020-07-17 17:48 | PC.NURSE ---
2nd witness for blood transfusion RASHIDA Guillen
[2020-07-17] MEDS: albuterol 8 gm MDI 2 PUFF INHALATION (19:54)
[2020-07-17 19:55] LABS: Glucose Point of Care 144 mg/dL (70-110)
--- NOTE | 2020-07-17 20:14 | PC.NURSE ---
Physician Notified During assessment crackles noted to all lung garcia. First unit of RBC's about to finish. Notified Dr. Siu at this time for crackles and history of chf. Orders to give 40 of IV lasix one time. Orders were received to hold the 2nd unit of RBC's and both units of FFP's for now. H&H to be drawn after 1st of blood completed. Dayshift nurse had reported an isolated bleeding/clot episode today. No concerns with HR or BP today.
[2020-07-17] MEDS: FUROsemide 10 mg/mL SDV 4mL 40 MG IVP (20:38)
[2020-07-17] MEDS: dexmedetomidine 400 MCG in sodium chloride 0.9% (100 ml) 100 ML IV (22:23)
[2020-07-17 22:28] LABS: Hematocrit 29.2 % (37.0-47.0); Hemoglobin 9.6 g/dL (11.5-15.3)
[2020-07-17] MEDS: lanolin oint 7 gm 1 APPLIC TOPICAL (22:30)
[2020-07-18] VITALS (68 sets, daily range): BP systolic 126–165; BP diastolic 55–120; PULSE 51–76; RESP 18–28; TEMP 36.1–37.3; O2SAT 84–94
[2020-07-18 00:54] LABS: Hemoglobin 9.6 g/dL (11.5-15.3)
[2020-07-18] MEDS: pantoprazole 40 mg SDV IVP ×2 (02:49→15:54)
[2020-07-18 05:09] LABS: INR 3.07 (0.8-1.2)
[2020-07-18 05:21] LABS: D Dimer 10.41 ug/mIFEU (0-0.59)
[2020-07-18 06:07] LABS: Basophils % 0.2 %; Hematocrit 30.2 % (37.0-47.0); Hemoglobin 9.9 g/dL (11.5-15.3); Lymphocytes # 1.1 10^3/uL (0.8-4.8); Lymphocytes % 10.1 %; Mean Corpuscular HGB Conc 32.8 g/dL (30.0-36.0); Mean Corpuscular Hemoglobin 32.1 pg (28.0-34.0); Monocytes # 0.3 10^3/uL (0.2-0.9); Monocytes % 3.2 %; Neutrophils # 8.74 10^3/uL (1.8-7.7); Neutrophils % 83.5 %; Nucleated Red Blood Cells # 0.1 /100WBC; Platelet Count 127 10^3/cmm (130-400); Red Blood Count 3.08 10^6/uL (4.1-5.3); Red Cell Distribution Width 21.2 % (12.1-15.1); White Blood Count 10.5 10^3/uL (4.0-10.0)
[2020-07-18 06:10] LABS: Mean Corpuscular Volume 98.1 fL (81-99)
[2020-07-18 06:10] LABS: Glucose Point of Care 123 mg/dL (70-110)
[2020-07-18 06:28] LABS: Glucose Point of Care 127 mg/dL (70-110)
[2020-07-18 06:40] LABS: Alanine Aminotransferase 30 U/L (0-33); Albumin Level 3.3 g/dL (3.5-5.2); Alkaline Phosphatase 117 IU/L (35-105); Anion Gap 21.6 (5-19); Aspartate Amino Transferase 62 U/L (0-32); Blood Urea Nitrogen 64 mg/dL (8-23); C Reactive Protein 51.8 mg/L (0.0-4.9); Calcium 8.1 mg/dL (8.5-10.5); Carbon Dioxide 17 mmol/L (22-29); Chloride 115 mmol/L (98-107); Globulin 2.2 g/dL (1.3-4.6); Glucose 120 mg/dL (65-115); Magnesium 2.4 mg/dL (1.7-2.3); Osmolality Calculated 328 mOsm/kg (285-295); Phosphorus 4.3 mg/dL (2.5-4.5); Potassium 4.6 mmol/L (3.5-5.1); Sodium 149 mmol/L (136-145); Total Bilirubin 1.3 mg/dL (0.15-1.2); Total Protein 5.5 g/dL (6.6-8.7)
[2020-07-18 06:41] LABS: Lactic Sepsis W/Reflex 1.8 mmol/L (0.5-2.2)
[2020-07-18 06:52] LABS: NT Pro B Type Natriuretic Pept 13099 pg/mL (0-450); Procalcitonin 1.02 ng/mL (0-0.5)
--- NOTE | 2020-07-18 07:00 | XR_ITS ---
WS: [id number] Exam: XR chest 1V portable [id number] Date/Time of Exam: 07/18/2020 7:00 AM Reason For Exam: sob Comparison 07/17/2020. Extensive bilateral consolidating pulmonary infiltrates are noted. Infiltrates have increased in the upper left lung zone since previous study but no other change. Heart size is stable. No pneumothorax or pleural effusion. Status post CABG surgery. Bony structures are intact. The mediastinum is not wid ened. Large hiatal hernia. XR/XR chest 1V portable [id number] IMPRESSION: 1. Extensive consolidating infiltrates throughout both lungs. Infiltrates in th e upper left lung zone have worsened since previous study. No other change.
[2020-07-18 07:02] LABS: Creatine Phosphokinase 130 U/L (26-192)
[2020-07-18] MEDS: insulin aspart 70/30 100 units/1 mL 7 UNIT SUBCUT ×2 (07:07→18:09)
[2020-07-18] MEDS: dexamethasone 4 mg/mL INJ 6 MG IVP (09:29)
[2020-07-18] MEDS: linezolid premix 600 MG/300 ML PREMIX 300 MG IV ×2 (09:29→21:17)
[2020-07-18] MEDS: sodium chloride 0.9% 500 ML 75 ML IV (09:57)
[2020-07-18] MEDS: LORazepam 2 mg/mL INJ 1 mL 1 MG IVP (10:49)
[2020-07-18 11:35] LABS: Glucose Point of Care 143 mg/dL (70-110)
--- NOTE | 2020-07-18 12:44 | PM.PN ---
Subjective Subjective: Interval history: Overnight patient's units of FFP, 1 unit of PRBC were held due to concerns for fluid overload, she did have an episode of bleeding overnight, this morning she is minimally responsive, she does periodically open her eyes, say a couple words, afebrile overnight, normotensive, remains on high flow Vitals/I&O/Wt Last Vital Signs Temp 98.8 F 07/18/20 08:00 Pulse 71 07/18/20 11:07 Resp 24 H 07/18/20 11:07 BP 143/74 07/18/20 11:00 Pulse Ox 91 07/18/20 11:07 07/17/20 07/18/20 07/18/20 22:59 06:59 14:59 Intake Total 919.245 / 1669.245 28.185 / 1697.430 148.51 / 148.51 Output Total 550 / 1050 650 / 1700 Balance 369.245 / 619.245 -621.815 / -2.570 148.51 / 148.51 Physical Exam Const: COMMON NORMALS: no acute distress EXAM LIMITATIONS: altered mental status GENERAL APPEARANCE: ill appearing and frail appearing NUTRITIONAL APPEARANCE: thin ORIENTATION/CONSCIOUSNESS: Yes awake and Yes confused; not oriented to person, not oriented to place and not oriented to time HENMT: COMMON NORMALS: normocephalic HEAD & SCALP: normocephalic Neck/C-Spine: COMMON NORMALS: no JVD Resp: COMMON NORMALS: normal respiratory effort, No retractions and No use of accessory muscles AUSCULTATION: crackles and rales Cardio: COMMON NORMALS: no JVD, regular rate, regular rhythm, S1 normal heart sound present and S2 normal heart sound present RATE: regular rate RHYTHM: regular rhythm HEART SOUNDS: S1 normal heart sound present and S2 normal heart sound present GI: COMMON NORMALS: Normal to inspection, nondistended, normoactive bowel sounds present, Soft to palpation, non-tender, No hepatosplenomegaly present, no masses and no bruits PALPATION: Yes Soft to palpation and Yes No hepatosplenomegaly present Extremity: COMMON NORMALS: capillary refill normal, no clubbing, cyanosis or edema, no calf tenderness and no pedal edema Neuro: SENSORIUM/ORIENTATION: No oriented to person, No oriented to place and No oriented to time Psych: COMMON NORMALS: mental status grossly normal Urinary Catheter Management^: Best: Cath Placed During This Visit: yes Reason for Continuing Indwelling Catheter: Accurate Measurement of Urinary Output in Critically Ill Patients Urinary Catheter Date of Insertion: 07/15/20 Urinary Catheter Time of Insertion: 12:10 Data : 07/18/20 04:20 07/18/20 04:20 Micro: Microbiology 07/15/20 03:10 Urine Culture - Final Urine,Clean Catch 07/17/20 12:55 MRSA Culture - Final Nose A&P Assessment and plan (1) Acute respiratory failure with hypoxia: -Risk factors include CHF, CABG, CAD, COPD, exposure to secondhand smoking -With acute respiratory distress syndrome -Secondary to COVID-19 pneumonia -With secondary bacterial pneumonia -With DIC, positive fibrin degradation products, D-dimer 10.4, INR 3.07, PT PTT elevated -Chest x-ray shows worsening bilateral infiltrates, concerning for developing acute respiratory distress syndrome and/[place] [address], creatinine 1.9, diuresed over 3 L yesterday Plan: -Currently DNR/DNI, DURABLE POWER OF SITE HEAD paperwork in place, first decision maker is , second is Shaun, there is Polina -Status is critical, prognosis is guarded - viral ICU -Continue heated high flow, BiPAP as needed -Decadron 6 mg IV push daily -Remdesivir patient has finished course -Unfortunately ER did not obtain blood cultures, urine cultures, sputum cultures, before antibiotics were given -Follow blood cultures, urine cultures sputum cultures, sputum cultures, MRSA -Continue continue Primaxin, azithromycin, Zyvox -Lungs have crackles secondary to acute respiratory distress syndrome, not pulmonary edema, I would hold off on giving her any more Lasix given her creatinine 1.9, serum sodium 49, as patient is becoming dehydrated, insensible losses secondary acute respiratory failure, she has a negative balance -Hematochezia secondary to lower GI bleed and/or DIC, has lost roughly 2 units of blood, 1 unit PRBC was given, 1 unit on hold, FFP was not given overnight, will give this morning, monitor hemoglobin closely, monitor INR, monitor for worsening bleeding, monitor for DIC -Albuterol, Advair -Oxygen therapy -Daily EKGs -Daily inflammatory markers -Hemoglobin 9.9, INR 3.07, D-dimer 10.41 -Therapeutic Lovenox for DVT prophylaxis and PE prophylaxis on hold given GI bleed -Protonix for GI prophylaxis, 40 mg IV twice daily Plan for today: Continue high flow, avoid diuresis, will give gentle fluid bolus, monitor hemoglobin, monitor for rectal bleeding if so we will transfuse and FFP, continue antibiotics, continue to monitor respiratory status Status: Acute (2) Sepsis: Status: Acute (3) Pneumonia due to COVID-19 virus: Status: Acute (4) Lactic acidosis: -Resolved Status: Acute (5) Transaminitis: Secondary to COVID-19 Status: Acute (6) NSTEMI (non-ST elevated myocardial infarction): -Has complaints of pleuritic chest pain -History of CABG x4, CAB x6 -Baseline troponin pending 42, unfortunately troponin series was not drawn, will have to redraw -EKG shows lateral ST depressions -Likely type II secondary to acute respiratory failure and COVID-19 -Echocardiogram shows an EF of 50%, grade 3 out of 4 diastolic dysfunction, mild diffuse hypokinesia of the septum and basal inferior wall segments, severely elevated filling pressures, moderately increased left atrial size, moderate mitral valve regurg, moderate mild tricuspid valve regurg, moderate pulmonary hypertension 67 mmHg -Possible myopericarditis PLAN: -Serial EKGs, serial troponins, monitor for chest pain -Aspirin, Plavix, on hold given GI bleed and DIC -Continue statin -Spoke to cardiology, no urgent need for stress testing or cardiac cath, likely will require outpatient follow-up Status: Acute (7) Atrial fibrillation: -EKG shows A. fib, telemetry shows A. fib, rate is controlled -Therapeutic Lovenox on hold -Continue the bsystolic -Telemetry monitoring -Likely from COVID-19 pneumonia, acute respiratory failure Status: Acute (8) Acute kidney injury: -Creatinine 1.9 -Continue to monitor, baseline 1.4-5 Status: Acute (9) Hyponatremia: Hypovolemic hyponatremia, resolved Status: Acute (10) Syncope: Sounds like true syncopal episode 2 weeks ago Unsure if it is related to Covid symptoms Echocardiogram as above Carotid ultrasound shows: Moderate to heavy heterogeneous plaques at the bifurcations and internal carotid arteries bilaterally, suggestive of 50 to 79% . Intimal thickening and minimal plaques in the common carotid arteries bilaterally. Elevated velocity in the left external carotid artery, may suggest hemodynamically significant stenosis -Findings are concerning for symptomatic carotids, will require a CTA of the head and neck once creatinine has stabilized CT of the head negative for acute hemorrhage, acute stroke, subdural hematoma Telemetry monitoring does show A. fib events, EKG shows A. fib, lateral ST depressions Cannot rule out cardiac etiology, continue telemetry monitoring Status: Acute (11) Dehydration: Status: Acute (12) GERD (gastroesophageal reflux disease): Status: Acute (13) Hypertension: Status: Acute (14) Hypothyroidism: Continue levothyroxine Status: Acute (15) Insulin dependent type 2 diabetes mellitus: Low blood sugars overnight, NPH 7030 on hold, continue low-dose sliding scale as needed Status: Acute (16) CHF (congestive heart failure): Status: Acute (17) CAD (coronary artery disease): Status: Acute Qualifiers: Associated angina: without angina Coronary Disease-Associated Artery/Lesion type: bypass graft [place] vs. transplanted heart: [place] heart Qualified Code(s): I25.810 - Atherosclerosis of coronary artery bypass graft(s) without angina pectoris (18) Hx of CABG: Status: Acute (19) COPD (chronic obstructive pulmonary disease): Status: Acute (20) Acute respiratory distress syndrome: Status: Acute (21) DIC (disseminated intravascular coagulation): Status: Acute (22) Hematochezia: Status: Acute Additional A&P Information Plan for today continue high flow, hold Lasix therapy, gentle hydration, Ativan and morphine for anxiety and air hunger, if patient clinically starts to deteriorate, will pursue full comfort care measures, family is in agreement, voiced understanding, all questions answered, agreed to proceed Attestations Medical Necessity Statement*: Patient requires hospitalization for acute respiratory failure secondary to COVID-19, acute respiratory distress syndrome, GI bleed Coding Level of Care Code Acute Primary Substance Abuse Counselor for [facility] Fwd Exam Comprehensive Diagnoses Acute respiratory failure with hypoxia J96.01 Sepsis A41.9 Pneumonia due to COVID-19 virus U07.1; J12.89 Lactic acidosis E87.2 Transaminitis R74.01 NSTEMI (non-ST elevated myocardial infarction) I21.4 Atrial fibrillation I48.91 Acute kidney injury N17.9 Hyponatremia E87.1 Syncope R55 Dehydration E86.0 GERD (gastroesophageal reflux disease) K21.9 Hypertension I10 Hypothyroidism E03.9 Insulin dependent type 2 diabetes mellitus E11.9; Z79.4 CHF (congestive heart failure) I50.9 CAD (coronary artery disease) I25.810 Associated angina: without angina Coronary Disease-Associated Artery/Lesion type: bypass graft [place] vs. transplanted heart: [place] heart Hx of CABG Z95.1 COPD (chronic obstructive pulmonary disease) J44.9 Acute respiratory distress syndrome J80 DIC (disseminated intravascular coagulation) D65 Hematochezia K92.1
[2020-07-18] MEDS: azithromycin 500 MG in sodium chloride 0.9% 250 ML 250 MG IV (14:22)
--- NOTE | 2020-07-18 14:41 | PC.OT ---
OT note: Discussed with nursing and will hold patient at this time.
--- NOTE | 2020-07-18 16:00 | PC.NURSE ---
I have told MD Mosquera numerous times that I am unable to get patients labs. I have told him for days now. Lab has come to draw yesterday but they had to stick her numerous times as well. I asked for a PICC line for access and to be able to draw her labs and he disagreed with PICC and asked Randy to come and put in 2 20g IV's with the ultrasound. He was successful. I have still had trouble drawing labs and is reminded. Lab did not respond when I tried to call them and let them know about trying to draw patients labs again.
[2020-07-18 16:42] LABS: Glucose Point of Care 174 mg/dL (70-110)
[2020-07-18 20:38] LABS: Glucose Point of Care 181 mg/dL (70-110)
[2020-07-19] VITALS (107 sets, daily range): BP systolic 97–188; BP diastolic 46–101; PULSE 45–90; RESP 15–36; TEMP 32.1–36.9; O2SAT 87–95
[2020-07-19] MEDS: LORazepam 2 mg/mL INJ 1 mL 1 MG IVP ×3 (00:24→20:47)
[2020-07-19] MEDS: hyDRALAzine 20 mg/mL INJ 1 mL 10 MG IVP (00:57)
--- NOTE | 2020-07-19 01:06 | PC.NURSE ---
New Order: Patient SBP was noted to be on upward of 180-200's, with DBP at 110-120's. MD air pollution analyst notified of changes in her recent medication history, as well as patient overall condition. MD air pollution analyst submitted new orders for Hydralazine IVP ONCE. After administration of IVP, patient HR was trending in low 40's for about 10-15 mins, but has since stabilized in the 60-70's. SBP fluctuating between 170's-180's. Continuing to monitor closely.
[2020-07-19] MEDS: OLANZapine 10 mg VIAL 5 MG IM ×2 (01:44→08:31)
[2020-07-19] MEDS: dexmedetomidine 400 MCG in sodium chloride 0.9% (100 ml) 100 ML 6.6 MCG IV (02:30)
[2020-07-19] MEDS: nitroglycerin 1 gm/inch oint Pkt 0.5 INCH TOPICAL (03:15)
[2020-07-19] MEDS: pantoprazole 40 mg SDV IVP ×2 (04:03→15:34)
[2020-07-19 04:17] LABS: Blood Gas Sample Site Brachial, left; Blood Gas Sample Type Arterial
[2020-07-19 05:04] LABS: Lactic Sepsis W/Reflex 2.2 mmol/L (0.5-2.2)
[2020-07-19 05:44] LABS: Basophils # 0.1 10^3/uL (0.0-0.1); Basophils % 0.5 %; Hematocrit 30.5 % (37.0-47.0); Lymphocytes # 0.9 10^3/uL (0.8-4.8); Lymphocytes % 8.4 %; Mean Corpuscular HGB Conc 32.8 g/dL (30.0-36.0); Mean Corpuscular Hemoglobin 32.1 pg (28.0-34.0); Mean Corpuscular Volume 97.8 fL (81-99); Mean Platelet Volume 12.3 fL (7.4-10.4); Monocytes # 0.4 10^3/uL (0.2-0.9); Monocytes % 3.6 %; Neutrophils # 8.73 10^3/uL (1.8-7.7); Neutrophils % 83.8 %; Nucleated Red Blood Cells # 0.1 /100WBC; Nucleated Red Blood Cells % 0.8 %; Platelet Count 112 10^3/cmm (130-400); Red Blood Count 3.12 10^6/uL (4.1-5.3); Red Cell Distribution Width 20.6 % (12.1-15.1); White Blood Count 10.4 10^3/uL (4.0-10.0)
[2020-07-19 05:54] LABS: INR 2.35 (0.8-1.2)
[2020-07-19 05:55] LABS: Fibrinogen 291 mg/dL (174-498)
[2020-07-19 06:05] LABS: D Dimer 12.26 ug/mIFEU (0-0.59)
[2020-07-19 06:23] LABS: NT Pro B Type Natriuretic Pept 10046 pg/mL (0-450)
[2020-07-19] MEDS: insulin aspart 70/30 100 units/1 mL 7 UNIT SUBCUT ×2 (06:23→17:12)
[2020-07-19 06:27] LABS: Glucose Point of Care 161 mg/dL (70-110)
[2020-07-19 06:29] LABS: Alanine Aminotransferase 25 U/L (0-33); Albumin Level 3.2 g/dL (3.5-5.2); Alkaline Phosphatase 113 IU/L (35-105); Anion Gap 19.3 (5-19); Aspartate Amino Transferase 48 U/L (0-32); Blood Urea Nitrogen 61 mg/dL (8-23); C Reactive Protein 102.9 mg/L (0.0-4.9); Calcium 8.6 mg/dL (8.5-10.5); Carbon Dioxide 20 mmol/L (22-29); Chloride 116 mmol/L (98-107); Globulin 3.1 g/dL (1.3-4.6); Glucose 151 mg/dL (65-115); Magnesium 2.5 mg/dL (1.7-2.3); NT Pro B Type Natriuretic Pept 10309 pg/mL (0-450); Osmolality Calculated 332 mOsm/kg (285-295); Phosphorus 3.9 mg/dL (2.5-4.5); Potassium 4.3 mmol/L (3.5-5.1); Procalcitonin 2.12 ng/mL (0-0.5); Sodium 151 mmol/L (136-145); Total Bilirubin 1.3 mg/dL (0.15-1.2); Total Protein 6.3 g/dL (6.6-8.7)
[2020-07-19 06:36] LABS: Reflex Lactate Order REFLEX LACTIC ORDERD
[2020-07-19 06:40] LABS: Creatine Phosphokinase 63 U/L (26-192)
--- NOTE | 2020-07-19 06:43 | PC.NURSE ---
Shift Summary: Patient has had some noticeable increased events of agitation. IVP Ativan, IM Zyprexa, and Precedex drip used as calming measures. Left eye bruising now in different staging of coloring that seems to be spreading across forehead area. Left lower arm edema has decreased but still occasional weeping.Arm is placed at elevation with chucks placed underneath. Sinus Bradycardia noted to start around 0600. MD convex grinder operator notified of Bradycardia. No new orders were received. SBP continued to rise despite Hydralazine and Ativan IVP. New orders given by MD Salbador convex grinder operator for nurse to apply Nitro paste to chest. SBP maintaining between 160-180's. DBP 70-110. Precedex 0.2mcg/kg/hr (see mar flowsheet) 650 u/o Report given to oncoming shift RN
--- NOTE | 2020-07-19 07:00 | XR_ITS ---
WS: [id number] Exam: XR chest 1V portable [id number] Date/Time of Exam: 07/19/2020 7:00 AM Reason For Exam: sob Comparison 07/18/2020. Extensive consolidating infiltrates in both lungs. Only slight improvement since prior study. The steven gs are fully expanded. No pleural effusions. Heart size is unchanged. Large hiatal hernia again noted . XR/XR chest 1V portable [id number] IMPRESSION: 1. Extensive consolidating bilateral pulmonary infiltrates. Slight improvement since prior study.
[2020-07-19] MEDS: dexamethasone 4 mg/mL INJ 6 MG IVP (08:30)
[2020-07-19] MEDS: morphine 4 mg/mL SDV 1 mL 1 MG IVP ×2 (08:32→23:41)
[2020-07-19] MEDS: linezolid premix 600 MG/300 ML PREMIX 300 MG IV ×2 (08:57→21:12)
[2020-07-19] MEDS: amlodipine 10 mg Tablet PO (08:58)
[2020-07-19] MEDS: dicyclomine 10 mg Capsule PO ×2 (08:58→16:01)
[2020-07-19] MEDS: ascorbic acid 500 mg Tablet PO ×2 (08:58→16:00)
[2020-07-19] MEDS: potassium chloride ER 10 mEq Tablet 20 MEQ PO (08:58)
[2020-07-19] MEDS: isosorbide mononitrate ER 60 mg Tablet 120 MG PO (08:59)
[2020-07-19] MEDS: levothyroxine 125 mcg Tablet PO (09:00)
[2020-07-19] MEDS: atorvastatin 40 mg Tablet 20 MG PO (09:01)
[2020-07-19] MEDS: ferrous sulfate EC 325 mg Tablet 650 MG PO (09:01)
[2020-07-19] MEDS: hyDRALAzine 10 mg Tablet PO ×3 (09:23→20:16)
[2020-07-19 09:53] LABS: ABG PH Result 7.44 (7.35-7.45); PO2 ABG 70.7 mmHg (80.0-100.0)
[2020-07-19 09:54] LABS: Arterial Blood Gas Hematocrit 31.3 % (37-47); Base Excess ABG -1.1 mmol/L (-2.0-2.0); HCO3 ABG 22.5 mmol/L (22-26)
[2020-07-19 11:45] LABS: Glucose Point of Care 201 mg/dL (70-110)
[2020-07-19] MEDS: azithromycin 500 MG in sodium chloride 0.9% 250 ML 250 MG IV (12:16)
--- NOTE | 2020-07-19 12:28 | XR_ITS ---
WS: [id number] Exam: XR chest 1V portable [id number] Date/Time of Exam: 07/19/2020 12:28 PM Reason For Exam: ngt placement Comparison with previous exam performed on the same day at 0530 hours. An enteric tube is been placed and extends into the stomach but the tip is is not visible. Again note d are consolidating bilateral pulmonary infiltrates which show little change. Heart size is stable. L arge hiatal hernia. XR/XR chest 1V portable [id number] IMPRESSION: 1. Enteric tube in place in the stomach. 2. Extensive bilateral consolidating infiltrates showing little change.
--- NOTE | 2020-07-19 12:34 | PC.NURSE ---
two familly members notified of patients bp issues, and placement of ngt for nutrition and meds. patient tolerated it better than expected but did have some nasal bleeding. placement confirmed through air bolus and aspirate but rt was concerned there was no xray so one was ordered. patients temp low, barehugger blanket placed. patient moaning more once warmed. but calm enough to not require precedex or ativan.
--- NOTE | 2020-07-19 13:00 | PM.PN ---
Subjective Subjective: Interval history: This morning patient was examined, she is on high flow, on 40%, 35 which is improved compared to yesterday, afebrile overnight, normotensive, normal sinus rhythm, she does open her eyes to commands, she does not really follow commands, overnight she did have episodes of agitation, requiring Precedex, this morning appearing dehydrated, urine output 1575 Vitals/I&O/Wt Last Vital Signs Temp 94.2 F L 07/19/20 12:30 Pulse 65 07/19/20 12:30 Resp 17 07/19/20 12:30 BP 132/63 07/19/20 12:30 Pulse Ox 94 07/19/20 12:30 07/18/20 07/19/20 07/19/20 22:59 06:59 14:59 Intake Total 1755 / 2003.51 251.388 / 2254.898 207.48 / 207.48 Output Total 900 / 900 675 / 1575 Balance 855 / 1103.51 -423.612 / 679.898 207.48 / 207.48 Physical Exam Const: COMMON NORMALS: alert GENERAL APPEARANCE: lethargic and ill appearing NUTRITIONAL APPEARANCE: thin ORIENTATION/CONSCIOUSNESS: Yes lethargic; not oriented to person, not oriented to place and not oriented to time HENMT: COMMON NORMALS: normocephalic HEAD & SCALP: normocephalic Eye: COMMON NORMALS: Equal, round and reactive pupils present PUPIL: Yes Equal, round and reactive pupils present Neck/C-Spine: COMMON NORMALS: no JVD Lymph: LYMPHATIC: no lymphadenopathy noted Chest: COMMONS NORMALS: normal inspection of the chest Resp: COMMON NORMALS: normal respiratory effort, No retractions and No use of accessory muscles AUSCULTATION: crackles (Crackles on exam) Cardio: COMMON NORMALS: no JVD, regular rate, regular rhythm, S1 normal heart sound present and S2 normal heart sound present RATE: regular rate RHYTHM: regular rhythm HEART SOUNDS: S1 normal heart sound present and S2 normal heart sound present GI: COMMON NORMALS: Normal to inspection, nondistended, normoactive bowel sounds present, Soft to palpation, non-tender, No hepatosplenomegaly present, no masses and no bruits PALPATION: Yes Soft to palpation and Yes No hepatosplenomegaly present Extremity: COMMON NORMALS: capillary refill normal, no clubbing, cyanosis or edema, no calf tenderness and no pedal edema Neuro: SENSORIUM/ORIENTATION: Yes alert, No oriented to person, No oriented to place, No oriented to time, Yes lethargic and Yes obtunded Urinary Catheter Management^: Best: Cath Placed During This Visit: yes Reason for Continuing Indwelling Catheter: Accurate Measurement of Urinary Output in Critically Ill Patients Urinary Catheter Date of Insertion: 07/15/20 Urinary Catheter Time of Insertion: 12:10 Data : 07/19/20 03:20 07/19/20 03:20 Micro: Microbiology 07/15/20 03:10 Urine Culture - Final Urine,Clean Catch A&P Assessment and plan (1) Acute respiratory failure with hypoxia: -Risk factors include CHF, CABG, CAD, COPD, exposure to secondhand smoking -With acute respiratory distress syndrome -Secondary to COVID-19 pneumonia -With secondary bacterial pneumonia -With DIC, resolving -Developing hypothermic episodes, bear hugger -Chest x-ray shows worsening bilateral infiltrates, concerning for developing acute respiratory distress syndrome and/or pulmonary edema, Plan: -Currently DNR/DNI, DURABLE POWER OF TRANSMITTER CHIEF paperwork in place, first decision maker is , second is Shaun, there is Polina -Status is critical, prognosis is guarded -We will readdress goals of care with patient's family today, clinically she is about the same compared to yesterday, however oxygen requirements have improved, radiographic no significant change, blood markers do look a bit better, but is dehydrated -viral ICU -Continue heated high flow, BiPAP as needed -Decadron 6 mg IV push daily -Remdesivir patient has finished course -Hypothermic episodes, bear hugger, external warming -Agitation, Precedex, avoid if heart rate less than 60, Zyprexa as needed -Unfortunately ER did not obtain blood cultures, urine cultures, sputum cultures, before antibiotics were given -Follow blood cultures, urine cultures sputum cultures, sputum cultures, MRSA -Continue continue Primaxin, azithromycin, Zyvox -Placed NG tube, Glucerna, free water flushes -Lungs have crackles secondary to acute respiratory distress syndrome, not pulmonary edema, I would hold off on giving her any more Lasix given her creatinine 1.7, serum sodium 120, as patient is becoming dehydrated, insensible losses secondary acute respiratory failure, she has an equal balance -Hematochezia secondary to lower GI bleed and/or DIC, has lost roughly 2 units of blood, 1 unit PRBC was given, 1 unit ffp, monitor hemoglobin closely, monitor INR, monitor for worsening bleeding, monitor for DIC -Albuterol, Advair -Oxygen therapy -Daily EKGs -Daily inflammatory markers -Hemoglobin 10.4, D-dimer 12.26 -Therapeutic Lovenox for DVT prophylaxis and PE prophylaxis on hold given GI bleed -Protonix for GI prophylaxis, 40 mg IV twice daily Plan for today: Continue high flow, avoid diuresis, place NG tube, start tube feedings, monitor for rectal bleeding, monitor respiratory status closely, readdress goals of care with patient's family Status: Acute (2) Sepsis: Status: Acute (3) Pneumonia due to COVID-19 virus: Status: Acute (4) Lactic acidosis: -Resolved Status: Acute (5) Transaminitis: Secondary to COVID-19 Status: Acute (6) NSTEMI (non-ST elevated myocardial infarction): -Has complaints of pleuritic chest pain -History of CABG x4, CAB x6 -Baseline troponin pending 42, unfortunately troponin series was not drawn, will have to redraw -EKG shows lateral ST depressions -Likely type II secondary to acute respiratory failure and COVID-19 -Echocardiogram shows an EF of 50%, grade 3 out of 4 diastolic dysfunction, mild diffuse hypokinesia of the septum and basal inferior wall segments, severely elevated filling pressures, moderately increased left atrial size, moderate mitral valve regurg, moderate mild tricuspid valve regurg, moderate pulmonary hypertension 67 mmHg -Possible myopericarditis PLAN: -Serial EKGs, serial troponins, monitor for chest pain -Aspirin, Plavix, on hold given GI bleed and DIC -Continue statin -Spoke to cardiology, no urgent need for stress testing or cardiac cath, likely will require outpatient follow-up Status: Acute (7) Atrial fibrillation: -EKG shows A. fib, telemetry shows A. fib, rate is controlled -Therapeutic Lovenox on hold -Continue the bsystolic -Telemetry monitoring -Likely from COVID-19 pneumonia, acute respiratory failure Status: Acute (8) Acute kidney injury: -Creatinine 1.9 -Continue to monitor, baseline 1.4-5 Status: Acute (9) Hyponatremia: Hypovolemic hyponatremia, resolved Status: Acute (10) Syncope: Sounds like true syncopal episode 2 weeks ago Unsure if it is related to Covid symptoms Echocardiogram as above Carotid ultrasound shows: Moderate to heavy heterogeneous plaques at the bifurcations and internal carotid arteries bilaterally, suggestive of 50 to 79% . Intimal thickening and minimal plaques in the common carotid arteries bilaterally. Elevated velocity in the left external carotid artery, may suggest hemodynamically significant stenosis -Findings are concerning for symptomatic carotids, will require a CTA of the head and neck once creatinine has stabilized CT of the head negative for acute hemorrhage, acute stroke, subdural hematoma Telemetry monitoring does show A. fib events, EKG shows A. fib, lateral ST depressions Cannot rule out cardiac etiology, continue telemetry monitoring Status: Acute (11) Dehydration: Status: Acute (12) GERD (gastroesophageal reflux disease): Status: Acute (13) Hypertension: Status: Acute (14) Hypothyroidism: Continue levothyroxine Status: Acute (15) Insulin dependent type 2 diabetes mellitus: Low blood sugars overnight, NPH 7030 on hold, continue low-dose sliding scale as needed Status: Acute (16) CHF (congestive heart failure): Status: Acute (17) CAD (coronary artery disease): Status: Acute Qualifiers: Coronary Disease-Associated Artery/Lesion type: bypass graft [place] vs. transplanted heart: [place] heart Associated angina: without angina Qualified Code(s): I25.810 - Atherosclerosis of coronary artery bypass graft(s) without angina pectoris (18) Hx of CABG: Status: Acute (19) COPD (chronic obstructive pulmonary disease): Status: Acute (20) Acute respiratory distress syndrome: Status: Acute (21) DIC (disseminated intravascular coagulation): Status: Acute (22) Hematochezia: Status: Acute Additional A&P Information Plan for today continue high flow, hold Lasix therapy, gentle hydration, Ativan and morphine for anxiety and air hunger, if patient clinically starts to deteriorate, will pursue full comfort care measures, family is in agreement, voiced understanding, all questions answered, agreed to proceed Attestations Medical Necessity Statement*: Patient requires hospitalization for acute respiratory failure secondary to COVID-19, acute respiratory distress syndrome, sepsis, DIC, hypothermic episodes Coding Level of Care Code Acute Glass Embosser for [facility] Diagnoses Acute respiratory failure with hypoxia J96.01 Sepsis A41.9 Pneumonia due to COVID-19 virus U07.1; J12.89 Lactic acidosis E87.2 Transaminitis R74.01 NSTEMI (non-ST elevated myocardial infarction) I21.4 Atrial fibrillation I48.91 Acute kidney injury N17.9 Hyponatremia E87.1 Syncope R55 Dehydration E86.0 GERD (gastroesophageal reflux disease) K21.9 Hypertension I10 Hypothyroidism E03.9 Insulin dependent type 2 diabetes mellitus E11.9; Z79.4 CHF (congestive heart failure) I50.9 CAD (coronary artery disease) I25.810 Coronary Disease-Associated Artery/Lesion type: bypass graft [place] vs. transplanted heart: [place] heart Associated angina: without angina Hx of CABG Z95.1 COPD (chronic obstructive pulmonary disease) J44.9 Acute respiratory distress syndrome J80 DIC (disseminated intravascular coagulation) D65 Hematochezia K92.1
--- NOTE | 2020-07-19 14:48 | PC.SOCIAL ---
IMM Updated Updated pt's daughter on Pg 2 IMM. No questions voiced. Signed, dated, & timed copy in chart.
--- NOTE | 2020-07-19 15:15 | PC.OT ---
OT tx attempted at this time. Nursing requests OT tx to be withheld today. Will attempt again tomorrow pending pts status.
[2020-07-19] MEDS: lactated ringers 500 ML 999 ML IV (15:33)
[2020-07-19] MEDS: HYDROcodone-acetaminophen 5-325 mg Tablet 1 TAB PO (16:00)
[2020-07-19 16:51] LABS: Glucose Point of Care 196 mg/dL (70-110)
--- NOTE | 2020-07-19 18:25 | PC.NURSE ---
dr garrett aware of uop and restlessness of patient. lr 500cc given with no improvement. patients temp is up to 94 from 89 degrees. her cries are less decernable, norco and ativan given to attempt to calm her. ngt residual 20 after 4 hrs of feeding and several bolus's of water. family aware of decline per the doctor.
[2020-07-19 20:14] LABS: Glucose Point of Care 156 mg/dL (70-110)
--- NOTE | 2020-07-19 20:29 | XRR_ITS ---
PROCEDURE INFORMATION: Exam: XR Chest, 1 View Exam date and time: 07/19/2020 8:33 PM Age: 75 years old Clinical indication: Other: Crackling; Patient HX: Covid +; Additional info: Crackles TECHNIQUE: Imaging protocol: XR of the chest Views: 1 view. COMPARISON: CR XR chest 1V portable [id number] 07/19/2020 1:37 PM FINDINGS: Tubes, catheters and devices: There is an enteric tube demonstrated. The tip of the enteric tube is not definitely visualized. However, the tube is seen projecting below the level of the diaphragm. Lungs: Diffuse, bilateral interstitial and alveolar opacities suspicious for pneumonia. Findings are stable and are more pronounced in the right lung. Pleural space: No pleural effusion. No pneumothorax. Heart/Mediastinum: Stable mild enlargement of the cardiac silhouette. Mediastinal contours are unremarkable. Vasculature: Stable vascular calcifications in the aorta. Bones/joints: Poststernotomy changes in the chest. Bones are diffusely osteopenic. Degenerative changes in the spine and shoulders. Osseous findings are stable. XR/XR chest 1V portable [id number] IMPRESSION: 1. Diffuse, bilateral interstitial and alveolar opacities suspicious for pneumonia. Findings are stable and are more pronounced in the right lung. Recommend followup chest x-ray to ensure resolution. 2. There is an enteric tube demonstrated. The tip of the enteric tube is not definitely visualized. However, the tube is seen projecting below the level of the diaphragm. 3. Incidental/nonacute findings are listed in the report.
[2020-07-19] MEDS: FUROsemide 10 mg/mL SDV 2mL 20 MG IVP (22:15)
--- NOTE | 2020-07-19 22:47 | PC.NURSE ---
New Orders: During Nursing Shift Assessment, RN found pt exhibiting increased signs of shortness of breath with extensive abdominal and accessory muscle work of breathing. Nurse noticed that Pt had JV distention bilaterally, and had increased crackles noted to bilateral bases upon auscultation. No urine output noticed in malhotra catheter bag. RN immediately stopped the tube feedings, checked placement of NG by auscultating over abdomen, and notified MD instrument and control technician of findings. V/O for STAT portable chest x-ray given. After completion of chest x-ray, reviewed findings and gave RN orders to administer Lasix IVP. RN updated MD instrument and control technician on the hold status of tube feedings. As of now, tube feedings are still being held. RN continuing to monitor closely.
[2020-07-20] VITALS (101 sets, daily range): BP systolic 112–158; BP diastolic 48–94; PULSE 71–103; RESP 11–46; TEMP 34.5–36.6; O2SAT 80–94
[2020-07-20] MEDS: LORazepam 2 mg/mL INJ 1 mL 1 MG IVP (03:16)
[2020-07-20] MEDS: pantoprazole 40 mg SDV IVP (03:16)
[2020-07-20 04:38] LABS: Basophils % 0.2 %; Hematocrit 29.4 % (37.0-47.0); Hemoglobin 9.4 g/dL (11.5-15.3); Lymphocytes # 0.8 10^3/uL (0.8-4.8); Lymphocytes % 4.7 %; Mean Corpuscular Hemoglobin 32.4 pg (28.0-34.0); Mean Corpuscular Volume 101.4 fL (81-99); Mean Platelet Volume 12.3 fL (7.4-10.4); Monocytes # 0.6 10^3/uL (0.2-0.9); Monocytes % 3.7 %; Neutrophils # 14.18 10^3/uL (1.8-7.7); Neutrophils % 87.2 %; Nucleated Red Blood Cells # 0.1 /100WBC; Nucleated Red Blood Cells % 0.6 %; Platelet Count 108 10^3/cmm (130-400); Red Cell Distribution Width 20.5 % (12.1-15.1); White Blood Count 16.3 10^3/uL (4.0-10.0)
--- NOTE | 2020-07-20 04:38 | PC.NURSE ---
Patient appears to have a change in work of breathing with usage of abdominal and accessory muscles. MD python consultant notified. After IVP Lasix given at 2215 has produced 125 u/o throughout shift until now. Crackles more prominently noticed throughout. 2nd nurse verified lung sounds. MD python consultant notified of findings. No new orders at this time.
[2020-07-20 05:15] LABS: ABG PCO2 43.2 mmHg (35-45); ABG PH Result 7.31 (7.35-7.45); Arterial Blood Gas Hematocrit 30.4 % (37-47); Base Excess ABG -4.7 mmol/L (-2.0-2.0); Blood Gas Allen Test Pos; Blood Gas Sample Type Arterial; HCO3 ABG 21.5 mmol/L (22-26)
[2020-07-20 05:18] LABS: Blood Gas Operator Identificat HARKR; Blood Gas Sample Site Radial, right
[2020-07-20 05:40] LABS: Slide Review Slide Review Perform
[2020-07-20 06:11] LABS: INR 2.43 (0.8-1.2)
[2020-07-20 06:12] LABS: Fibrinogen 181 mg/dL (174-498)
[2020-07-20 06:29] LABS: D Dimer >= 20.00 ug/mIFEU (0-0.59)
--- NOTE | 2020-07-20 07:00 | XRR_ITS ---
PROCEDURE INFORMATION: Exam: XR Chest, 1 View Exam date and time: 07/20/2020 4:25 AM Age: 75 years old Clinical indication: Condition or disease; Lung condition and disease; Other: Covid; Additional info: SOB TECHNIQUE: Imaging protocol: XR of the chest Views: 1 view. COMPARISON: CR XR chest 1V portable [id number] 07/19/2020 8:40 PM FINDINGS: Tubes, catheters and devices: Feeding tube. Lungs: Bilateral interstitial/airspace disease with marked interval worsening in airspace disease, in the setting of reported COVID-19 pneumonitis. Pleural space: Questionable small pleural effusions. Heart/Mediastinum: No cardiomegaly. Bones/joints: Median sternotomy. Degenerative change. Other findings: Incomplete visualization of the apices. XR/XR chest 1V portable [id number] IMPRESSION: Bilateral interstitial/airspace disease with marked interval worsening in airspace disease, in the setting of reported COVID-19 pneumonitis.
[2020-07-20] MEDS: insulin aspart 70/30 100 units/1 mL 7 UNIT SUBCUT (07:10)
--- NOTE | 2020-07-20 07:14 | PC.NURSE ---
Shift Summary: Patient temp has dropped axillary to 95.6. Bear hugger reapplied to patient. 200 u/o total for shift. Patient continues to show increased work of breathing. Oncoming dayshift RN has been updated on patient overall condition and most recent lab value increases.
[2020-07-20 07:15] LABS: Glucose Point of Care 252 mg/dL (70-110)
[2020-07-20] MEDS: dexamethasone 4 mg/mL INJ 6 MG IVP (08:31)
[2020-07-20] MEDS: ascorbic acid 500 mg Tablet PO (08:32)
[2020-07-20] MEDS: potassium chloride ER 10 mEq Tablet 20 MEQ PO (08:32)
[2020-07-20] MEDS: morphine 4 mg/mL SDV 1 mL 1 MG IVP ×2 (08:33→22:27)
[2020-07-20] MEDS: atorvastatin 40 mg Tablet 20 MG PO (08:34)
[2020-07-20] MEDS: hyDRALAzine 10 mg Tablet PO (08:35)
[2020-07-20] MEDS: isosorbide mononitrate ER 60 mg Tablet 120 MG PO (08:36)
[2020-07-20] MEDS: dicyclomine 10 mg Capsule PO (08:37)
[2020-07-20] MEDS: ferrous sulfate EC 325 mg Tablet 650 MG PO (08:37)
[2020-07-20] MEDS: amlodipine 10 mg Tablet PO (08:39)
[2020-07-20] MEDS: OLANZapine 10 mg VIAL 5 MG IM (08:57)
--- NOTE | 2020-07-20 10:15 | PC.RESP ---
Patient placed on comfort care. 2LPM NC was placed on patient and heated high flow turned off at bedside
[2020-07-20 10:17] LABS: Alanine Aminotransferase 22 U/L (0-33); Albumin Level 3.1 g/dL (3.5-5.2); Alkaline Phosphatase 124 IU/L (35-105); Anion Gap 19.1 (5-19); Aspartate Amino Transferase 53 U/L (0-32); Blood Urea Nitrogen 75 mg/dL (8-23); C Reactive Protein 71.5 mg/L (0.0-4.9); Calcium 8.6 mg/dL (8.5-10.5); Carbon Dioxide 19 mmol/L (22-29); Chloride 115 mmol/L (98-107); Globulin 2.9 g/dL (1.3-4.6); Glucose 216 mg/dL (65-115); Magnesium 2.6 mg/dL (1.7-2.3); Osmolality Calculated 335 mOsm/kg (285-295); Phosphorus 5.4 mg/dL (2.5-4.5); Potassium 5.1 mmol/L (3.5-5.1); Sodium 148 mmol/L (136-145); Total Bilirubin 1.1 mg/dL (0.15-1.2)
[2020-07-20 10:37] LABS: Creatine Phosphokinase 164 U/L (26-192); NT Pro B Type Natriuretic Pept 12141 pg/mL (0-450); Procalcitonin 2.32 ng/mL (0-0.5)
--- NOTE | 2020-07-20 11:20 | PC.OT ---
OT tx attempted. Nurse reports pt status is declining and family is considering comfort care only. OT tx withheld at this time.
--- NOTE | 2020-07-20 12:42 | PC.NURSE ---
PATIENT MADE COMFORT CARE EARLY IN SHIFT. MEDS GIVEN PER NGT AND PULLED, HHF OXYGEN SWITCHED TO 5 L NC, PAIN AND ANXIETY TREATED , RESTRAINTS OFF OF 0730. SHE HAS BEEN QUIET SINCE 0900. SATS DROPPING INTO THE 80'S AND HEART RYTHM IS NOW AFIB OF 10AM. DTR CONTACTED TO SEE IF SHE WANTED US TO BRING HER PARENTS TOGETHER OR FOR HER TO COME SAY GOODBYE AND GIVE THE NEWS TO HER FATHER ABOUT ROBIN FAILING . JAKE ARRIVED AND WAS SHOWN HOW TO DRESS OUT, GIVEN PPE AND A CHAIR TO SIT BY HER BED. AWAITING HER TRANSFER BED.
--- NOTE | 2020-07-20 14:21 | PM.PN ---
Subjective Subjective: Interval history: Yesterday afternoon, patient had profound and persistent hypothermic episodes, not improving with bear hugger, she was less responsive, urine output dramatically decreased, 150 cc over the last 12 hours, continues to be on heated high flow, does have periodic desaturation episodes, normotensive, creatinine this morning 2.0, white blood cell count 16.3, INR 2.43, D-dimer greater than 20, significant DIC, pH 7.31, acidotic PO2 72 on 75%, sodium 148, creatinine 2.0, CRP 71, [id number], pro-Jaswant 2.32, cxray shows Bilateral interstitial/airspace disease with marked interval worsening in airspace disease. Patient has acute hypoxic respiratory failure secondary to COVID-19, persisting to sepsis, metabolic acidosis, acute renal failure, DIC, hypothermia, multiorgan failure worsening over last 12 hours, likelihood of meaningful recovery is very unlikely, prognosis is poor, status is critical Patient's DPOA is her , currently in the viral ICU, this morning,he is not in the best of shape this morning, has nasal flaring, retractions, increased oxygen requirements, continues to be fatigued, havE malaise can say a few words here and there, does follow some commands. I do not believe he understands the severity of her situation, I currently do not believe that he can weigh the risks and benefits, and come to informed decision about his 's care, thus I reached out to Patrick patient's second and third DPOA I spoke to Patrick the morning of 07/20/2020 about goals of care in regards to their mother: -Outlined in patient's healthcare directive, from what I can interpret, it significantly and clearly states that if the physician feels that she does not have a chance of meaningful recovery, to stop life-sustaining measures, stop aggressive interventions, allow her to remain comfortable. Based upon above information, based on patient's own words in the healthcare directive, I feel that we should stop all aggressive interventions, and allow her to remain comfortable, and allow her to remain comfortable, and proceed with comfort care -However, I reached out to Patrick about goals of care, because ultimately this is shared decision making, and its their mom -I discussed with Patrick, patient's current condition, as outlined as above, I do not think that she will have meaningful recovery, her prognosis is poor, status is critical, I have done the best I can in the last 48 hours, I have given her all the medical interventions that can be entertained, except aggressive interventions, I have tried to optimize her medical interventions while balancing out not doing aggressive interventions. If family wants, we can certainly intubate her, placed on the ventilator, and start her on dialysis, but I feel that this is fairly aggressive, and likelihood of meaningful recovery is fairly likely, she has a high morbidity and mortality. After discussion of risk and benefits, family voiced understanding, all questions answered, declined aggressive interventions, declined ventilator, declined dialysis. Patient is already DNR/DNI according to family in the past -I discussed comfort care, discussed the risk and benefits, all parties voiced understanding, all questions answered, agreed to proceed with comfort care stop aggressive interventions, make her as comfortable as possible -Comfort care was initiated, will move patient to a private room in the second floor, Vitals/I&O/Wt Last Vital Signs Temp 94.1 F L 07/20/20 07:15 Pulse 98 07/20/20 12:45 Resp 18 07/20/20 12:45 BP 123/66 07/20/20 12:45 Pulse Ox 84 L 07/20/20 12:45 07/19/20 07/20/20 07/20/20 22:59 06:59 14:59 Intake Total 1260 / 2405.48 150 / 150 Output Total 200 / 350 30 / 30 Balance 1260 / 2255.48 -200 / 2055.48 120 / 120 Physical Exam Const: GENERAL APPEARANCE: lethargic and ill appearing ORIENTATION/CONSCIOUSNESS: Yes patient obtunded and Yes lethargic; not awake, not oriented to person and not oriented to place Eye: COMMON NORMALS: Equal, round and reactive pupils present PUPIL: Yes Equal, round and reactive pupils present Chest: COMMONS NORMALS: normal inspection of the chest Resp: EFFORT & INSPECTION: Yes abnormal respiratory pattern, Yes tachypneic and Yes retractions AUSCULTATION: breath sounds absent Cardio: COMMON NORMALS: S1 normal heart sound present and S2 normal heart sound present RATE: tachycardic HEART SOUNDS: S1 normal heart sound present and S2 normal heart sound present GI: COMMON NORMALS: Normal to inspection, nondistended, normoactive bowel sounds present, Soft to palpation and non-tender PALPATION: Yes Soft to palpation Extremity: COMMON NORMALS: capillary refill normal, no clubbing, cyanosis or edema and no pedal edema Neuro: SENSORIUM/ORIENTATION: No oriented to person, No oriented to place and Yes lethargic Urinary Catheter Management^: Best: Cath Placed During This Visit: yes Reason for Continuing Indwelling Catheter: Accurate Measurement of Urinary Output in Critically Ill Patients Urinary Catheter Date of Insertion: 07/15/20 Urinary Catheter Time of Insertion: 12:10 Data : 07/20/20 03:30 07/20/20 03:30 A&P Assessment and plan (1) Acute respiratory failure with hypoxia: Proceeding to comfort care, DNR/DNI -Risk factors include CHF, CABG, CAD, COPD, exposure to secondhand smoking -With acute respiratory distress syndrome -Secondary to COVID-19 pneumonia -With secondary bacterial pneumonia -With DIC, resolving -Developing hypothermic episodes, bear hugger -Chest x-ray shows worsening bilateral infiltrates, concerning for developing acute respiratory distress syndrome and/or pulmonary edema, Plan: -Currently DNR/DNI, DURABLE POWER OF MANUAL LATHE MACHINIST paperwork in place, first decision maker is , second is Shaun, there is Polina -Status is critical, prognosis is guarded -We will readdress goals of care with patient's family today, clinically she is about the same compared to yesterday, however oxygen requirements have improved, radiographic no significant change, blood markers do look a bit better, but is dehydrated -viral ICU -Continue heated high flow, BiPAP as needed -Decadron 6 mg IV push daily -Remdesivir patient has finished course -Hypothermic episodes, bear hugger, external warming -Agitation, Precedex, avoid if heart rate less than 60, Zyprexa as needed -Unfortunately ER did not obtain blood cultures, urine cultures, sputum cultures, before antibiotics were given -Follow blood cultures, urine cultures sputum cultures, sputum cultures, MRSA -Continue continue Primaxin, azithromycin, Zyvox -Placed NG tube, Glucerna, free water flushes -Lungs have crackles secondary to acute respiratory distress syndrome, not pulmonary edema, I would hold off on giving her any more Lasix given her creatinine 1.7, serum sodium 120, as patient is becoming dehydrated, insensible losses secondary acute respiratory failure, she has an equal balance -Hematochezia secondary to lower GI bleed and/or DIC, has lost roughly 2 units of blood, 1 unit PRBC was given, 1 unit ffp, monitor hemoglobin closely, monitor INR, monitor for worsening bleeding, monitor for DIC -Albuterol, Advair -Oxygen therapy -Daily EKGs -Daily inflammatory markers -Hemoglobin 10.4, D-dimer 12.26 -Therapeutic Lovenox for DVT prophylaxis and PE prophylaxis on hold given GI bleed -Protonix for GI prophylaxis, 40 mg IV twice daily Status: Acute (2) Sepsis: Status: Acute (3) Pneumonia due to COVID-19 virus: Status: Acute (4) Lactic acidosis: -Resolved Status: Acute (5) Transaminitis: Secondary to COVID-19 Status: Acute (6) NSTEMI (non-ST elevated myocardial infarction): -Has complaints of pleuritic chest pain -History of CABG x4, CAB x6 -Baseline troponin pending 42, unfortunately troponin series was not drawn, will have to redraw -EKG shows lateral ST depressions -Likely type II secondary to acute respiratory failure and COVID-19 -Echocardiogram shows an EF of 50%, grade 3 out of 4 diastolic dysfunction, mild diffuse hypokinesia of the septum and basal inferior wall segments, severely elevated filling pressures, moderately increased left atrial size, moderate mitral valve regurg, moderate mild tricuspid valve regurg, moderate pulmonary hypertension 67 mmHg -Possible myopericarditis PLAN: -Serial EKGs, serial troponins, monitor for chest pain -Aspirin, Plavix, on hold given GI bleed and DIC -Continue statin -Spoke to cardiology, no urgent need for stress testing or cardiac cath, likely will require outpatient follow-up Status: Acute (7) Atrial fibrillation: -EKG shows A. fib, telemetry shows A. fib, rate is controlled -Therapeutic Lovenox on hold -Continue the bsystolic -Telemetry monitoring -Likely from COVID-19 pneumonia, acute respiratory failure Status: Acute (8) Acute kidney injury: -Creatinine 1.9 -Continue to monitor, baseline 1.4-5 Status: Acute (9) Hyponatremia: Hypovolemic hyponatremia, resolved Status: Acute (10) Syncope: Sounds like true syncopal episode 2 weeks ago Unsure if it is related to Covid symptoms Echocardiogram as above Carotid ultrasound shows: Moderate to heavy heterogeneous plaques at the bifurcations and internal carotid arteries bilaterally, suggestive of 50 to 79% . Intimal thickening and minimal plaques in the common carotid arteries bilaterally. Elevated velocity in the left external carotid artery, may suggest hemodynamically significant stenosis -Findings are concerning for symptomatic carotids, will require a CTA of the head and neck once creatinine has stabilized CT of the head negative for acute hemorrhage, acute stroke, subdural hematoma Telemetry monitoring does show A. fib events, EKG shows A. fib, lateral ST depressions Cannot rule out cardiac etiology, continue telemetry monitoring Status: Acute (11) Dehydration: Status: Acute (12) GERD (gastroesophageal reflux disease): Status: Acute (13) Hypertension: Status: Acute (14) Hypothyroidism: Continue levothyroxine Status: Acute (15) Insulin dependent type 2 diabetes mellitus: Low blood sugars overnight, NPH 7030 on hold, continue low-dose sliding scale as needed Status: Acute (16) CHF (congestive heart failure): Status: Acute (17) CAD (coronary artery disease): Status: Acute Qualifiers: Coronary Disease-Associated Artery/Lesion type: bypass graft [place] vs. transplanted heart: [place] heart Associated angina: without angina Qualified Code(s): I25.810 - Atherosclerosis of coronary artery bypass graft(s) without angina pectoris (18) Hx of CABG: Status: Acute (19) COPD (chronic obstructive pulmonary disease): Status: Acute (20) Acute respiratory distress syndrome: Status: Acute (21) DIC (disseminated intravascular coagulation): Status: Acute (22) Hematochezia: Status: Acute Additional A&P Information Plan for today continue high flow, hold Lasix therapy, gentle hydration, Ativan and morphine for anxiety and air hunger, if patient clinically starts to deteriorate, will pursue full comfort care measures, family is in agreement, voiced understanding, all questions answered, agreed to proceed Attestations Medical Necessity Statement*: Acute hypoxic respiratory failure secondary to COVID-19 pneumonia, proceeding to comfort care, requires hospitalization Coding Level of Care Code Acute Mailroom Manager for Fabiola Lamb Diagnoses Acute respiratory failure with hypoxia J96.01 Sepsis A41.9 Pneumonia due to COVID-19 virus U07.1; J12.89 Lactic acidosis E87.2 Transaminitis R74.01 NSTEMI (non-ST elevated myocardial infarction) I21.4 Atrial fibrillation I48.91 Acute kidney injury N17.9 Hyponatremia E87.1 Syncope R55 Dehydration E86.0 GERD (gastroesophageal reflux disease) K21.9 Hypertension I10 Hypothyroidism E03.9 Insulin dependent type 2 diabetes mellitus E11.9; Z79.4 CHF (congestive heart failure) I50.9 CAD (coronary artery disease) I25.810 Coronary Disease-Associated Artery/Lesion type: bypass graft [place] vs. transplanted heart: [place] heart Associated angina: without angina Hx of CABG Z95.1 COPD (chronic obstructive pulmonary disease) J44.9 Acute respiratory distress syndrome J80 DIC (disseminated intravascular coagulation) D65 Hematochezia K92.1
--- NOTE | 2020-07-21 01:43 | PM.EVENT ---
Event Note Event Note: Patient at 1:04 AM, note to be done by Dr. Florence
--- NOTE | 2020-07-21 04:08 | PC.NURSE ---
Patient was noted to be without heart sounds or pulse with no noted respirations at 0100 family at bedside and maid housekeeper and Provider notified. Plan is to release body to [facility]. Patient daughter at bedside and going down to VICU to tell patient sabiha. Patient body cleaned up and given a bath with linen changed and all invasive lines removed. Mother ring and wedding set removed by daughter and taken along with all other belongings blankets and clothes from home that was brought on the ambulance. IN question was patient dentures which were not present in rooom but going to check with VICU. Body release documemt sighed and awaiting arrival of [facility] home.
--- NOTE | 2020-08-02 14:13 | P.DES_ITS ---
Discharge Providers DDS Date of Admission: 07/12/20 18:37 Date Summary Completed: 08/02/20 Attending Provider at Admission: Jovan Kohler MD Time of : 01:04 Attending Provider at Discharge: Jovan Kohler MD Primary Care Provider: DO BRAEDEN Carmona Diagnoses Hospital Diagnoses (1) Acute respiratory failure with hypoxia: (2) Sepsis: (3) Pneumonia due to COVID-19 virus: (4) Lactic acidosis: (5) Transaminitis: (6) NSTEMI (non-ST elevated myocardial infarction): (7) Atrial fibrillation: (8) Acute kidney injury: (9) Hyponatremia: (10) Syncope: (11) Dehydration: (12) GERD (gastroesophageal reflux disease): (13) Hypertension: (14) Hypothyroidism: (15) Insulin dependent type 2 diabetes mellitus: (16) CHF (congestive heart failure): (17) CAD (coronary artery disease): Qualifiers: Coronary Disease-Associated Artery/Lesion type: bypass graft [place] vs. transplanted heart: [place] heart Associated angina: without angina Qualified Code(s): I25.810 - Atherosclerosis of coronary artery bypass graft(s) without angina pectoris (18) Hx of CABG: (19) COPD (chronic obstructive pulmonary disease): (20) Acute respiratory distress syndrome: (21) DIC (disseminated intravascular coagulation): (22) Hematochezia: Reason for Visit Reason for Visit: COVID + Summary Date and Time of Date of : 07/21/20 Time of : 01:04 Summary Summary: Ying Valdez is a 75 year old female with a past medical history of CABG x4, CAD status post stenting x6, history of CHF, history of COPD, history of exposure to secondhand smoking, insulin-dependent type 2 diabetes mellitus, hypothyroidism, GERD, who presents to [facility] due to with 2 to 3- week history of cough, shortness of breath, fatigue, malaise, pleuritic-like chest pain, syncopal episode Patient was admitted to [facility] for acute respiratory failure with hypoxia secondary to COVID-19, secondary bacterial infection, was admitted to the general medical floors, Covid unit. Received Decadron, remdesivir, oxygen therapy, nebulizer treatments, vitamin C, zinc, aggressive pulmonary toilet, antibiotics for secondary bacterial infection and clinically monitored. Unfortunately patient's clinical status worsened, respiratory status worsened, oxygen requirements increased, having episodes of delirium secondary COVID-19, requiring her to be moved down to the viral ICU. In the viral ICU patient started to develop acute respiratory distress syndrome, with DIC and evidence of multiorgan failure secondary to COVID-19 pneumonia. She was transitioned to broad-spectrum antibiotic therapy, full dose anticoagulation, BiPAP and cl inically monitored, and other full medical interventions. Patient's clinical status worsened, after discussion with patient's family and review of patient's DPOA paperwork she did not want aggressive interventions if the likelihood of meaningful recovery is unlikely. Patient's family voiced understanding, all questions answered, agreed to proceed. After discussion with patient to [employer]'s, and review of her DPO paperwork, decision was made to make her DNR/DNI. Patient received broad-spectrum antibiotic therapy, anticoagulant therapy, PRBC, remdesivir, Decadron, Lasix therapy and clinically monitored. Unfortunately patient's respiratory status worsened, mentation worsened, she was alert oriented x0 at times, with severe delirium. She required NG tube placement, for tube feedings, free water flushes. Unfortunately patient continued to have worsening acute respiratory distress syndrome, with high oxygen requirements, pulmonary edema, DIC, worsening hypothermia. Given the severity of her infection, core morbidities, the low likelihood of meaningful recovery he had discussion with patient's family about goals of care. After discussion with patient's family, and review of her [employer] paperwork it was decided to make her comfort care. Patient's family was present, all questions answered, agreed to proceed. Patient July 21, 2020 at 1:04 AM Risk factors include CHF, CABG, CAD, COPD, exposure to secondhand smoking -With acute respiratory distress syndrome -Secondary to COVID-19 pneumonia -With secondary bacterial pneumonia -With DIC -Developing hypothermic episodes -Chest x-ray shows worsening bilateral infiltrates, concerning for developing acute respiratory distress syndrome and/or pulmonary edema, Plan: -Currently DNR/DNI, [employer] paperwork in place, first decision maker is , second is Shaun, there is Polina -Status is critical, prognosis is poor -After discussion of risks and benefits patient's family wants to proceed to comfort care -viral ICU -Continue heated high flow, BiPAP as needed -Decadron 6 mg IV push daily -Remdesivir patient has finished course -Hypothermic episodes, bear hugger, external warming -Agitation, Precedex, avoid if heart rate less than 60, Zyprexa as needed -Unfortunately ER did not obtain blood cultures, urine cultures, sputum cultures, before antibiotics were given -Follow blood cultures, urine cultures sputum cultures, sputum cultures, MRSA -Continue continue Primaxin, azithromycin, Zyvox -Placed NG tube, Glucerna, free water flushes -Lungs have crackles secondary to acute respiratory distress syndrome, not pulmonary edema, I would hold off on giving her any more Lasix given her creatinine 1.7, serum sodium 120, as patient is becoming dehydrated, insensible losses secondary acute respiratory failure, she has an equal balance -Hematochezia secondary to lower GI bleed and/or DIC, has lost roughly 2 units of blood, 1 unit PRBC was given, 1 unit ffp, monitor hemoglobin closely, monitor INR, monitor for worsening bleeding, monitor for DIC -Albuterol, Advair -Oxygen therapy -Daily EKGs -Daily inflammatory markers -Hemoglobin 10.4, D-dimer 12.26 -Therapeutic Lovenox for DVT prophylaxis and PE prophylaxis on hold given GI bleed -Protonix for GI prophylaxis, 40 mg IV twice daily Status: Acute (2) Sepsis: Status: Acute (3) Pneumonia due to COVID-19 virus: Status: Acute (4) Lactic acidosis: -Resolved Status: Acute (5) Transaminitis: Secondary to COVID-19 Status: Acute (6) NSTEMI (non-ST elevated myocardial infarction): -Has complaints of pleuritic chest pain -History of CABG x4, CAB x6 -Baseline troponin pending 42, unfortunately troponin series was not drawn, will have to redraw -EKG shows lateral ST depressions -Likely type II secondary to acute respiratory failure and COVID-19 -Echocardiogram shows an EF of 50%, grade 3 out of 4 diastolic dysfunction, mild diffuse hypokinesia of the septum and basal inferior wall segments, severely elevated filling pressures, moderately increased left atrial size, moderate mitral valve regurg, moderate mild tricuspid valve regurg, moderate pulmonary hypertension 67 mmHg -Possible myopericarditis PLAN: -Serial EKGs, serial troponins, monitor for chest pain -Aspirin, Plavix, on hold given GI bleed and DIC -Continue statin -Spoke to cardiology, no urgent need for stress testing or cardiac cath, likely will require outpatient follow-up Status: Acute (7) Atrial fibrillation: -EKG shows A. fib, telemetry shows A. fib, rate is controlled -Therapeutic Lovenox on hold -Continue the bsystolic -Telemetry monitoring -Likely from COVID-19 pneumonia, acute respiratory failure Status: Acute (8) Acute kidney injury: -Creatinine 1.9 -Continue to monitor, baseline 1.4-5 Status: Acute (9) Hyponatremia: Hypovolemic hyponatremia, resolved Status: Acute (10) Syncope: Sounds like true syncopal episode 2 weeks ago Unsure if it is related to Covid symptoms Echocardiogram as above Carotid ultrasound shows: Moderate to heavy heterogeneous plaques at the bifurcations and internal carotid arteries bilaterally, suggestive of 50 to 79% . Intimal thickening and minimal plaques in the common carotid arteries bilaterally. Elevated velocity in the left external carotid artery, may suggest hemodynamically significant stenosis -Findings are concerning for symptomatic carotids, will require a CTA of the head and neck once creatinine has stabilized CT of the head negative for acute hemorrhage, acute stroke, subdural hematoma Telemetry monitoring does show A. fib events, EKG shows A. fib, lateral ST depressions Cannot rule out cardiac etiology, continue telemetry monitoring Status: Acute (11) Dehydration: Status: Acute (12) GERD (gastroesophageal reflux disease): Status: Acute (13) Hypertension: Status: Acute (14) Hypothyroidism: Continue levothyroxine Status: Acute (15) Insulin dependent type 2 diabetes mellitus: Low blood sugars overnight, NPH 7030 on hold, continue low-dose sliding scale as needed Status: Acute (16) CHF (congestive heart failure): Status: Acute (17) CAD (coronary artery disease): Status: Acute Qualifiers: Coronary Disease-Associated Artery/Lesion type: bypass graft [place] vs. transplanted heart: [place] heart Associated angina: without angina Qualified Code(s): I25.810 - Atherosclerosis of coronary artery bypass graft(s) without angina pectoris (18) Hx of CABG: Status: Acute (19) COPD (chronic obstructive pulmonary disease): Status: Acute (20) Acute respiratory distress syndrome: Status: Acute (21) DIC (disseminated intravascular coagulation): Status: Acute (22) Hematochezia: Status: Acute Additional Data Confirmation of as documented by pronouncing clinician: no pulse Family: contacted Additional persons at bedside: nursing staff Attending/PCP notified?: Attending notified Advance directives?: No Discharge Plan Discharge Patient Disposition: DS Attestations Time Spent in /Discharge Care*: critical care time Critical Care Time (min): 50 Quality - AMI: AMI present?: No Quality - Stroke: CVA present?: No Quality - VTE: VTE present?: No Coding Level of Care Code 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 transplanted heart: [place] heart Associated angina: without angina Hx of CABG Z95.1 COPD (chronic obstructive pulmonary disease) J44.9 Acute respiratory distress syndrome J80 DIC (disseminated intravascular coagulation) D65 Hematochezia K92.1
== END 2020-07-21 05:00 | disposition expired | DRG 871 ==
LOC: ER 17:23 → MEDSURG 18:56 → ICU 07-13 20:18 → MEDSURG 07-20 15:29
PROVIDERS: Internal Medicine; Registered Nurse; Admitting Provider Family Medicine; Emergency Provider Emergency Medicine; PCP Family Medicine; Visit Provider Family Medicine
DX: A41.9 Sepsis, unspecified organism (principal); U07.1 COVID-19; J12.89 Other viral pneumonia; J15.9 Unspecified bacterial pneumonia; J96.01 Acute respiratory failure with hypoxia; I21.A1 Myocardial infarction type 2; D65 Disseminated intravascular coagulation [defibrination syndrome]; J44.1 Chronic obstructive pulmonary disease with (acute) exacerbation; I13.0 Hypertensive heart and chronic kidney disease with heart failure and stage 1 through stage 4 chronic kidney disease, or unspecified chronic kidney disease; N17.9 Acute kidney failure, unspecified; E87.1 Hypo-osmolality and hyponatremia; N39.0 Urinary tract infection, site not specified; E87.2 Acidosis; F05 Delirium due to known physiological condition; K92.1 Melena; Z95.1 Presence of aortocoronary bypass graft; I25.10 Atherosclerotic heart disease of native coronary artery without angina pectoris; Z95.5 Presence of coronary angioplasty implant and graft; I50.9 Heart failure, unspecified; N18.9 Chronic kidney disease, unspecified; E11.22 Type 2 diabetes mellitus with diabetic chronic kidney disease; Z77.22 Contact with and (suspected) exposure to environmental tobacco smoke (acute) (chronic); E03.9 Hypothyroidism, unspecified; K21.9 Gastro-esophageal reflux disease without esophagitis; I27.20 Pulmonary hypertension, unspecified; I48.91 Unspecified atrial fibrillation; E86.0 Dehydration; Z51.5 Encounter for palliative care; T68.XXXA Hypothermia, initial encounter; Z66 Do not resuscitate; I08.3 Combined rheumatic disorders of mitral, aortic and tricuspid valves
CPT/HCPCS: 12345; 36415; 36416; 36430; 36600; 51702; 51798; 70450; 71045; 71275; 80051; 80053; 80202; 82330; 82550; 82803; 82805; 82962; 83605; 83615; 83735; 83880; 84100; 84145; 84443; 84484; 85014; 85018; 85025; 85362; 85378; 85384; 85610; 85730; 86140; 86850; 86900; 86920; 86927; 87040; 87086; 87426; 87641; 93005; 93306; 93880; 94640; 94664; 96372; 96374; 96375; 97110; 97161; 97166; 97535; 99283; C9113; J0360; J0456; J0743; J1100; J1170; J1200; J1650; J1720; J1815; J1940; J2020; J2060; J2270; J3370; J3490; J3535; J7030; J7040; J7050; P9016; P9017; P9047; Q9967